=== PATIENT | female | born 1970 | race Caucasian/White ===

== ENCOUNTER → 2020-09-07 14:53 | Outpatient (BNVA) | payer MEDICARE, SELFPAY | PROVIDERS: PCP Physician Assistant Medical; Visit Provider Anesthesiology | DX: G89.29 Other chronic pain (principal); G62.9 Polyneuropathy, unspecified; F10.20 Alcohol dependence, uncomplicated; Z79.899 Other long term (current) drug therapy | CPT/HCPCS: 99203 ==

== ENCOUNTER → 2020-12-01 14:41 | Outpatient (BNVA) | payer MEDICARE, SELFPAY | PROVIDERS: PCP Physician Assistant Medical; Visit Provider Urology | DX: N32.81 Overactive bladder (principal); R35.1 Nocturia; R39.15 Urgency of urination | CPT/HCPCS: 81002; 99212 ==

== ENCOUNTER → 2022-01-06 14:08 | Outpatient (BNVA) | payer MEDICARE, SELFPAY | PROVIDERS: PCP Physician Assistant Medical; Visit Provider Nurse Practitioner Family | DX: G43.009 Migraine without aura, not intractable, without status migrainosus (principal); R20.2 Paresthesia of skin; R25.1 Tremor, unspecified | CPT/HCPCS: 99212 ==

== ENCOUNTER → 2022-04-04 11:32 | Outpatient (BNVA) | payer BC, MEDICAID, SELFPAY | PROVIDERS: PCP Internal Medicine Geriatric Medicine; Visit Provider Nurse Practitioner Family | DX: R20.2 Paresthesia of skin (principal) ==

== ENCOUNTER → 2023-01-23 13:03 | Outpatient (BNVA) | payer BC, MEDICAID, SELFPAY | PROVIDERS: PCP Internal Medicine Geriatric Medicine; Visit Provider Nurse Practitioner Family | DX: G43.009 Migraine without aura, not intractable, without status migrainosus (principal); R20.2 Paresthesia of skin; R25.1 Tremor, unspecified ==

== ENCOUNTER → 2023-05-19 09:45 | Outpatient (BNVA) | payer BC, MEDICAID, SELFPAY | PROVIDERS: PCP Internal Medicine Geriatric Medicine; Visit Provider Nurse Practitioner Family ==

== ENCOUNTER 2023-09-01 14:09 | Outpatient (AMB) | payer MEDICARE, MEDICAID, SELFPAY ==
--- NOTE | 2023-09-01 14:14 | A.OFFVIS_ITS ---
Intake Vital Signs 09/01/23 14:15 Weight 226 lb 4 oz BP 140/80 H Blood Pressure Location Lt brachial Position Sitting Pulse 110 H Pulse Source Pulse Oximeter Pulse Oximetry (%) 98 Oxygen Delivery Method Room Air Intake Visit Reasons: 3m follow up-Confirmed Intake Note: Pt presents today for migraine fup, states shes having headaches daily , ajovy helped at first and now they are back ajovy is due 09/06. Movement issues are about the same. Allergies baclofen Adverse Reaction (Unknown, Verified 09/01/23 14:19) Confusion topiramate [From Topamax] Adverse Reaction (Unknown, Verified 09/01/23 14:19) Confusion Medication List - Last Reconciled 09/01/23 by NANCI Pardo acetaminophen (Tylenol Extra Strength) 500 mg PO Q6H PRN amitriptyline 75 mg (1.5 x 50 mg) PO BEDTIME 30 days atorvastatin 20 mg PO DAILY carbidopa-levodopa 25-100 mg 1.5 tabs PO QID 30 days clonazepam 0.5 mg PO DAILY PRN denosumab (Prolia) mg subcut esomeprazole magnesium (Nexium) 40 mg PO DAILY fremanezumab-vfrm (Ajovy) 225 mg (1.5 mL) subcut ONCE 28 days furosemide 20 mg PO DAILY gabapentin 600 mg PO TID 30 days levothyroxine 88 mcg PO DAILY lurasidone (Latuda) 80 mg PO DAILY lurasidone 120 mg PO DAILY methocarbamol 750 mg PO QID PRN methylphenidate HCl ER 54 mg PO DAILY nicotine (Nicoderm) transdermal nicotine (polacrilex) (Nicorette) 2 mg buccal Q2H onabotulinumtoxinA (Botox) 200 units IM ONCE 12 weeks triamterene-hydrochlorothiazid 37.5-25 mg 1 cap PO DAILY venlafaxine ER 37.5 mg PO DAILY [Vitamin D + K 650/12.5mcg PO DAILY] HPI HPI Comments History of Present Illness Details 53-yr-old female presents for f/u visit. Pt denies any significant interval medical changes. Pt reports that her Ajovy is no longer effective. Thus we advised her to try Botox, which was recently approved. Having an almost daily migraine headache. She also has sharp shooting pain in the top of her head. This lasts just a second but is very intense. Uisng Tylenol most days. Sumatriptan was previously not effective. Hallucination have improved with recent reduction in CD-LD. Shaking is stable. Feeling more off-balance- not sure why. Denies lightheadedness. No falls. Mood- depressed and anxious. Seeing her therapist and psychiatrist. She is sleeping a ton . Previous HST was normal in 2019. She has 50lb since then. Endorses snoring, excessive daytime sleepiness. [facility] Medical History Overactive bladder Alcoholism Polyneuropathy Family History Mother Thyroid disease CHF (congestive heart failure) Afib PAD (peripheral artery disease) Maternal Grandfather HTN (hypertension) Paternal Grandmother Cancer Daughter No problems noted. Social History Alcohol intake: current Alcohol intake frequency: holidays/special occasions only Patient Tobacco Use Status: Current someday Tobacco user Cigarettes Per Day: 10 Years Smoked: 20 Substance Use Type: Marijuana Review of Systems Const All systems reviewed & are unremarkable except as noted in HPI and below Physical Exam Vital Signs: Last Vital Signs Pulse 110 H 09/01/23 14:15 BP 140/80 H 09/01/23 14:15 Pulse Ox 98 09/01/23 14:15 Oxygen Delivery Method Room Air 09/01/23 14:15 Const General: cooperative and no acute distress Orientation/consciousness: patient oriented x3 HEENT Head: Yes normocephalic Resp Effort & Inspection: normal respiratory effort and able to speak in complete sentences Neuro Other: No tremor today. FFM slightly decreased. General: patient oriented x3 and CN's II-XI intact bilaterally Cognition (Neuro): normal cognition Motor exam (neuro): 5/5 motor strength present throughout Psych Appearance: grossly normal Mental Status: mental status grossly normal Speech and movement: Clear speech present Affect: normal affect Attitude: cooperative Assessment & Plan Assessment & Plan (1) Chronic migraine without aura: Code(s): G43.709 - Chronic migraine without aura, not intractable, without status migrainosus (2) Snoring: Code(s): R06.83 - Snoring (3) Excessive daytime sleepiness: Comment: ESS 15 Code(s): G47.19 - Other hypersomnia (4) Sleep difficulties: Code(s): G47.9 - Sleep disorder, unspecified (5) Tremor: Comment: ? chronic neuroleptic exposure. 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 Code(s): R25.1 - Tremor, unspecified (6) Paresthesia: Comment: hands, forearms, collarbones, shins Code(s): R20.2 - Paresthesia of skin Plan HST to assess for sleep apnea For movement and RLS s/s: CBC and CMP- NL Will request autoimmune lab results- currently pending. Continue CD-LD 25-100mg 1.5 - 1 - 1.5 - 1 tab(s) Will refer to PT for gait training ? For chronic migraine: Start Btox as ordered. Once Botox started, stop Ajovy 225 mg sc- lost effectiveness Continue? amitriptyline 75 mg q.h.s. Trial Rizatripatn prn. May continue as needed Aleve or Advil at headache onset Tylenol prn at onset of stabbing headache. Previous migraine prevention trials- topiramate- caused confusion, depakote- not tolerated, tegretol/trileptal- electrolyte disturbance , and lisinopril- ineffective. Would avoid BBs- as pt is currently on amlodipine w/ low and on multiple medications that can induce orthostatic hypotension- such as carbidolopa- levodopa, rexulti Future considerations: indomethacin for stabbing LOPEZ (but would need to hold her Meloxicam). ? For paresthesias: Continue Gabapentin 600mg tid. ? f/u in 3 months or sooner prn. Orders: Orders RT home sleep study Today G47.19 - Other hypersomnia, G47.9 - Sleep disorder, unspecified, R06.83 - Snoring PT Evaluation and Treatment Today G62.9 - Polyneuropathy, unspecified, R20.2 - Paresthesia of skin, R26.81 - Unsteadiness on feet Medications: New rizatriptan max 2 tabs per day or 4 tabs per week 5 - 10 mg (0.5 - 1 x 10 mg) PO Q2H 21 days PRN 12 tabs 3RF migraine headache Coding Level of Care Code Est Pt Level 4 (09841) Diagnoses Chronic migraine without aura G43.709 Snoring R06.83 Excessive daytime sleepiness G47.19 Sleep difficulties G47.9 Tremor R25.1 Paresthesia R20.2
[2023-09-01 14:15] VITALS: BP 140/80; PULSE 110; O2SAT 98
== END 2023-09-01 15:22 | disposition home or self-care (01) ==
PROVIDERS: PCP Internal Medicine Geriatric Medicine; Visit Provider Nurse Practitioner Family
DX: G43.709 Chronic migraine without aura, not intractable, without status migrainosus (principal); R06.83 Snoring; G47.19 Other hypersomnia; G47.9 Sleep disorder, unspecified; R25.1 Tremor, unspecified; R20.2 Paresthesia of skin
CPT/HCPCS: 99214

== ENCOUNTER → 2023-09-01 14:09 | Outpatient (BNVA) | payer MEDICARE, MEDICAID, SELFPAY | PROVIDERS: PCP Internal Medicine Geriatric Medicine; Visit Provider Nurse Practitioner Family | DX: G43.709 Chronic migraine without aura, not intractable, without status migrainosus (principal); R06.83 Snoring; G47.19 Other hypersomnia; G47.9 Sleep disorder, unspecified; R25.1 Tremor, unspecified; R44.3 Hallucinations, unspecified; R26.81 Unsteadiness on feet; R20.2 Paresthesia of skin; G62.9 Polyneuropathy, unspecified | CPT/HCPCS: 99212 ==

== ENCOUNTER 2023-09-05 14:29 | Outpatient (AMB) | payer MEDICARE, MEDICAID, SELFPAY ==
--- NOTE | 2023-09-05 14:32 | MHC.OFFVIS ---
Intake Vital Signs 09/05/23 14:33 Height 5 ft 5 in Weight 228 lb 6 oz BMI 38.0 BP 158/86 H Blood Pressure Location Lt brachial Position Sitting Respiration 18 Pulse 100 Pulse Source Pulse Oximeter Pulse Oximetry (%) 98 Oxygen Delivery Method Room Air Intake Visit Reasons: BOTOX Intake Note: Pt presents to office for Botox injections. Patient Access Representative Required: No Allergies baclofen Adverse Reaction (Unknown, Verified 09/05/23 14:33) Confusion topiramate [From Topamax] Adverse Reaction (Unknown, Verified 09/05/23 14:33) Confusion Medication List - Last Reconciled 09/05/23 by Deya Alfonso MD acetaminophen (Tylenol Extra Strength) 500 mg PO Q6H PRN amitriptyline 75 mg (1.5 x 50 mg) PO BEDTIME 30 days atorvastatin 20 mg PO DAILY carbidopa-levodopa 25-100 mg 1.5 tabs PO QID 30 days clonazepam 0.5 mg PO DAILY PRN denosumab (Prolia) mg subcut esomeprazole magnesium (Nexium) 40 mg PO DAILY furosemide 20 mg PO DAILY gabapentin 600 mg PO TID 30 days levothyroxine 88 mcg PO DAILY lurasidone (Latuda) 80 mg PO DAILY lurasidone 120 mg PO DAILY methocarbamol 750 mg PO QID PRN methylphenidate HCl ER 54 mg PO DAILY onabotulinumtoxinA (Botox) 200 units IM ONCE 12 weeks rizatriptan 5 - 10 mg (0.5 - 1 x 10 mg) PO Q2H PRN 21 days triamterene-hydrochlorothiazid 37.5-25 mg 1 cap PO DAILY venlafaxine ER 37.5 mg PO DAILY [Vitamin D + K 650/12.5mcg PO DAILY] HPI HPI Comments History of Present Illness Details ? 53y/o female comes for treatment of migraines with botox. ??? Most frequent reported adverse reactions following injection of botox for chronic migraine include neck pain (9%), headache(5%), eyelid ptosis(4%), migraine(4%), muscular weakness(4%), musculuskeletal stiffness(4%), bronchitis(3%), injection site pain (3%), musculoskeletal pain(3%), myalgia(3%), facial paresis(2%), HTN(2%) and muscle spasms(2%) were discussed in detail. ??? Botulinum toxin typeA 200units Lot no [id number] expiration Dec 2025 was diluted with 4 cc of normal saline . ??? Muscles injected- ??? Frontalis 4 sites ??? Procerus 1 site ??? Correspondence Section Supervisor- 2 sites ??? Temporalis- 8 sites ??? Occipitalis- 6 sites ??? Cervical paraspinals- 4 sites ??? Trapezius- 6 sites- 10 units each ??? 5 units each in 31 site ??? Total use- 185units ??? Discarded-15units [facility] Medical History Overactive bladder Alcoholism Polyneuropathy Family History Mother Thyroid disease CHF (congestive heart failure) Afib PAD (peripheral artery disease) Maternal Grandfather HTN (hypertension) Paternal Grandmother Cancer Daughter No problems noted. Social History Alcohol intake: current Alcohol intake frequency: holidays/special occasions only Patient Tobacco Use Status: Current someday Tobacco user Cigarettes Per Day: 10 Years Smoked: 20 Substance Use Type: Marijuana Physical Exam Vital Signs: Last Vital Signs Pulse 100 09/05/23 14:33 Resp 18 09/05/23 14:33 BP 158/86 H 09/05/23 14:33 Pulse Ox 98 09/05/23 14:33 Oxygen Delivery Method Room Air 09/05/23 14:33 BMI result Body Mass Index 38.0 Const General: cooperative and no acute distress Orientation/consciousness: patient oriented x3 HEENT Head: Yes normocephalic Resp Effort & Inspection: normal respiratory effort and able to speak in complete sentences Neuro Other: No tremor today. FFM slightly decreased. General: patient oriented x3 and CN's II-XI intact bilaterally Cognition (Neuro): normal cognition Motor exam (neuro): 5/5 motor strength present throughout Psych Appearance: grossly normal Mental Status: mental status grossly normal Speech and movement: Clear speech present Affect: normal affect Attitude: cooperative Office Procedures Botulinum toxin Injection 66245 - Migraine Procedure code (CPT) selection complete Office Meds onabotulinumtoxinA 200 unit solution for injection Performing Provider: Deya Alfonso MD Performing Location: [facility] [place] [facility] Administered by: Deya Alfonso MD on 09/05/23 15:05 Dose Route Admin Location Dispensed Lot Number Expiration Date [facility] Paper Stripper 185 unit subcut 200 units [id number] 12/14/25 8261-7354-02 [employer]ERGAN/BOTOX Comments: see hpi Assessment & Plan Assessment & Plan (1) Chronic migraine without aura: Code(s): G43.709 - Chronic migraine without aura, not intractable, without status migrainosus Plan Patient tolerated the procedure well She will call with any side effects Orders: Orders AMB Botulinum toxin Injection Today G43.709 - Chronic migraine without aura, not intractable, without status migrainosus Coding Level of Care Code Est Pt Level 1 (73117) Diagnoses Chronic migraine without aura G43.709 CPT Codes Botox Injection - Botox 3: 64800 - Migraine ([id number])
[2023-09-05 14:33] VITALS: BP 158/86; PULSE 100; RESP 18; O2SAT 98; BMI 38.0
== END 2023-09-05 15:20 | disposition home or self-care (01) ==
PROVIDERS: PCP Internal Medicine Geriatric Medicine; Visit Provider Psychiatry & Neurology Neurology
DX: G43.709 Chronic migraine without aura, not intractable, without status migrainosus (principal)
CPT/HCPCS: 64615

== ENCOUNTER → 2023-09-05 14:29 | Outpatient (BNVA) | payer MEDICARE, MEDICAID, SELFPAY | PROVIDERS: PCP Internal Medicine Geriatric Medicine; Visit Provider Psychiatry & Neurology Neurology | DX: G43.709 Chronic migraine without aura, not intractable, without status migrainosus (principal); G62.9 Polyneuropathy, unspecified | CPT/HCPCS: 64615; 99211; J0585 ==

== ENCOUNTER → 2023-10-12 15:11 | Outpatient (REF) | payer MEDICARE, MEDICAID, SELFPAY | LOC: HO.SL 15:11 | PROVIDERS: PCP Internal Medicine Geriatric Medicine; Visit Provider Nurse Practitioner Family | DX: G47.19 Other hypersomnia (principal); G47.9 Sleep disorder, unspecified; R06.83 Snoring | CPT/HCPCS: 95806 ==

== ENCOUNTER → 2023-10-12 15:26 | Outpatient (BNV) | payer MEDICARE, MEDICAID, SELFPAY | PROVIDERS: PCP Internal Medicine Geriatric Medicine; Visit Provider Psychiatry & Neurology Neurology | DX: R06.83 Snoring (principal) | CPT/HCPCS: 95806 ==

== ENCOUNTER 2024-01-30 12:38 | Outpatient (REF) | payer MEDICARE, MEDICAID, SELFPAY ==
--- NOTE | 2024-01-30 12:42 | EEG_ITS ---
FINDINGS: The waking background activity consists of low voltage fast frequencies seen diffusely intermixed with the low voltage posterior 9 to 10 hertz alpha. Intermittent sharp theta discharges at 4 to 5 hertz were seen from the temporal regions, left greater than right, sometimes with phase reversal at T3. Photic stimulation is without activation. Hyperventilation was omitted. IMPRESSION: This EEG is considered mildly abnormal due to intermittent sharp transients seen predominantly from the left temporal region, which could correlate with the seizure focusing the left temporal region. Clinical correlation is suggested. MD SHARMAINE Recinos/CASE / [id number]
== END 2024-01-30 12:39 | disposition home or self-care (01) ==
LOC: HO.NEURO 12:38
PROVIDERS: PCP Internal Medicine Geriatric Medicine; Visit Provider Nurse Practitioner Family
DX: R25.9 Unspecified abnormal involuntary movements (principal)
CPT/HCPCS: 95816

== ENCOUNTER 2024-02-29 10:22 | Outpatient (AMB) | payer MEDICARE, MEDICAID, SELFPAY ==
--- NOTE | 2024-02-29 10:28 | A.OFFVIS_ITS ---
Vital Signs 02/29/24 10:32 Height 5 ft 5 in Weight 221 lb 6 oz BMI 36.8 BP 124/82 Blood Pressure Location Rt brachial Position Sitting Pulse 103 H Pulse Source Pulse Oximeter Pulse Oximetry (%) 96 Intake Visit Reasons: 3 month FU - LVM Intake Note: Patient presents for 3 month follow up. Patient having some concerns that she will discuss with provider,here for asleep study results Allergies baclofen Adverse Reaction (Unknown, Verified 02/29/24 10:34) Confusion topiramate [From Topamax] Adverse Reaction (Unknown, Verified 02/29/24 10:34) Confusion Medication List - Last Reconciled 02/29/24 by NANCI Pardo acetaminophen (Tylenol Extra Strength) 500 mg PO Q6H PRN albuterol sulfate 90 mcg/actuation inhalation amitriptyline 75 mg (1.5 x 50 mg) PO BEDTIME 30 days atorvastatin 20 mg PO DAILY carbamazepine ER (Tegretol XR) 100 mg PO BID 30 days carbidopa-levodopa 25-100 mg 1.5 tabs PO QID 30 days clonazepam 0.5 mg PO DAILY PRN clonidine 1 patch transdermal QWEEK cyclobenzaprine 5 mg PO BEDTIME denosumab (Prolia) mg subcut esomeprazole magnesium (Nexium) 40 mg PO DAILY estradiol 0.5 mg PO DAILY fremanezumab-vfrm (Ajovy) mg subcut furosemide 20 mg PO DAILY gabapentin 600 mg PO TID 30 days levothyroxine 88 mcg PO DAILY levothyroxine 88 mcg PO DAILY lurasidone 120 mg PO DAILY lurasidone (Latuda) 40 mg PO DAILY medroxyprogesterone 2.5 mg PO DAILY methocarbamol 750 mg PO QID PRN methylphenidate HCl ER 54 mg PO DAILY onabotulinumtoxinA (Botox) 200 units IM ONCE 12 weeks rizatriptan 5 - 10 mg (0.5 - 1 x 10 mg) PO Q2H PRN 21 days triamterene-hydrochlorothiazid 37.5-25 mg 1 cap PO DAILY venlafaxine ER 37.5 mg PO DAILY venlafaxine ER 75 mg PO DAILY [Vitamin D + K 650/12.5mcg PO DAILY] HPI Comments Details: 53-yr-old female presents for f/u visit. Pt reports she is having more difficulty with problem solving. Feels even simpler things evade her. She has stopped drinking alcohol. She had neuropsych eval a few years ago. HST showed AHI 2.9/hr w/ O2 artis 82%, w/ SpO2 < 90% for 19% of the study. She was advised to undergo f/u in-lab PSG, which she was unable to do as her PT- 1 request was denied. She does endorse SOB on light exertion, such as getting ready for bed. Pt denies dx of COPD or asthma. Believes her PCP has recently referred her for pulmonology consult. She states the Botox was not helpful, and was painful, so she did not resume it. She has not had many headaches in the last month, so has not refilled her Ajovy. She has been noticing some right sided cervico-occipital region pain, it is pretty intense and lasts about 5 minutes. This does not shoot or radiate. Triggered by moving/turning/extending her head too much. She has not tried touching the area during the attack. She has been noticing electrical pain in the left maxillary region, comes on sporadically. Not triggered by light mechanical stimuli. May see shooting stars when she blows her nose. Notes that when she presses on her eyes, this triggers seeing colors, and the colors have changed form more colorful to brownish. She is off of [employer]. Pt had called in December, to report episode of full body shakes with arms and legs all involved. which only lasted a moment. This was similar to a full body tics she started noticing last fall, but had worsened since started and then increased wellbutrin (started in Jul, used for smoking cessation). She had 15 episodes in Nov- lasting moments. At that time we ordered an EGG. Today notes she had 15 episodes in Jul 2023. She denies being able to suppress the episode, has no warning. Usually happens if very tired. Does not feel she could talk during the episode, but has not been witnessed. She alos has episodes of spacing out and being disassociating. She is not sure if this happens w/ the tic like episodes. Had 13 episodes in November- and none since she stopped Wellbutrin. She has not had any episodes since stopping Wellbutrin a week or 2 ago. Today she notes her son has been dx'd w/ absence seizures. Pt does not drive. 01/30/24, IMPRESSION: This EEG is considered mildly abnormal due to intermittent sharp transients seen predominantly from the left temporal region, which could correlate with the seizure focusing the left temporal region. Clinical correlation is suggested. Note pt had not held Gabapentin prior to EEG. [facility] Medical History Overactive bladder Alcoholism Polyneuropathy Family History Mother Thyroid disease CHF (congestive heart failure) Afib PAD (peripheral artery disease) Maternal Grandfather HTN (hypertension) Paternal Grandmother Cancer Daughter No problems noted. Social History Alcohol intake: current Alcohol intake frequency: holidays/special occasions only Patient Tobacco Use Status: Current someday Tobacco user Cigarettes Per Day: 10 Years Smoked: 20 Substance Use Type: Marijuana Physical Exam Vital Signs: Last Vital Signs Pulse 103 H 02/29/24 10:32 BP 124/82 02/29/24 10:32 Pulse Ox 96 02/29/24 10:32 BMI result Body Mass Index 36.8 Const General: cooperative and no acute distress Orientation/consciousness: patient oriented x3 Resp Effort & Inspection: normal respiratory effort and able to speak in complete sentences Neuro Other: Mild BUE postural trmeor today. FFM slightly decreased. General: patient oriented x3 Cranial nerves: Yes CN's II-XII intact bilaterally Cognition (Neuro): normal cognition Psych Appearance: grossly normal Mental Status: mental status grossly normal Speech and movement: Clear speech present Affect: normal affect Attitude: cooperative Assessment & Plan Assessment & Plan (1) Chronic migraine without aura: Code(s): G43.709 - Chronic migraine without aura, not intractable, without status migrainosus Category: Medical (2) Tremor: Comment: ? chronic neuroleptic exposure. 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 Code(s): R25.1 - Tremor, unspecified Category: Medical (3) Seizure: Comment: Episodes of involuntary movements- Likely induced by Bupropion use. Code(s): R56.9 - Unspecified convulsions Category: Medical (4) Involuntary movements: Code(s): R25.9 - Unspecified abnormal involuntary movements Category: Medical Plan For involunatry moevements: Reviewed EEG: mildly abnormal due to intermittent sharp transients seen predominantly from the left temporal region. These episodes occurred while pt was on Bupropion, which can lower seizure threshold. Thus, it is likely that the Bupropion use did induce seizure activity. Pt advised to avoid using Bupropion in the future. For facial pain and paresthesias: Will start CarbamazepineER 100mg bid. Pt aware we will need to monitor WBC and Na + leveles. Continue Gabapentin 600mg tid. Check CBC and CMP. Reviewed HST- AHI 2.9/hr w/ O2 artis 82%, w/ SpO2 < 90% for 19% of the study. Results did not show sleep apnea, however does show noctural hypoxemia. Concur w/ pulmonary consult- per pt, made by PCP. For movement and RLS s/s: Reviewed autoimmune lab results- normal. Continue CD-LD 25-100mg 1.5 - 1 - 1.5 - 1 tab(s) For new occipital-cervical pains: Pt to check if pain is aggravated or alleviated by touch. If aggravated, will refr to pain management. For chronic migraine: Stop Botox- was not tolerated and was ineffective. May continue to hold Ajovy, if migraine frequency increases to > 4 days per month, resume Ajovy 225 mg sc. Continue?amitriptyline 75 mg q.h.s. Rizatripatn prn. May continue as needed Aleve or Advil at headache onset Tylenol prn at onset of stabbing headache. Previous migraine prevention trials- topiramate- caused confusion, depakote- not tolerated, tegretol/trileptal- electrolyte disturbance in setting of polypharmacy, and lisinopril- ineffective. Migraine tx contraindications: Would avoid BBs- as pt is currently on amlodipine w/ low and on multiple medications that can induce orthostatic hypotension- such as carbidolopa-levodopa, rexulti Future considerations: indomethacin for stabbing LOPEZ (but would need to hold her Meloxicam). For cognition: Consider f/u neuro-psych eval. ? f/u in 6 months or sooner prn. Addendum: Concern was raised by pharmacy r/t Carbamazepine use w/ Latuda. Carbamazeoine order was changed to Oxcarbazepine 150mg bid. Pt updated on this change. Orders: Orders Complete Blood Count Auto Diff 02/29/24 R56.9 - Unspecified convulsions Comprehensive Met. Panel 02/29/24 R56.9 - Unspecified convulsions Medications: New carbamazepine ER (Tegretol XR) 100 mg PO BID 60 tabs 6RF 30 days Coding Level of Care Code Est Pt Level 4 (25397) Complex EM visit Add On G2211 Diagnoses Chronic migraine without aura G43.709 Tremor R25.1 Seizure R56.9 Involuntary movements R25.9
[2024-02-29 10:32] VITALS: BP 124/82; PULSE 103; O2SAT 96; BMI 36.8
== END 2024-02-29 11:29 | disposition home or self-care (01) ==
PROVIDERS: PCP Internal Medicine Geriatric Medicine; Visit Provider Nurse Practitioner Family
DX: G43.709 Chronic migraine without aura, not intractable, without status migrainosus (principal); R25.1 Tremor, unspecified; R56.9 Unspecified convulsions; R25.9 Unspecified abnormal involuntary movements
CPT/HCPCS: 99214; G2211

== ENCOUNTER → 2024-02-29 10:22 | Outpatient (BNVA) | payer MEDICARE, MEDICAID, SELFPAY | PROVIDERS: PCP Internal Medicine Geriatric Medicine; Visit Provider Nurse Practitioner Family | DX: R56.9 Unspecified convulsions (principal); R25.9 Unspecified abnormal involuntary movements; R25.1 Tremor, unspecified; G43.709 Chronic migraine without aura, not intractable, without status migrainosus | CPT/HCPCS: 99212 ==

== ENCOUNTER 2024-08-10 10:08 | Outpatient (REF) | payer OTHER, SELFPAY ==
--- NOTE | ~2024-08-10 | MR_ITS ---
EXAMINATION: MR BRAIN WITHOUT CONTRAST CLINICAL INFORMATION: Increased headaches. Change in gait. COMPARISON: None available. TECHNIQUE: MRI of the brain was obtained using routine sequences without contrast. FINDINGS: No focal restricted diffusion is demonstrated to suggest acute or subacute cerebral ischemia. No evidence of acute or chronic hemorrhagic products on heme-sensitive imaging. Minimal nonspecific scattered periventricular and deep white matter T2 FLAIR hyperintensities most commonly seen with mild underlying microangiopathy. Proportional prominence of the ventricles and sulcal spaces without evidence of obstructive hydrocephalus. No abnormal mass effect. No midline shift. Normal appearance of the pituitary gland. Normal positioning of the cerebellar tonsils. Normal arterial and venous vascular flow voids are present. Normal, homogeneous marrow signal. Moderate degenerative spondyloarthropathy of the visualized upper cervical spine. Mild mucosal thickening of the paranasal sinuses. Moderate rightward nasal septal deviation. No signal abnormalities within the mastoids. MR/MR head/brain wo con IMPRESSION: 1. No acute intracranial abnormalities. 2. Minimal nonspecific white matter changes most commonly seen with mild underlying microangiopathy. 3. No additional MRI abnormalities to explain the patient's symptoms. Electronically signed by: Pola Winslow DO 09/04/2024 02:12 PM EDT
== END 2024-08-10 10:09 | disposition home or self-care (01) ==
LOC: HO.MRI 10:08
PROVIDERS: PCP Internal Medicine Geriatric Medicine; Visit Provider Nurse Practitioner Family
DX: R41.89 Other symptoms and signs involving cognitive functions and awareness (principal); R46.89 Other symptoms and signs involving appearance and behavior
CPT/HCPCS: 70551

== ENCOUNTER 2024-08-21 11:46 | Outpatient (REF) | payer OTHER, SELFPAY ==
[2024-08-21 18:11] LABS: MANUAL DIFF FLAG NO
[2024-08-21 18:22] LABS: Basophils Absolute Auto 0.1 X10*3/uL (0.0-0.2); Basophils Percent Auto 1.1 % (0-2); Eosinophils Absolute Auto 0.3 X10*3/uL (0.0-0.4); Eosinophils Percent Auto 3.6 % (0-4); Hematocrit 48.6 % (37.0-47.0); Hemoglobin 16.6 g/dl (12.0-16.0); Imm Gran Abs Auto 0.03 X10*3/uL (0.00-0.03); Imm Gran Pct Auto 0.4 % (0.0-0.4); Lymphocytes Absolute Auto 2.2 X10*3/uL (1.2-4.9); Lymphocytes Percent Auto 26.3 % (20-40); Mean Corpuscular HGB Conc 34.2 g/dl (31.0-35.0); Mean Corpuscular Hemoglobin 29.3 pg (27.0-33.0); Mean Corpuscular Volume 85.9 fL (80.0-98.0); Mean Platelet Volume 11.5 fL (9.4-12.3); Monocytes Absolute Auto 0.4 X10*3/uL (0.1-1.2); Monocytes Percent Auto 4.8 % (2-11); NRBC Pct Auto 0.2 /100WBC (0.0-0.2); Neutrophils Absolute Auto 5.2 x10*3/uL (2.0-8.3); Neutrophils Percent Auto 63.8 % (45-73); Platelet Count 339 X10*3/uL (160-400); Red Blood Count 5.66 X10*6/uL (4.20-5.50); Red Cell Distribution Width 16.6 % (11.0-16.0); White Blood Count 8.2 X10*3/uL (4.8-10.8)
[2024-08-21 18:48] LABS: Alanine Aminotransferase 20 U/L (0-31); Albumin Level 4.7 g/dL (3.5-5.0); Alkaline Phosphatase 119 U/L (39-117); Anion Gap 14 (12-20); Aspartate Amino Transferase 15 U/L (5-31); Bilirubin Total 0.2 mg/dL (0.0-1.0); Blood Urea Nitrogen 5 mg/dL (9-16); Calcium 9.7 mg/dL (8.4-10.2); Carbon Dioxide 31 mmol/L (22-29); Chloride 98 mmol/L (96-108); Estimated Glomerular Filt Rate > 60; Glucose Random 109 mg/dL (60-115); Potassium 3.4 mmol/L (3.3-5.1); Sodium 140 mmol/L (135-145); TSH reflex Free T4 3.63 uIU/mL (0.32-4.0)
[2024-08-21 18:53] LABS: Rheumatoid Factor < 13.0 IU/mL (<15.0)
[2024-08-21 19:00] LABS: Folate 5.1 ng/mL (> or = 4.0); Vitamin B12 337 pg/mL (200-900)
[2024-08-23 12:29] LABS: Anti Nuclear Antibody Screen NEGATIVE (NEGATIVE)
[2024-08-23 16:18] LABS: Homocysteine 15.4 umol/L (<10.4)
[2024-08-25 10:48] LABS: Methylmalonic Acid 237 nmol/L (55-335)
[2024-08-26 16:58] LABS: Vitamin D 25-OH, D2 <4 ng/mL; Vitamin D 25-OH, D3 30 ng/mL; Vitamin D 25-OH, Total 30 ng/mL (30-100)
[2024-08-29 16:09] LABS: Nicotinamide <20 ng/mL (see note); Vit B3 - Nicotinic Acid <20 ng/mL (see note); Vitamin B2 (Riboflavin) <5.0 nmol/L (6.2-39.0)
== END 2024-08-21 11:47 | disposition home or self-care (01) ==
LOC: HO.HKASLDS 11:46
PROVIDERS: Visit Provider Nurse Practitioner Family
DX: R56.9 Unspecified convulsions (principal); R25.1 Tremor, unspecified; R20.2 Paresthesia of skin; D64.9 Anemia, unspecified
CPT/HCPCS: 36415; 80053; 82306; 82607; 82746; 83090; 83921; 84252; 84443; 84591; 85025; 86038; 86431

== ENCOUNTER 2024-08-24 10:33 | Outpatient (REF) | payer OTHER, SELFPAY ==
[2024-08-24 10:54] LABS: MANUAL DIFF FLAG NO
[2024-08-24 11:00] LABS: Basophils Absolute Auto 0.1 X10*3/uL (0.0-0.2); Basophils Percent Auto 1.1 % (0-2); Eosinophils Absolute Auto 0.3 X10*3/uL (0.0-0.4); Eosinophils Percent Auto 3.8 % (0-4); Hematocrit 45.6 % (37.0-47.0); Hemoglobin 15.6 g/dl (12.0-16.0); Imm Gran Abs Auto 0.04 X10*3/uL (0.00-0.03); Imm Gran Pct Auto 0.5 % (0.0-0.4); Lymphocytes Absolute Auto 1.8 X10*3/uL (1.2-4.9); Lymphocytes Percent Auto 21.1 % (20-40); Mean Corpuscular HGB Conc 34.2 g/dl (31.0-35.0); Mean Corpuscular Hemoglobin 29.4 pg (27.0-33.0); Mean Platelet Volume 10.4 fL (9.4-12.3); Monocytes Absolute Auto 0.4 X10*3/uL (0.1-1.2); Monocytes Percent Auto 4.2 % (2-11); Neutrophils Absolute Auto 5.9 x10*3/uL (2.0-8.3); Neutrophils Percent Auto 69.3 % (45-73); Platelet Count 257 X10*3/uL (160-400); Red Cell Distribution Width 16.3 % (11.0-16.0); White Blood Count 8.4 X10*3/uL (4.8-10.8)
[2024-08-24 11:42] LABS: Alanine Aminotransferase 22 U/L (0-31); Albumin Level 4.6 g/dL (3.5-5.0); Alkaline Phosphatase 106 U/L (39-117); Anion Gap 15 (12-20); Aspartate Amino Transferase 20 U/L (5-31); Bilirubin Total 0.4 mg/dL (0.0-1.0); Blood Urea Nitrogen 7 mg/dL (9-16); Calcium 9.8 mg/dL (8.4-10.2); Carbon Dioxide 27 mmol/L (22-29); Chloride 100 mmol/L (96-108); Estimated Glomerular Filt Rate > 60; Glucose Random 111 mg/dL (60-115); Potassium 3.3 mmol/L (3.3-5.1); Sodium 139 mmol/L (135-145); Total Protein 8.3 g/dL (6.5-8.0)
[2024-08-24 12:07] LABS: Vitamin B12 339 pg/mL (200-900)
[2024-08-29 15:24] LABS: Vitamin B1 7 nmol/L (8-30); Vitamin B6 2.6 ng/mL (2.1-21.7)
[2024-08-31 15:49] LABS: Vitamin B5 (Pantothenic Acid) <=40 ng/mL (<275)
== END 2024-08-24 10:34 | disposition home or self-care (01) ==
LOC: HO.LAB 10:33
PROVIDERS: PCP Internal Medicine Geriatric Medicine; Visit Provider Nurse Practitioner Family
DX: R56.9 Unspecified convulsions (principal); R25.1 Tremor, unspecified; R20.0 Anesthesia of skin; D64.9 Anemia, unspecified
CPT/HCPCS: 36415; 80053; 82607; 84207; 84425; 84591; 85025

== ENCOUNTER 2024-09-04 11:29 | Outpatient (AMB) | payer OTHER, SELFPAY ==
[2024-09-04 11:31] VITALS: BP 116/72; BMI 36.8
--- NOTE | 2024-09-04 11:31 | A.OFFVIS_ITS ---
Vital Signs 09/04/24 11:31 Height 5 ft 5 in Weight 221 lb BMI 36.8 BP 116/72 Blood Pressure Location Rt brachial Position Sitting Intake Visit Reasons: Follow up Intake Note: Patient presents for follow up Allergies baclofen Adverse Reaction (Unknown, Verified 09/04/24 11:34) Confusion topiramate [From Topamax] Adverse Reaction (Unknown, Verified 09/04/24 11:34) Confusion Medication List - Last Reconciled 09/04/24 by NANCI Pardo acetaminophen (Tylenol Extra Strength) 500 mg PO Q6H PRN albuterol sulfate 90 mcg/actuation inhalation amitriptyline 75 mg (1.5 x 50 mg) PO BEDTIME 30 days atorvastatin 20 mg PO DAILY carbidopa-levodopa 25-100 mg 1.5 tabs PO QID 30 days clonazepam 0.5 mg PO DAILY PRN clonidine 1 patch transdermal QWEEK cyanocobalamin (vitamin B-12) 500 mcg PO DAILY 30 days cyclobenzaprine 5 mg PO BEDTIME denosumab (Prolia) mg subcut esomeprazole magnesium (Nexium) 40 mg PO DAILY estradiol 0.5 mg PO DAILY fremanezumab-vfrm (Ajovy) 225 mg (1.5 mL) subcut ONCE 30 days furosemide 20 mg PO DAILY gabapentin 600 mg PO TID 30 days levothyroxine 88 mcg PO DAILY levothyroxine 88 mcg PO DAILY lurasidone 120 mg PO DAILY lurasidone (Latuda) 40 mg PO DAILY medroxyprogesterone 2.5 mg PO DAILY methylphenidate HCl ER 54 mg PO DAILY onabotulinumtoxinA (Botox) 200 units IM ONCE 12 weeks oxcarbazepine (Trileptal) 300 mg (2 x 150 mg) PO BID 30 days rizatriptan 5 - 10 mg (0.5 - 1 x 10 mg) PO Q2H PRN 21 days triamterene-hydrochlorothiazid 37.5-25 mg 1 cap PO DAILY venlafaxine ER 37.5 mg PO DAILY venlafaxine ER 75 mg PO DAILY [Vitamin D + K 650/12.5mcg PO DAILY] HPI Comments Details: 53-yr-old female presents for f/u visit of tremor, cognition, migraine, and seizure. Interval labs were notable for low Vit B1 7, B2 < 5. Brain MRI completed, unfortunately results are pending. Her psychiatrist has decreased her venlafaxine now on 40mg qhs and started her on Vraylar- titrating up slowly. However she is unclear if she is also on latuda or wenaing off latuda- she will check. Her PCP changed the methocarbamol to cyclobenzaprine. She states she has been having word finding difficulties, word swapping, and inventing words when she cannot think of the word. She has slurred speech at times. She has difficulty focusing even w/ her neuro-stimulant use. She has difficulty knowing what day it is, what time of day it is. She had neuropsych eval a few years ago. She notes they advised her to stop drinking, which she has but the cognitive issues persist. Tremor is usually noticed with holding a fork. She is having difficulty with balance. Has difficulty initiating turning to the left. No falls. She states the episodes of right sided headcahe- sharp, electrical pain in the left maxillary region- were better but have reoccurred more recently. She was noticing an uptick in her migraine attacks- now a couple times a week. She did miss a month of Ajovy as the autoinjector lost the solution while opening it. She did start Oxcarbazapine. Recent serum Na level was normal. She saw a spine clinic for neck pain and was offered trigger point injections- she is considering. In April, she had one episode where she was sitting, woke feeling dazed, lost time, her upper body moved side to side and left arm raised- she was aware but could not suppress it. This was f/b feeling drowsy. She thinks maybe this was a seizure but was not sure. She denies any unusual change in routine- and slept ok the night before. Denies episodes since. Wonders if previous gadiel vu symptoms were seizure episodes. Previous seizure hx: In December 2023 pt reported episode of full body shakes with arms and legs all involved. which only lasted a moment. This was similar to a full body tics she started noticing last fall, but had worsened since started and then increased wellbutrin (started in Jul, used for smoking cessation). She had 15 episodes in Nov- lasting moments. January 2024 EEG was suggestive of seizure activity. She had 15 episodes in Jul 2023. She denies being able to suppress the episode, has no warning. Usually happens if very tired. Does not feel she could talk during the episode, but has not been witnessed. She has episodes of spacing out and being disassociating. She is not sure if this happens w/ the tic like episodes. Had 13 episodes in November- and none since she stopped Wellbutrin. She has not had any episodes since stopping Wellbutrin a week or 2 ago. Her son has been dx'd w/ absence seizures. Pt does not drive. Previous work-up: 01/30/24, IMPRESSION: This EEG is considered mildly abnormal due to intermittent sharp transients seen predominantly from the left temporal region, which could correlate with the seizure focusing the left temporal region. Clinical correlation is suggested. Note pt had not held Gabapentin prior to EEG. 10/23/2023, HST showed AHI 2.9/hr w/ O2 artis 82%, w/ SpO2 < 90% for 19% of the study. She was advised to undergo f/u in-lab PSG, which she was unable to do as her PT- 1 request was denied. Pt denies dx of COPD or asthma. Believes her PCP has recently referred her for pulmonology consult. COUNT INCLUDES [facility] Medical History (Updated 09/04/24 @ 12:29 by NANCI Pardo) Anemia Overactive bladder Alcoholism Polyneuropathy Family History Mother Thyroid disease CHF (congestive heart failure) Afib PAD (peripheral artery disease) Maternal Grandfather HTN (hypertension) Paternal Grandmother Cancer Daughter No problems noted. Social History Alcohol intake: current Alcohol intake frequency: holidays/special occasions only Patient Tobacco Use Status: Current someday Tobacco user Cigarettes Per Day: 10 Years Smoked: 20 Substance Use Type: Marijuana Physical Exam Vital Signs: Last Vital Signs BP 116/72 09/04/24 11:31 BMI result Body Mass Index 36.8 Const General: cooperative, no acute distress and alert Resp Effort & Inspection: normal respiratory effort and able to speak in complete sentences Neuro Other: A&O x's 3 w/ mild STM lapses and intermittent word swapping. Mild decreased expression No BUE postural tremor appreciated today. No appreciable BUE tone today. FFM slightly decreased. Stands ok today, short steps, steady gait. Cranial nerves: Yes CN's II-XII intact bilaterally Motor exam (neuro): 5/5 motor strength present throughout Psych Speech and movement: Clear speech present Affect: normal affect Attitude: cooperative Assessment & Plan Assessment & Plan (1) Cognitive dysfunction: Code(s): F09 - Unspecified mental disorder due to known physiological condition Category: Medical (2) Word finding difficulty: Code(s): R47.89 - Other speech disturbances Category: Medical (3) Chronic migraine without aura: Code(s): G43.709 - Chronic migraine without aura, not intractable, without status migrainosus Category: Medical (4) Tremor: Comment: ? chronic neuroleptic exposure. 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 Code(s): R25.1 - Tremor, unspecified Category: Medical (5) Seizure: Comment: Episodes of involuntary movements- Likely induced by Bupropion use. Code(s): R56.9 - Unspecified convulsions Category: Medical (6) Involuntary movements: Code(s): R25.9 - Unspecified abnormal involuntary movements Category: Medical Plan Reviewed labs- start vit B2 400mg qam and thiamine 100mg qam. Review brain MRI report when available. For involuntary movements: Reviewed EEG: mildly abnormal due to intermittent sharp transients seen predominantly from the left temporal region. These episodes occurred while pt was on Bupropion, which can lower seizure threshold. Thus, it is likely that the Bupropion use did induce seizure activity. Pt advised to avoid using Bupropion in the future. Pt has had additional episode which appears c/w seizure activity. Continue Oxcarbazepine 300mg bid- ordered for facial pain initially. For facial pain and paresthesias: Continue oxcarbamazepine 300 mg bid. Pt aware we will need to monitor WBC and Na + levels. Continue Gabapentin 600mg tid. Check CBC and CMP. Reviewed HST- AHI 2.9/hr w/ O2 artis 82%, w/ SpO2 < 90% for 19% of the study. Results did not show sleep apnea, however does show noctural hypoxemia. Concur w/ pulmonary consult- per pt, made by PCP. For movement and RLS s/s: Previous autoimmune lab results- normal. Continue CD-LD 25-100mg 1.5 - 1 - 1.5 - 1 tab(s) For new occipital-cervical pains: Cyclobenzaprine prn. F/u w/ pain management. For chronic migraine: May have exacerbated by missing a dose of Ajovy and possibly by venlafaxine dose reduction- will monitor. Continue Ajovy Ajovy 225 mg sc q month. Continue?amitriptyline 75 mg q.h.s. Rizatripatn prn. May continue as needed Aleve or Advil at headache onset Tylenol prn at onset of stabbing headache. Previous migraine prevention trials- topiramate- caused confusion, depakote- not tolerated, tegretol/trileptal- electrolyte disturbance in setting of polypharmacy, and lisinopril- ineffective. Botox- was not tolerated and was ineffective. Migraine tx contraindications: Would avoid BBs- as pt is currently on amlodipine w/ low and on multiple medications that can induce orthostatic hypotension- such as carbidolopa-levodopa, rexulti Future considerations: indomethacin for stabbing LOPEZ. For cognition: Pt advised to have HOME HEALTH CARE COORDINATOR eval & tx for cognition and speech/word finding/swapping difficulties. Consider f/u neuro-psych eval. ? Will follow-up upon review of above and patient to follow-up in clinic in 6 months or sooner prn. Orders: Referrals Speech and Hearing Referral F09 - Unspecified mental disorder due to known physiological condition, R47.89 - Other speech disturbances Medications: New thiamine HCl (vitamin B1) 100 mg PO DAILY 30 days 30 tabs 6RF E51.9 - Thiamine deficiency, unspecified riboflavin (vitamin B2) 400 mg PO DAILY 30 days 30 tabs 6RF E53.0 - Riboflavin deficiency Coding Level of Care Code Est Pt Level 4 (12301) Complex EM visit Add On G2211 Diagnoses Cognitive dysfunction F09 Word finding difficulty R47.89 Chronic migraine without aura G43.709 Tremor R25.1 Seizure R56.9 Involuntary movements R25.9
== END 2024-09-04 12:21 | disposition home or self-care (01) ==
PROVIDERS: PCP Internal Medicine Geriatric Medicine; Visit Provider Nurse Practitioner Family
DX: R41.89 Other symptoms and signs involving cognitive functions and awareness (principal); R47.89 Other speech disturbances; G43.709 Chronic migraine without aura, not intractable, without status migrainosus; R25.1 Tremor, unspecified; R56.9 Unspecified convulsions; R25.9 Unspecified abnormal involuntary movements
CPT/HCPCS: 99214; G2211

== ENCOUNTER → 2024-09-04 11:29 | Outpatient (BNVA) | payer OTHER, SELFPAY | PROVIDERS: PCP Internal Medicine Geriatric Medicine; Visit Provider Nurse Practitioner Family | DX: G43.709 Chronic migraine without aura, not intractable, without status migrainosus (principal); F09 Unspecified mental disorder due to known physiological condition; R47.89 Other speech disturbances; R25.1 Tremor, unspecified; R56.9 Unspecified convulsions; R25.9 Unspecified abnormal involuntary movements | CPT/HCPCS: 99212 ==

== ENCOUNTER 2025-02-26 12:35 | Outpatient (RCR) | payer OTHER, SELFPAY ==
--- NOTE | 2025-03-05 08:57 | MHC.SP.ADU ---
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 Alfonso. Sharon reported a number of concerns which prompted this evaluation, including: Saying the wrong word; messy word writing; slurring; spontaneous choking on liquids and foods - throat spasms; not understanding what I say; laryngitis; comprehending fast speech. Sharon also at the beginning of this evaluation appeared to urgently want to communicate about visual hallucinations, stating that words and figures appear to move and that the floral pattern on my shirt looked like moving frogs. Her referral from Neurology and Sleep indicates ORDNANCE EQUIPMENT WORKER evaluation and therapy for cognition and speech/word finding/swapping difficulties. Sharon was advised at the top of the session of the nature of this evaluation, its limitations with regard to being a Speech screening of cognitive function for the purpose of recommending and proposing goals for cognitive therapy (and not a comprehensive, diagnostic evaluation as provided by a Neuropsychologist). However, word finding, oral mechanism & swallowing and voice were also informally assessed as a part of this evaluation, given Sharon's concerns. Notably, Sharon further presented with some unusual social/pragmatic behaviors throughout this evaluation, including eye aversion/very infrequent eye contact, and occasional episodes of slumping her head down to her chest and being still, which at least twice prompted a query if she was ok? as she appeared to be having some kind of episode (though each time she raised her head and said I'm fine ). As this behavior was very persistent, Sharon was asked if she has ever had a diagnosis of Autism Spectrum Disorder(which was not otherwise documented or reported by her on her intake form), to which she became somewhat tearful and stated I always believed that I was autistic! and reported that she was bullied in school and that her son was diagnosed with PDD. Notably, this was just a clarifying query on the part of this examiner, not, by any means, a diagnosis. With regard to the swallowing difficulty Sharon reported on her intake form, when queried about this on initial interview, she reported that she had been seen for an instrumental swallow study at [facility] at some point last year, at which she stated she was diagnosed with throat spasms, but she could not elaborate on this description or what any recommendations were following this assessment. With regard to her personal and medical history, Sharon endorsed significantly more conditions than reported by her Neurologist, which was limited to: Anemia, Overactive bladder, Alcoholism, Polyneuropathy (Sharon's additional reports are noted below in Medical History). She noted in her intake form that she has received Psychological Counselling since age 23, and reported that she currently sees a Psychiatric Nurse for remote therapy twice a month. She endorsed anxiety as a mental health issue, there are no other indications of mental health diagnoses in the report received from the Neurologists office or by her report. Sharon noted that she received her BA and noted it was from [employer] on her intake form, but when asked about this, she said she attended [employer] for two years, and then stated that she doesn't have a sense of time and couldn't report when she attended and complete her degree at [employer]. 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 She reported that she started receiving Disability and left work in 2019. She reported that she had recently moved with her to a new residence in [place], [place], having previously lived in [place], [place]. She reported that she has two adult children, but stated my daughter doesn't talk to me anymore, and that her son lives in a prison. Medical History: Acid Reflux Arthritis COPD Diabetes Emotional or Psychological Issues Hearing Loss High Blood Pressure Neurological Conditions e.g.: [place]'s, Parkinson's Thyroid Issues Other: Anxiety/Depression; Bronchitis, Migraines, Seizures, Man's Disease, Essential tremors, Nocturnal hypoxemia, Ocular migraines, Pariseptal emphysema, secondary parkinsonism, fibromyalgia Medication List: Advair, Albuterol Inhaler, Amitriptyline, Atomoxetine, Atorvastatin, Cyclobenzaprine, Emgality, Omeprazole, Flonase, Fluoxetine, Furosemide, Gabapentin, Incruse, Levothyroxine, Methylphenidate, Ox-Carbamazepine, Prolia injections, Triamterene, Vraylar, [place]/levodopa Recent Hospitalizations: Yes: Reports hospitalization in 2024 (?) Respiratory Needs: Room Air Patient Orientation: Alert & Oriented x 4 Social History: Employment Status: Unemployed/disabled Highest level of education obtained: Completed Bachelor's Current Living Situation: Lives with in a private residence in [place], [place] Assistive Devices in use: None Past Speech Language Therapy: None reported, though has swallow study at [facility] sometime last year. Other Therapies Seen in Current Calendar Year: Occupational Therapy, Physical Therapy Other: 2019 noted on form for above listed therapies Swallowing History: Dysphagia Specific: Within Functional Limits Comments: Sharon was administered a clinical or bedside swallow as a part of this overall assessment, due to reports of her having difficulty swallowing and throat spasms. Her oral mechanism evaluation was remarkable for mild right sided labial weakness, though it was also noted that she initially presented with apparent global lingual weakness, until she was very directly cued to produce expected movements and resistance against a spoon/tongue depressor, indicating some behavioral related responses to the evaluation. She has most of her natural teeth, but they appeared in poor condition. As a part of this evaluation, Sharon was given a trial of sips of water self administered from a a water bottle. She produced timely, well coordinated oral and pharyngeal phases of swallow, laryngeal elevation on swallow WFL, evident swallow trigger, with swallow judged to be WFL. Pre-eval Risk for Aspiration: Neurological Condition Pre-evaluation Dietary Consistencies: Regular Pre-eval Liquid Intake: Thin Pre-eval Medication Intake: Whole with Liquid Reported Speech, Language, Cognition difficulties: Attention Memory Comments: On evaluation today, Sharon primarily presented with moderate to severe issues related to short term memory and remote recall, as well as reporting a history of ADHD. Patient Stated Goal of Speech-Language Therapy: Assess a variety of needs related to communication and swallowing. Assessment Speech Production: Articulate Clinical Impression: Intact Observations: Speech production was not formally assessed, but observed throughout. Informal Voice Assessment: Voice Loudness: Normal Voice Nasal Resonance: Normal Voice Oral Resonance: Normal Voice Phonatory-based Quality: Normal Voice Pitch: Normal Voice Other Observations: Clinical Impression: Intact Clinicial Observations: Sharon presented as somewhat reactive/performative on this evaluation which is perceptually based and does not use instrumental assessment. Sharon was administered the Consensus Auditory Perceptual Evaluation of Voice (CAPE-V). When asked to produce a prolonged vowel sound, Sharon produced the sound at a markedly low volume, considerably lower that the volume she had been using when speaking/communicating before the voice assessment was attempted. When producing normal speech of targeted speech sounds in phonemically balanced sentences, a moderately hoarse/breathy vocal quality reduced vocal volume was noted, again very different from the vocal quality Sharon presented in the rest of this evaluation, which was not focused on voice. When asked to vary volume, Sharon produced a very quiet voice with no variability. Sharon's vocal behavior on this assessment was quite drastically different from how she presented before this voice evaluation was introduced, and she notably returned to normal voicing and volume after this testing concluded. However, it was noted when she took a moment to make a phone call to her transportation service, that Sharon held her phone away from her face, turned her head away and down from the phone, and spoke in a soft voice. The phone was on speaker, and the listener was heard stating that he could not hear or understand her. She then made no initial adjustment and repeated the behavior, with the listener again stating he could not hear or understand her. 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 She protested that if the phone is too close to her face, she might dial someone accidently. Tests of Speech & Lang Adults: BNT Clinical Impression: Intact Observations: Due to referral information and patient report, Sharon's expressive language was screened with the [place] Naming Test (Short Form) and an elicited narrative from the BDAE using the Cookie Theft picture. On the BNT, Sharon readily and rapidly named 13 of the 15 images, with no hesitations, paraphasias , word substitution ( wrong word ) or circumlocution. The two items missed were sphinx - That's in [place] but I don't know what it is called; and Palette which she stated an artist uses that, and when prompted with the context of its use, she responded with the word. On the Cookie Theft narrative, Sharon produced the equivalent of three sentences about the picture, describing the image accurately but with some general paucity of expression. No hesitiations, apart from some pauses to formulate were noted, no word substitutions or paraphasias were noted. This testing was done at the beginning of the evaluation, with Sharon demonstrating normal vocal volume and clear articulation. Tests of Cognition: Clinical Impression: Impaired Observations: RBANS The Repeatable Battery for the Assessment of Neuropsychological Status (RBANS) was used as a screening instrument to briefly assess Sharon?s cognitive skills. The RBANS-(Updated Form A) briefly assesses aspects of cognitive memory, language, and attention skills. The RBANS is considered a screening battery for cognitive function and is repeatable for the purpose of evaluating any changes in function. It is intended for use with adolescents and adults, ages 12 to 89 years. Composite domains assessed in this test are: Immediate Memory, Visuospatial/Constructional, Language, Attention, and Delayed Memory. Interpretation of test performance is based on normative data on individuals between ages 60-60. Sharon?s performance is summarized below: IMMEDIATE MEMORY: This domain assesses the individual's ability to remember information immediately after it is presented. For the ?List Learning? task, Sharon was read a list of 10 words and asked to repeat back as many words as she could. She was then read the same list four times. Initially, Sharon recalled only one word from the list, and expressed that I presented the words too quickly On subsequent trials, she consistently recalled 5 items, or half the list, with the same items from the beginning and the same from the end. She did not appear to apply any strategies to attempt to recall more and did not learn as the test progressed. On the ?Story Memory? task, a brief story is read by the examiner two times, with the subject required to repeat back as much as they remember each time. Sharon again recalled half of the details expected, and remembered exactly the same items each time the story was read, without any additions or more detail. List Learning Total Score: 15 Scaled Score: 2 Interpretation: Well below average Story Memory Total Score: 13 Scaled Score: 6 Interpretation: Well below Average Immediate Memory Index Score: 65 Percentile: 1 Interpretation: Below Average VISUOSPATIAL/CONSTRUCTIONAL: This domain assesses the individual's ability to perceive spatial relations and to construct a spatially accurate copy of a drawing. During the Figure Copy task, Sharon was given an example of a specific figure to copy onto a piece of paper. Individuals are scored on both the drawing accuracy and placement of 10 different target items. Sharon?s drawing was close to the example drawing; with a mild distortion of one element, demonstrating a high average score. Sharon demonstrated occasional visual confusion and frequent inaccuracies on the Line Orientation task, in which an individual is asked to transpose two line segments of an angle to a compass diagram above it, to label each segment.. She stated during this task Straight lines look wavy at times. Her score on this test fell in the below average range. However, these scores combined for this domain, resulted in a low average score overall. Figure Copy Total Score: 20 Scaled Score: 13 Interpretation: High Average Line Orientation Total Score: 9 Percentile Group: <2 Interpretation: below Average Visuospatial/Constructional Index Score: 89 Percentile: 23 Interpretation: Low Average LANGUAGE: This domain assesses the individual's ability to respond verbally to either naming or retrieving learned material. Sharon was asked to label various line drawings in a responsive naming task and then asked to name as many fruits and vegetables as he could in one minute in a Semantic Fluency task. Sharon accurately named 10 of 10 drawings, demonstrating an above average score., Sharon labeled 12 fruits and vegetables in one minute, which was at a well below expected rate. On this she notably tried to go in alphabetical order to name items, which was a strategy that clearly delayed her and she abandoned after the A words. Although her score was very low on the semantic fluency task, when combined with the naming task, her score fell in the borderline/low average range. Picture Naming Total Score: 10 Percentile Group: 52-75 Interpretation: Above average Semantic Fluency Total Score: 12 Scaled Score: 4 Interpretation: Below Average Language Index Score: 82 Percentile: 12 Interpretation: Borderline low average ATTENTION: This domain assesses the individual's capacity to remember and manipulate both visually and orally presented information in short-term memory storage Sharon was read aloud strings of numbers of varying lengths then asked to recall the numbers. Sharon accurately recalled strings of numbers up to 5 digits with no difficulty, but then had difficulty with 6-8 digits, overall demonstrating an average score. In the coding subtest, Sharon was asked to write numbers to their matching symbols as quickly and efficiently as possible within 90 seconds. Sharon worked carefully and accurately but very slowly through this task, marking only 11 symbols in allotted time, demonstrating a below average score. For the overall ?Attention? domain score, Sharon fell in the below average range for her age group. Digit Span Total Score: 10 Scaled Score: 10 Interpretation: Average Coding Total Score: 11 Scaled Score: 1 Interpretation: Below Average Attention Index Score: 72 Percentile: 3 Interpretation: Below Average DELAYED MEMORY: This domain assesses the individual's anterograde memory capacity. Low scores indicate difficulties with recognition and retrieval of information from long-term memory stores. Sharon recalled 4 of the ten words on the wordlist that was presented to her earlier in the testing, demonstrating a low average score on this task. When given a recognition task regarding words on the list (i.e. ?Was apple on the list??), Sharon answered these yes/no questions which appeared to aid her recall, and she demonstrated a low average score on this subtest. On recalling the story that was read to her at the beginning of the assessment, Sharon recalled 4 out of 12 gallagher details of the story read to her earlier, demonstrating a below average score on this subtest. Finally, when asked to recall the figure she rowena with relatively good accuracy at the beginning of the test, while she rowena the figure well, she was able to recall only a few of the elements of the drawing, yielding below average score. In this domain overall, Sharon demonstrated below average ability for her age group. List Recall Total Score: 4 Percentile Group: 17-25 Interpretation: Low Average List Recognition Total Score: 16 Percentile Group: 22 Interpretation: Low Average Story Recall Total Score: 4 Scaled Score: 4 Interpretation: Below Average Figure Recall Total Score: 8 Scaled Score: 5 Interpretation: Below Average Delayed Memory Index Score: 68 Percentile: 2 Interpretation: Below Average The Total Test Score on the RBANS represents a summation of the individual index scores across five cognitive domains, providing an overall measure of a person's cognitive functioning, with a higher score indicating better cognitive performance; a mean score of 100 is considered average, and a standard deviation of 15 is used to interpret the severity of any cognitive impairment based on the individual's score relative to the norm. On the total test, Sharon demonstrated a below average score overall. TOTAL TEST: Sum of Index Scores: 376 Total Scale Score: 69 Percentile: 2 Interpretation: Below Average Impressions and Recommendations Summary: Sharon Evans was referred for this evaluation by her Neurologist regarding concerns related to cognition and memory, and her report of difficulty with word finding in verbal expression. Sharon came to this evaluation with a number of other complaints that speech pathologists address, including voice and swallowing. Sharon was administered a screening battery for her cognitive skills with other complaints also screened as a part of this evaluation. Throughout, she presented with concerning behaviors that likely interfered with accurately assessing her true function. At times, and in particular during the voice assessment, Sharon notably altered her behavior in a way that appeared to be diagnosis seeking. She further demonstrated frequent social/pragmatic behaviors that interfered with her general communication. On cognitive screening testing, she demonstrated a moderate to severe impairment of memory, attention and remote recall of information, with general strengths with visual/perceptual skills. Her word finding/language formulation skills presented as WNL, her swallow, despite some unusual behaviors, presented as WNL, and her voice production, despite unusual behaviors, was judged to be WNL. As noted, Sharon's social/pragmatic skills likely at times interfere with the ability of others to hear her, and based on one observations of this conduct, she did not demonstrate the insight needed to adjust her behavior so that she was audible, and required direct cuing. Due to these observed behaviors, lack of insight, and absence of attempts of strategies or self monitoring during cognitive testing, Sharon is unlikely to benefit from cognitive therapy as offered by a Speech Language Pathologist. This intervention is mostly instructional, requiring the individual to be self reflective, and be able to learn and apply strategies. Sharon on assessment today did not appear to be a good candidate for this intervention. Given the very little information provided either from Sharon or in her referral, she does appear in need for more comprehensive management of her mental health issues, however this is based only upon behaviors noted today, which lack the context of any more specific psychiatric diagnosis. Impact on Daily Function/Activity Limitations: Daily Activities: Moderate Interpersonal Interactions: Moderate Education: Moderate Employment: Moderate Community: Moderate Prognosis for Improvement: Poor Comment: Sharon presented with a number of behavioral concerns that would likely interfere with intervention for her needs. Recommendation for Speech Therapy: Further Testing Needed Recommended Referrals to be Discussed with Primary Care Provider: Other: See Comment Sharon presents as in need of more robust psychiatric evaluation and intervention. 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
== END 2025-03-05 14:38 | disposition home or self-care (01) ==
LOC: HO.SH 12:35
PROVIDERS: PCP Internal Medicine Geriatric Medicine; Visit Provider Nurse Practitioner Family
DX: R47.89 Other speech disturbances (principal); F09 Unspecified mental disorder due to known physiological condition
CPT/HCPCS: 96125

== ENCOUNTER 2025-03-27 11:47 | Outpatient (AMB) | payer OTHER, SELFPAY ==
--- NOTE | 2025-03-27 11:38 | MHC.OFFVIS ---
Intake Visit Reasons: Follow Up 6mo Intake Note: Patient presents 6 month follow up for migraines/seizures Assistant Center Director Required: No Accompanied by: Self / Same As Patient Allergies baclofen Adverse Reaction (Unknown, Verified 03/27/25 11:38) Confusion topiramate [From Topamax] Adverse Reaction (Unknown, Verified 03/27/25 11:38) Confusion Medication List - Last Reconciled 03/27/25 by NACNI Pardo acetaminophen (Tylenol Extra Strength) 500 mg PO Q6H PRN albuterol sulfate 90 mcg/actuation inhalation amitriptyline 75 mg (1.5 x 50 mg) PO BEDTIME 30 days amlodipine 5 mg PO DAILY atorvastatin 20 mg PO DAILY carbidopa-levodopa 25-100 mg 1.5 tabs PO QID 30 days clonazepam 0.5 mg PO DAILY PRN clonidine 1 patch transdermal QWEEK cyanocobalamin (vitamin B-12) 500 mcg PO DAILY 30 days cyclobenzaprine 5 mg PO BEDTIME denosumab (Prolia) mg subcut esomeprazole magnesium (Nexium) 40 mg PO DAILY estradiol 0.5 mg PO DAILY fremanezumab-vfrm (Ajovy) 225 mg (1.5 mL) subcut ONCE 30 days furosemide 20 mg PO DAILY gabapentin 600 mg PO TID 30 days galcanezumab-gnlm (Emgality Pen) 120 mg subcut ONCE 30 days levothyroxine 88 mcg PO DAILY levothyroxine 88 mcg PO DAILY losartan 25 mg PO DAILY lurasidone 120 mg PO DAILY lurasidone (Latuda) 40 mg PO DAILY medroxyprogesterone 2.5 mg PO DAILY methylphenidate HCl ER 54 mg PO DAILY onabotulinumtoxinA (Botox) 200 units IM ONCE 12 weeks oxcarbazepine (Trileptal) 300 mg (2 x 150 mg) PO BID 30 days riboflavin (vitamin B2) 400 mg PO DAILY 30 days rizatriptan 5 - 10 mg (0.5 - 1 x 10 mg) PO Q2H PRN 21 days thiamine HCl (vitamin B1) 100 mg PO DAILY 30 days triamterene-hydrochlorothiazid 37.5-25 mg 1 cap PO DAILY venlafaxine ER 37.5 mg PO DAILY venlafaxine ER 75 mg PO DAILY [Vitamin D + K 650/12.5mcg PO DAILY] HPI Comments Details: 54-yr-old female presents for f/u visit of tremor, cognition, migraine, and seizure. She had a month long in-pt medical/psychiatric hospitalization from [facility] to [place]. She notes she is still prone to some paranoia and is hesitant to leave the house. She would like to revisit having in-lab sleep study, as she is very sleepy during the day- sometimes wonders if somebody is putting something in her tea, or maybe she is, but then she is not sure. She wonders if he has diffuse Lewy body dementia- recently saw a film regarding Brad Clements. She is still working closely w/ her psychiatrist and therapist- and has signed consent for us to speak w/ her. Pt has reported she is continuing to have cognitive difficulties. Making medication mistakes while filling her med box- does not help w/ this. Pt underwent MOLD CUTTING MACHINE OPERATOR eval- who did not feel that pt required MOLD CUTTING MACHINE OPERATOR services. Thus, we referred pt for OT cognitive tx. She did start the vitamin B12 and D supplements, her she thinks that this was not resumed after her hospitalization. [facility] has authorized pt to have a patient advocate attend her medical appointments. Tremor is stable. States somebody told her that her dose of carbidopa levodopa is quite low. Continues to have difficulty with balance. However, has moved, so now has more ability to move freely. Has difficulty initiating turning to the left. No falls. Is hoping to try a new home PT. She states her headaches are more like tension headaches. Ajovy was switched Emgality d/t insurance preference, pt reports it is as effective as Ajovy. Continues to have > 30% in monthly migraine days since starting anti-CGRP MaB tx. She did start Oxcarbazapine. Recent serum Na level was normal. She saw a spine clinic for neck pain and was offered trigger point injections- she is considering. She has had one other gadiel vu episode since the fall. In Nov, she had one episode of full body shaking. She is compliant w/ oxcarbazapine. Previous seizure hx: In December 2023 pt reported episode of full body shakes with arms and legs all involved. which only lasted a moment. This was similar to a full body tics she started noticing last fall, but had worsened since started and then increased wellbutrin (started in Jul, used for smoking cessation). She had 15 episodes in Nov- lasting moments. January 2024 EEG was suggestive of seizure activity. She had 15 episodes in Jul 2023. She denies being able to suppress the episode, has no warning. Usually happens if very tired. Does not feel she could talk during the episode, but has not been witnessed. She has episodes of spacing out and being disassociating. She is not sure if this happens w/ the tic like episodes. Had 13 episodes in November- and none since she stopped Wellbutrin. She has not had any episodes since stopping Wellbutrin a week or 2 ago. Her son has been dx'd w/ absence seizures. Pt does not drive. Previous work-up: 01/30/24, IMPRESSION: This EEG is considered mildly abnormal due to intermittent sharp transients seen predominantly from the left temporal region, which could correlate with the seizure focusing the left temporal region. Clinical correlation is suggested. Note pt had not held Gabapentin prior to EEG. 10/23/2023, HST showed AHI 2.9/hr w/ O2 artis 82%, w/ SpO2 < 90% for 19% of the study. She was advised to undergo f/u in-lab PSG, which she was unable to do as her PT-1 request was denied. Pt denies dx of COPD or asthma. Believes her PCP has recently referred her for pulmonology consult. [facility] Medical History (Updated 02/21/25 @ 16:42 by NANCI Pardo) Anemia Overactive bladder Alcoholism Polyneuropathy Family History Mother Thyroid disease CHF (congestive heart failure) Afib PAD (peripheral artery disease) Maternal Grandfather HTN (hypertension) Paternal Grandmother Cancer Daughter No problems noted. Social History Alcohol intake: current Alcohol intake frequency: holidays/special occasions only Patient Tobacco Use Status: Current someday Tobacco user Cigarettes Per Day: 10 Years Smoked: 20 Substance Use Type: Marijuana Physical Exam Const General: cooperative and no acute distress Orientation/consciousness: patient oriented x3 Resp Effort & Inspection: normal respiratory effort and able to speak in complete sentences Neuro General: patient oriented x3 Cognition (Neuro): normal cognition Psych Appearance: grossly normal Mental Status: mental status grossly normal Speech and movement: Normal speech and movement present Affect: normal affect Attitude: cooperative Telehealth Telehealth Telehealth Platform: JournalDoc Location of provider rendering services: practice address Location of patient: address on file Patient Identification confirmed using: Name, : Yes Telehealth method: video Patient verbally consented to treatment: Yes Patient verbally consented to billing insurance company: Yes Patient informed of any privacy concerns related to visit: Yes Minutes spent on Phone/Video with Pt.: 26 Assessment & Plan Assessment & Plan (1) Cognitive dysfunction: Code(s): F09 - Unspecified mental disorder due to known physiological condition Category: Medical (2) Word finding difficulty: Code(s): R47.89 - Other speech disturbances Category: Medical (3) Chronic migraine without aura: Code(s): G43.709 - Chronic migraine without aura, not intractable, without status migrainosus Category: Medical (4) Tremor: Comment: ? chronic neuroleptic exposure. 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 Code(s): R25.1 - Tremor, unspecified Category: Medical (5) Seizure: Comment: Episodes of involuntary movements- Likely induced by Bupropion use. Code(s): R56.9 - Unspecified convulsions Category: Medical (6) Involuntary movements: Code(s): R25.9 - Unspecified abnormal involuntary movements Category: Medical (7) Snoring: Code(s): R06.83 - Snoring Category: Medical (8) Excessive daytime sleepiness: Comment: ESS 15 Code(s): G47.19 - Other hypersomnia Category: Medical (9) Sleep difficulties: Code(s): G47.9 - Sleep disorder, unspecified Category: Medical Plan For cognition difficulties: Reviewed 08/10/2024, Brain MRI w/o: Minimal nonspecific white matter changes most commonly seen with mild underlying microangiopathy. Reviewed MOLD CUTTING MACHINE OPERATOR evaluation- respectfully disagree that patient does not have insight or capacity to benefit from structured cognitive therapy program. OT eval and treat as order- for cognitive difficulties. Check follow-up labs as ordered. Upon review, consider resuming vitamin-D and vitamin B12 supplements. Future considerations: Trial of Namenda- which may help headaches as well. For involuntary movements: Reviewed EEG: mildly abnormal due to intermittent sharp transients seen predominantly from the left temporal region. These episodes occurred while pt was on Bupropion, which can lower seizure threshold. Thus, it is likely that the Bupropion use did induce seizure activity. Pt advised to avoid using Bupropion in the future. Pt has had additional episode which appears c/w seizure activity. Continue Oxcarbazepine 300mg bid- ordered for facial pain initially. For facial pain and paresthesias: Continue oxcarbamazepine 300 mg bid. Pt aware we will need to monitor WBC and Na + levels. Continue Gabapentin 600mg tid. Check CBC and CMP. For sleep difficulties: Previous HST- AHI 2.9/hr w/ O2 artis 82%, w/ SpO2 < 90% for 19% of the study. 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 Previous autoimmune lab results- normal. Continue CD-LD 25-100mg 1.5 - 1 - 1.5 - 1 tab(s)- would not increase further due to risk for inducing hallucinations. For new occipital-cervical pains: Cyclobenzaprine prn. F/u w/ pain management. As scheduled. For chronic migraine: May have exacerbated by missing a dose of Ajovy and possibly by venlafaxine dose reduction- will monitor. Continue Emgality 120 mg subQ monthly. Continue?amitriptyline 75 mg q.h.s.- could consider reducing this future, as this may be negatively impacting mood and cognition. Continue rizatriptan as needed. Continue as needed Aleve or Advil at headache onset Tylenol prn at onset of stabbing headache. Previous migraine prevention trials- topiramate- caused confusion, depakote- not tolerated, tegretol/trileptal- electrolyte disturbance in setting of polypharmacy, and lisinopril- ineffective. Botox- was not tolerated and was ineffective. Migraine tx contraindications: Would avoid BBs- as pt is currently on amlodipine w/ low and on multiple medications that can induce orthostatic hypotension- such as carbidolopa-levodopa, rexulti Future considerations: indomethacin for stabbing LOPEZ. ?Will follow-up upon review of above and patient to follow-up in clinic in 6 months or sooner prn. Orders: Orders RT PSG in-lab sleep titration Today G47.19 - Other hypersomnia, G47.9 - Sleep disorder, unspecified, R06.83 - Snoring Coding Level of Care Code Tele Est Pt Level 4 (05512) Complex EM visit Add On G2211 Diagnoses Cognitive dysfunction F09 Word finding difficulty R47.89 Chronic migraine without aura G43.709 Tremor R25.1 Seizure R56.9 Involuntary movements R25.9 Snoring R06.83 Excessive daytime sleepiness G47.19 Sleep difficulties G47.9
--- OUTSIDE RECORDS SUMMARY | 2025-03-27 12:50 | XMS_ITS ---
Author Organization [facility] Address [address] [place] [address] Care Team Providers Care Bench Carpenter Name Role Phone Charlene Angulo Primary Care Provider Noah Palomares Unavailable [phone] Encounters En[facility] Date [facility] [address] [facility] Noah Obregon Plan Of Treatment No Information Progress Notes * Susy CRANEOB:1970 (54 yo F)Acc No.[id number]:10/30/2024 Progress Note Patient:?Sharon CRANE Provider:?Noah Obregon DPM :1970???Age:54 Y???Sex:Female D ate:10/30/2024 Address:[address] [place], [place] [id number] Pcp:Charlene Angulo Subjective: * Chief Complaints: * ??? * Medical History:? Objective: * Vitals:? Assessment: Plan: * Treatment: * Images: * The named appointment provid er may or may not be the originator of this progress note, and it is not deemed complete until electronically signed by the appointment provider. Sign off status: Pending * Provider:?Noah Obregon DPM Date:?2023 Generated for Printi ng/Faxing/eTransmitting on:?03/27/2025 12:50 PM EDT
--- OUTSIDE RECORDS SUMMARY | 2025-03-27 12:50 | XMS_ITS | Clinical Summary ---
Author Organization [facility] Address [address] [place] [address] Care Team Providers Care Architecture Instructor Name Role Phone Unavailable Primary Care Provider Unavailabl e Allergies No known active allergies Medications Medication Sig Dispensed Refills Start Date End Date Status methylphenidate (CONCERTA) 36 MG CR tablet Take 72 mg by mouth every morning. 0 Active gabapentin (NEURONTIN) 800 MG tablet Take 800 mg by mouth 3 (three) times a day. 0 Active tiZANidine (ZANAFLEX) 4 MG tablet Take 4 mg by mouth continuous prn. 0 Active sulindac (CLINORIL) 150 MG tablet Take 150 mg by mouth 2 (two) times a day. 0 Active FLUoxetine (PROzac) 20 MG capsule Take 20 mg by mouth daily. 0 Active solifenacin (VESICARE) 10 MG tablet Take 10 mg by mouth daily. 0 Active norethindrone (ALFREDO-BE) 0.35 MG tablet Take 1 tablet by mouth daily. 0 Active Ziprasidone HCl (GEODON PO) Take 120 mg by mouth. 0 Active lisinopril (PRINIVIL,ZESTRIL) tablet 5 mg Take 5 mg by mouth daily. 0 Active carBAMazepine (TEGretol) 200 MG tablet Take 200 mg by mouth 3 (three) times a day. 0 Active hydrOXYzine (ATARAX) 10 MG tablet Take 10 mg by mouth daily. 0 Active cyproheptadine (PERIACTIN) 4 MG tablet Take 4 mg by mouth. 0 Activ e DULoxetine (CYMBALTA) DR capsule 60 mg Take 60 mg by mouth daily. 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 Hemangioma of liver 07/03/2020 Tobacco use 07/03/2020 Polycythemia vera 06/04/2020 Social History Tobacco Use Types Packs/Day Years Used Date Smoking Tobacco: Every Day Smokeless Tobacco: Never Alcohol Use Standard Drinks/Week Comments Yes 12 (1 standard drink = 0.6 oz pu re alcohol) Sex and Gender Information Value Date Recorded Sex Assigned at Not on file Gender Identity Not on file Sexual Orientation Not on file Job Start Date Occupation Industry Not on file Not on file Not on file Last Filed Vital Signs Vital Sign Reading Time Taken Comments Blood Pressure 146/69 07/03/2020 3:29 PM EDT Pulse 102 07/03/2020 3:29 PM EDT Temperature 36.3 ??C (97.3 ??F) 07/03/2020 3:29 PM ED T Respiratory Rate - - Oxygen Saturation - - Inhaled Oxygen Concentration - - Weight 76.2 kg (168 lb) 07/03/2020 3:29 PM EDT Height 160 cm (5' 3 ) 07/03/2020 3:29 PM EDT Body Mass Index 29.76 07/03/2020 3:29 PM EDT Plan of Treatment Health Maintenance Due Date Last Done Comments Hepatitis B Vaccines (1 of 3 - 3-dose series) 1970 Hepatitis C Screening 1970 COVID-19 Vaccine (#1) 1975 Pneumococcal Vaccine (1 of 2 - PCV) 1976 Depression Screening 1982 Preventative Health Evaluation 1988 Shingrix-Zoster Vaccine (1 of 2) 1989 Cervical Cancer Screening (Pap Smear) 1991 Colon Cancer Screening (Colonoscopy) 2015 Breast Cancer Screening (Mammogram) 2020 Influenza Vaccine (#1) 2024 , 01/14/2019, 08/31/2017, Additional history exists DTap / Tdap / Td (3 - Td or Tdap) 11/24/2025 11/24/2015, 08/15/2011 RSV Ped < 20 months Aged Out No longe r eligible based on patient's age to complete this topic
--- OUTSIDE RECORDS SUMMARY | 2025-03-27 12:50 | XMS_ITS | Encounter Summary ---
Author Organization [facility] Address [address] [facility] [address] [place] [address] Phone Care Team Providers Care Commissioned Sales Associate Name Role Phone Charlene Angulo MD Primary Care Provid er Encounter Details Date Type Department Care Team (Late st Contact Info) Description 03/26/2025 Telephone [facility] Rheumatology [address] [place] [address] Julia Manuel CMA [address] [place] [address] Social History Tobacco Use Types Packs/Day Years Used Date Smoking Tobacco: Every Day Cigarettes 1.3 39.4 Started: 1985 Passive Smoke Exposure: Current Smokeless Tobacco: Never Alcohol Use Standard Drinks/Week Comments Yes 0 (1 standard drink = 0.6 oz pur e alcohol) 3-4 drinks per month Education Answer Date Recorded Are you interested in more education? Not on rebeca e 03/11/2023 Are you concerned about learning? Not on file 03/11/2023 No 03/11/2023 No 03/11/2023 Digital Access Answer Date Recorded No 04/04/2023 No 04/04/2023 Reliable internet access at home? Not on file 04/04/2023 Device with a working camera? Not on file Comments Unknown Sex and Gender Information Value Date Recorded Sex Assigned at Not on file Legal Sex Female 4:12 PM EST Gender Identity Not on file Sexual Orientation Not on file documented as of this encounter Progress Notes * Julia Manuel CMA - 03/26/2025 1:23 PM EDT Needs lab orders for Prolia appt I spoke with patient she will have these done same day of appt just prior documented in this encounter Plan of Treatment Upcoming Encounters Date Type Department Care Team (Late st Contact Info) Description 03/28/2025 1:00 PM EDT Office Visit [facility] Rheumatology [address] [place] [address] Mandi Mcdonnell MD [address] [facility] [facility] [address], [address] [place] [address] [email or web address] 09/22/2025 11:40 AM EST Office Visit [facility] Endocrinology [address] [address] Marilin Arcos MD [address] [place] [address] [address] [place] [address] [email or web address] Scheduled Orders Name Type Priority Associated Diagnoses Orde r Schedule Comprehensive metabolic panel Lab Routine Age-related osteoporosis without current pathological fracture Expected: 03/26/2025, Expires: 03/26/2026 documented as of this encounter Visit Diagnoses Diagnosis Age-related osteoporosis without current pathological fracture- Primary documented in this encounter Care Teams Commissioned Sales Associate Relationship Specialty Start Date End Date Charlene Angulo MD [address] [place] [address] PCP - General Geriatric Psychiatry 10/29/21 documented as of this encounter Additional Source Comments The information contained in this document represents components of the legal health record. It is not the complete legal health record.[facility]
--- OUTSIDE RECORDS SUMMARY | 2025-03-27 12:50 | XMS_ITS | Clinical Summary ---
Author Organization [facility] Address [facility] [employer] [address] [address] Phone Care Team Providers Care Court Stenographer Name Role Phone Charlene Angulo MD Primary Care Provid er Allergies Active Allergy Reactions Criticality Noted Date Comments Baclofen 04/04/2022 Iodine Itching 06/13/2024 Milk 04/13/2021 powdered Oxcarbazepine 08/20/2021 Other reaction(s): mental confusion, slurred speech Prednisone 07/01/2024 Mood swings Ropinirole 06/09/2022 Topiramate 04/04/2022 Medications AJOVY SYRINGE 225 mg/1.5 mL subcutaneous syringe Inject 1.5 mL under the skin every 28 days. 02/10/20 22 Active METHYLPHENIDATE HCL ORAL Take 36 mg by mouth every morning. 02/13/20 22 Active carbidopa-levodo pa (SINEMET) 25-100 mg per tablet 1 tab 3 times a day,and 1 1/2 once a day 05/23/20 22 Active lidocaine (LIDODERM) 5 % Place 1 patch onto the skin daily as needed. 10/26/20 21 Active calcium carb/vit D3/minerals (CALCIUM-VITAMIN D ORAL)Indications :1100 mg a day of calcium Take 1 capsule by mouth 3 (three) times a day. Contains 500 IU Vit D Indications: 1100 mg a day of calcium Active gabapentin (NEURONTIN) 600 MG tablet Take 600 mg by mouth 3 (three) times a day. 12/20/19 23 Active atorvastatin (LIPITOR) 20 MG tablet Take 1 tablet by mouth daily. 07/31/20 22 Active cholecalciferol (VITAMIN D3) 4,000 unit tablet Take 1 capsule by mouth. Unsure strength Active clonazePAM (KLONOPIN) 0.5 MG tablet Take 0.5 mg by mouth 2 (two) times a day as needed for anxiety. 03/01/20 23 Active venlafaxine (EFFEXOR) 37.5 MG tablet Take 37.5 mg by mouth daily. Active esomeprazole (NEXIUM) 40 MG capsule Take 40 mg by mouth daily before breakfast. Active furosemide (LASIX) 20 MG tablet Take 20 mg by mouth daily. Active albuterol 90 mcg/actuation inhaler INHALE 2 PUFFS EVERY 6 HOURS NEEDED FOR WHEEZING AND SHORTNESS OF BREATH 08/12/20 23 Active rizatriptan (MAXALT) 10 MG tablet TAKE 1/2 TO 1 TABLET EVERY 2 HRS NEEDED FOR MIGRAINE MAX 2 TABLETS /DAY OR 4 TABLETS PER WEEK 09/04/20 23 Active triamterene-hydr oCHLOROthiazide (DYAZIDE) 37.5-25 mg per capsule Take 1 capsule by mouth every morning. 09/02/20 23 Active amitriptyline (ELAVIL) 75 MG tablet Take 100 mg by mouth nightly at bedtime. 08/26/20 22 Active sodium chloride (OCEAN) 0.65 % nasal spray 2 sprays by Nasal route 4 (four) times a day. AYR PRN 02/17/20 23 Active acetaminophen (TYLENOL EXTRA STRENGTH) 500 MG tablet Take 1,000 mg by mouth 2 (two) times a day as needed. 02/17/20 23 Active lurasidone (LATUDA) 40 mg tablet Take 1 tablet by mouth daily. 09/26/20 23 Active cloNIDine HCL (CATAPRES) 0.1 MG tablet Take 0.1-0.2 mg by mouth nightly at bedtime as needed. Active cyclobenzaprine (FLEXERIL) 5 MG tablet Take 5 mg by mouth 3 (three) times a day as needed. Active OXcarbazepine (TRILEPTAL) 150 MG tablet Take 1 tablet by mouth 2 (two) times a day. 03/07/20 24 Active denosumab (PROLIA) 60 mg/mL Syrg subcutaneous syringeIndicatio ns:postmenopausa l osteoporosis and high fracture risk Inject 1 mL (60 mg total) under the skin every 6 (six) months. PLEASE SEND TO MD OFFICE Approval from insurance Valid until 02/23/2024 auth # [id number] Indications: osteoporosis in postmenopausal woman at high risk for fracture 1 mL 1 08/20/20 24 Active riboflavin, vitamin B2, (RIBOFLAVIN ORAL) Take 400 mg by mouth daily. Active thiamine (VITAMIN B-1) 100 MG tablet Take 100 mg by mouth daily. Active cariprazine HCl (VRAYLAR ORAL) Take 5 mg by mouth. 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 102 tablet 1 03/03/20 25 Active levothyroxine (SYNTHROID, LEVOTHROID) 88 MCG tablet 1 tablet, orally six days/week, 2 tablets on the 7th day, or as directed. 03/12/20 24 025 Discontin ued(Reord er) Active Problems Problem Noted Date Diagnosed Date Myalgia 07/01/2024 Assessment & Plan (07/02/2024 4:25 PM EDT): Use warm packs versus warm shower prior to gentle stretching and massage with muscle strengthening exercises as tolerated. Keep well-hydrated and follow well-balanced nutritionally diet rich in electrolytes, vitamins, micro and ultra elements. Class 2 severe obesity due t o excess calories with serious comorbidity and body mass index (BMI) of 36.0 to 36.9 in adult 06/13/2024 Assessment & Plan (07/02/2024 4:24 PM EDT): Congratulations on losing 1 pound from 220 on 06/13/2024 down to 219 today and keep it off. Continue diligent portion control. Limit concentrated sugars, saturated fats and calories in the diet. Keep well-hydrated. If unable to achieve expected goal consider formal dietary/nutritional support. Assessment & Plan (06/23/2024 12:16 PM EDT): Congratulations on losing 5 pounds from 225 on 03/20/2024 down to 220 today and keep it off. Continue diligent portion control. Limit concentrated sugars, saturated fats and calories in the diet. Keep well-hydrated. If unable to achieve expected goal consider formal dietary/nutritional support. Encounter for monitoring denosumab therapy 09/18 Assessment & Plan (07/01/2024 4:06 PM EDT): I reviewed with her need for monitoring for side effects and clarifying that short lasting changes in her status do not represent side effects from Prolia injection I reminded her to get chemistry profile within 30 days prior to every 6 months subcutaneous Prolia injections-standing orders in [facility]. Assessment & Plan (06/13/2024 11:54 AM EDT): I reviewed with her need for monitoring for side effects and clarifying that short lasting changes in her status do not represent side effects from Prolia injection I reminded her to get chemistry profile within 30 days prior to every 6 months subcutaneous Prolia injections-standing orders in epic. Assessment & Plan (03/20/2024 1:10 PM EDT): I reviewed with her need for monitoring for side effects and clarifying that short lasting changes in her status do not represent side effects from Prolia injection I reminded her to get chemistry profile within 30 days prior to every 6 months subcutaneous Prolia injections-standing orders in epic. Assessment & Plan (09/19/2023 10:13 AM EST): I reviewed with her need for monitoring for side effects and clarifying that short lasting changes in her status do not represent side effects from Prolia injection I reminded her to get chemistry profile within 30 days prior to every 6 months subcutaneous Prolia injections-standing orders in epic. NSAID long-term use 03/16/2023 Assessment & Plan (03/20/2024 1:09 PM EDT): Take the lowest dose, with least frequency, for shortest time. Remember to take it always with food. Favor topical over oral preparations. Assessment & Plan (09/18/2023 1:49 PM EST): Take the lowest dose, with least frequency, for shortest time. Remember to take it always with food. Favor topical over oral preparations. Assessment & Plan (03/16/2023 4:08 PM EDT): Take the lowest dose, with least frequency, for shortest time. Remember to take it always with food. Favor topical over oral preparations. Primary osteoarthritis involving multiple joints 01/05/2023 Assessment & Plan (07/01/2024 4:05 PM EDT): Joint protection, energy conservation. Gentle, regular exercise routine under supervision of PT followed by home exercise program afterwards as daily extension. Avoid falls, injuries, overuse. Keep body weight in ideal range for her height. She may benefit from topical cream such as Arnica, Biofreeze, Aspercreme versus medicated patches such as salonpas, icy hot patch 2-3 times daily and if necessary at bedtime x 3 weeks. Should above measures fail to provide adequate relief consideration for local steroid injection. Assessment & Plan (06/23/2024 12:13 PM EDT): Joint protection, energy conservation. Gentle, regular exercise routine under supervision of PT followed by home exercise program afterwards as daily extension. Avoid falls, injuries, overuse. Keep body weight in ideal range for her height. She may benefit from topical cream such as Arnica, Biofreeze, Aspercreme versus medicated patches such as salonpas, icy hot patch 2-3 times daily and if necessary at bedtime x 3 weeks. Should above measures fail to provide adequate relief consideration for local steroid injection. Assessment & Plan (03/20/2024 1:07 PM EDT): Joint protection, energy conservation. Gentle, regular exercise routine under supervision of PT followed by home exercise program afterwards as daily extension. Avoid falls, injuries, overuse. Keep body weight in ideal range for her height. She may benefit from topical cream such as Arnica, Biofreeze, Aspercreme versus medicated patches such as salonpas, icy hot patch 2-3 times daily and if necessary at bedtime x 3 weeks. Should above measures fail to provide adequate relief consideration for local steroid injection. Assessment & Plan (09/18/2023 1:48 PM EST): Joint protection, energy conservation. Gentle, regular exercise routine under supervision of PT followed by home exercise program afterwards as daily extension. Avoid falls, injuries, overuse. Keep body weight in ideal range for her height. She may benefit from topical cream such as Arnica, Biofreeze, Aspercreme versus medicated patches such as salonpas, icy hot patch 2-3 times daily and if necessary at bedtime x 3 weeks. Should above measures fail to provide adequate relief consideration for local steroid injection. Assessment & Plan (03/16/2023 4:07 PM EDT): Joint protection, energy conservation. Gentle, regular exercise routine under supervision of PT followed by home exercise program afterwards as daily extension. Avoid falls, injuries, overuse. Keep body weight in ideal range for her height. She may benefit from topical cream such as Arnica, Biofreeze, Aspercreme versus medicated patches such as salonpas, icy hot patch 2-3 times daily and if necessary at bedtime x 3 weeks. Should above measures fail to provide adequate relief consideration for local steroid injection. Assessment & Plan (01/14/2023 8:54 PM EST): Joint protection, energy conservation. Gentle, regular exercise routine under supervision of PT followed by home exercise program afterwards as daily extension. Avoid falls, injuries, overuse. Keep body weight in ideal range for her height. She may benefit from topical cream such as Arnica, Biofreeze, Aspercreme versus medicated patches such as salonpas, icy hot patch 2-3 times daily and if necessary at bedtime x 3 weeks. Should above measures fail to provide adequate relief consideration for local steroid injection. Vitamin D insufficiency 08/12/2022 Assessment & Plan (09/09/2024 5:26 PM EDT): Vitamin D normal on current rx. Assessment & Plan (03/12/2024 3:30 PM EDT): Vitamin D normal on current rx. Assessment & Plan (01/05/2023 3:34 PM EST): Serum level requested to make sure that she does not require adjustment in supplementation to keep it in an optimal range: 40-45 ng/ml. Assessment & Plan (09/01/2022 11:46 AM EDT): Serum level requested to make sure that she does not require adjustment in supplementation to keep it in an optimal range: 40-45 ng/ml. Hip pain, acute, left 06/09/2022 Arthralgia of multiple sites 04/06/2022 Assessment & Plan (07/01/2024 4:05 PM EDT): We discussed the diagnosis of fibromyalgia, its natural history, and treatment. Specifically, we discussed that treatment requires many interventions and recognition that we are often unable to get patients completely pain free. Management of fibromyalgia requires patient engagement to address any underlying depression, anxiety, or sleep disorder. Further, patients are encouraged to engage in regular physical activity. Some studies have suggested that Ricky Chi is effective. Other physical activity may including water-based aerobics, walking, biking, swimming, gentle yoga, Pilates etc. In terms of pharmacotherapy, there are many options, including tricyclic antidepressants, duloxetine, gabapentin or pregabalin, and cyclobenzaprine as well as other similar medications to those listed. In this case, the patient might try continue current regimen that includes Lyrica + gabapentin + amitriptyline. I provided her with pamphlet on fibromyalgia that lists useful website and literature resources. She would benefit from learning about mindfulness approach as described in book written by Dr Jean-Claude Hernández [employer] [facility] Joint protection, energy conservation. Gentle, regular exercise routine. Avoid falls, injuries, overuse. Work on bringing her body weight as close as possible to ideal range for her height. She may benefit from topical cream such as Arnica, Biofreeze, Aspercreme versus medicated patches such as salonpas, icy hot patch 2-3 times daily and if necessary at bedtime x 3 weeks. Additional benefit may be achieved from gentle, regular warm pool therapy such as at [employer] in [place] versus [employer] in [place] versus local [facility] or health club. Assessment & Plan (06/13/2024 11:53 AM EDT): We discussed the diagnosis of fibromyalgia, its natural history, and treatment. Specifically, we discussed that treatment requires many interventions and recognition that we are often unable to get patients completely pain free. Management of fibromyalgia requires patient engagement to address any underlying depression, anxiety, or sleep disorder. Further, patients are encouraged to engage in regular physical activity. Some studies have suggested that Ricky Chi is effective. Other physical activity may including water-based aerobics, walking, biking, swimming, gentle yoga, Pilates etc. In terms of pharmacotherapy, there are many options, including tricyclic antidepressants, duloxetine, gabapentin or pregabalin, and cyclobenzaprine as well as other similar medications to those listed. In this case, the patient might try continue current regimen that includes Lyrica + gabapentin + amitriptyline. I provided her with pamphlet on fibromyalgia that lists useful website and literature resources. She would benefit from learning about mindfulness approach as described in book written by Dr Jean-Claude Hernández [employer] [facility] Joint protection, energy conservation. Gentle, regular exercise routine. Avoid falls, injuries, overuse. Work on bringing her body weight as close as possible to ideal range for her height. She may benefit from topical cream such as Arnica, Biofreeze, Aspercreme versus medicated patches such as salonpas, icy hot patch 2-3 times daily and if necessary at bedtime x 3 weeks. Additional benefit may be achieved from gentle, regular warm pool therapy such as at [employer] in [place] versus [employer] in [place] versus local [facility] or health club. Assessment & Plan (06/09/2022 10:28 AM EDT): We discussed the diagnosis of fibromyalgia, its natural history, and treatment. Specifically, we discussed that treatment requires many interventions and recognition that we are often unable to get patients completely pain free. Management of fibromyalgia requires patient engagement to address any underlying depression, anxiety, or sleep disorder. Further, patients are encouraged to engage in regular physical activity. Some studies have suggested that Rikcy Chi is effective. Other physical activity may including water-based aerobics, walking, biking, swimming, gentle yoga, Pilates etc. In terms of pharmacotherapy, there are many options, including tricyclic antidepressants, duloxetine, gabapentin or pregabalin, and cyclobenzaprine as well as other similar medications to those listed. In this case, the patient might try continue current regimen that includes Lyrica + gabapentin + amitriptyline. I provided her with pamphlet on fibromyalgia that lists useful website and literature resources. She would benefit from learning about mindfulness approach as described in book written by Dr Jean-Claude Hernández [employer] [facility] Joint protection, energy conservation. Gentle, regular exercise routine. Avoid falls, injuries, overuse. Work on bringing her body weight as close as possible to ideal range for her height. She may benefit from topical cream such as Arnica, Biofreeze, Aspercreme versus medicated patches such as salonpas, icy hot patch 2-3 times daily and if necessary at bedtime x 3 weeks. Additional benefit may be achieved from gentle, regular warm pool therapy such as at [employer] in [place] versus [employer] in [place] versus local [place] or health club. Assessment & Plan (04/09/2022 10:49 AM EDT): We discussed the diagnosis of fibromyalgia, its natural history, and treatment. Specifically, we discussed that treatment requires many interventions and recognition that we are often unable to get patients completely pain free. Management of fibromyalgia requires patient engagement to address any underlying depression, anxiety, or sleep disorder. Further, patients are encouraged to engage in regular physical activity. Some studies have suggested that Ricky Chi is effective. Other physical activity may including water-based aerobics, walking, biking, swimming, gentle yoga, Pilates etc. In terms of pharmacotherapy, there are many options, including tricyclic antidepressants, duloxetine, gabapentin or pregabalin, and cyclobenzaprine as well as other similar medications to those listed. In this case, the patient might try continue current regimen that includes Lyrica + gabapentin + amitriptyline. I provided her with pamphlet on fibromyalgia that lists useful website and literature resources. She would benefit from learning about mindfulness approach as described in book written by Dr Jean-Claude Hernández [employer] [facility] Joint protection, energy conservation. Gentle, regular exercise routine. Avoid falls, injuries, overuse. Work on bringing her body weight as close as possible to ideal range for her height. She may benefit from topical cream such as Arnica, Biofreeze, Aspercreme versus medicated patches such as salonpas, icy hot patch 2-3 times daily and if necessary at bedtime x 3 weeks. Additional benefit may be achieved from gentle, regular warm pool therapy such as at [employer] in [place] versus [employer] in [place] versus local [facility] or health club. Chronic fatigue 04/06/2022 Assessment & Plan (04/09/2022 10:40 AM EDT): Balance rest and activity. Sleep hygiene. Proper hydration. Gentle, regular exercise routine gradually building up strength and endurance. Avoid falls, injuries, overuse, sick contacts. Follow age-appropriate screenings and preventive strategies. Keep engaged in regular hobbies/favorite activities. Regular meditation/relaxation sessions. Chronic nonintractable headache 04/06/2022 Assessment & Plan (04/09/2022 10:40 AM EDT): Proper hydration. Sufficient sleep. Avoid known triggers. Keep diary of headaches and modifying factors to review with treating neurologist and adjust therapeutic strategy as necessary. Age-related osteoporosis wit hout current pathological fracture 04/06/2022 Assessment & Plan (03/03/2025 4:42 PM EDT): Managed by rheumatology. Assessment & Plan (09/09/2024 5:26 PM EDT): Managed by rheumatology. Assessment & Plan (07/01/2024 4:06 PM EDT): According to her report she started Fosamax in October 2021. Most recent BMD from 11/03/2023 at [facility] revealed ongoing osteoporosis in lumbar spine: T score -4.0 see details in media section of epic. Since she reported increased bone pain while on the Fosamax she was switched to: Prolia (denosumab) administered subcutaneously every 6 months. 1st Prolia dose injected on 03/16/2023 Importance of proper calcium vitamin D supplementation and daily weightbearing exercises stressed and strongly encouraged. Deletorious effect of chronic cigarette smoking on bone density explained and encouraged to focus on complete smoking cessation. She received her 3rd subcutaneous every 6 months Prolia dose on 03/20/2024. Assessment & Plan (06/23/2024 12:15 PM EDT): According to her report she started Fosamax in October 2021. Most recent BMD from 11/03/2023 at [facility] revealed ongoing osteoporosis in lumbar spine: T score -4.0 see details in media section of epic. Since she reported increased bone pain while on the Fosamax she was switched to: Prolia (denosumab) administered subcutaneously every 6 months. 1st Prolia dose injected on 03/16/2023 Importance of proper calcium vitamin D supplementation and daily weightbearing exercises stressed and strongly encouraged. Deletorious effect of chronic cigarette smoking on bone density explained and encouraged to focus on complete smoking cessation. She received her 3rd subcutaneous every 6 months Prolia dose on 03/20/2024. Assessment & Plan (03/24/2024 11:42 AM EDT): According to her report she started Fosamax in October 2021. Most recent BMD from 11/03/2023 at [facility] revealed ongoing osteoporosis in lumbar spine: T score -4.0 see details in media section of epic. Since she reported increased bone pain while on the Fosamax she was switched to: Prolia (denosumab) administered subcutaneously every 6 months. 1st Prolia dose injected on 03/16/2023 Importance of proper calcium vitamin D supplementation and daily weightbearing exercises stressed and strongly encouraged. Deletorious effect of chronic cigarette smoking on bone density explained and encouraged to focus on complete smoking cessation. She is ready for her 3rd subcutaneous every 6 months Prolia dose today: Documentation to prescribe Prolia for postmenopausal osteoporosis at high risk for fracture should include but is not limited to the following: Are supplemental Calcium & Vitamin D prescribed?: Y Patient's Age and Sex: 53 F Menopausal Status: postmenopausal Is there documentation supporting the diagnosis of Osteoporosis?: Y Previous treatment of Osteoporosis: Y Agents used: Fosamax Outcomes: Stopped after 8 months Adverse reactions (if any): Severe bone pain History of previous fracture(s): N Type of fracture: Cause: Time since occurrence: Risk factors for future fracture, including preventive measures: Encouraged to continue daily weightbearing exercises, proper calcium and vitamin D supplementation, fall and fracture prevention strategies and stop cigarette smoking MARANDA. # 2 PROLIA INJECTED INTO LEFT ARM UNEVENTFULLY PATIENT SUPPLIED Assessment & Plan (03/12/2024 3:30 PM EDT): Managed by rheumatology. Assessment & Plan (10/03/2023 5:37 PM EST): She was briefly treated with alendronate but discontinued due to pain. However, she now feels pain did not nicolás off of rx. She has been given denosumab x 3 doses. Since she now feels alendronate was not the cause of the pain, whether it would be prudent to shift back to the alendronate given less concern with rapid deterioration of bone mass with delay/cessation of denosumab given her young age. However, she is also on oral estrogen & would typically not advise combination therapy with estrogen & anti-resorptive rx but am not sure how I would handle shifting off of the denosumab, ? Give a year course of alendronate to avoid rapid increase of bone turnover coming off of the denosumab (with continuation or resumption if/when she were to come off of estradiol). Will fwd note to rheumatology whom has been managing rx. Assessment & Plan (09/19/2023 10:10 AM EST): According to her report she started Fosamax in October 2021. Most recent BMD from 10/20/2021 at [facility] revealed marked osteoporosis in lumbar spine: T score -4.4 and left femoral neck with T score -3.0-see details in media section of epic. Since she reports increased bone pain while on the Fosamax I provided her with literature on alternative medication: Prolia (denosumab) administered subcutaneously every 6 months. Importance of proper calcium vitamin D supplementation and daily weightbearing exercises stressed and strongly encouraged. Deletorious effect of chronic cigarette smoking on bone density explained and encouraged to focus on complete smoking cessation. She is ready for her 2nd subcutaneous every 6 months Prolia dose today: ? Documentation to prescribe Prolia for postmenopausal osteoporosis at high risk for fracture should include but is not limited to the following: ; Are supplemental Calcium & Vitamin D prescribed?: Y ; Patient's Age and Sex: 53 F ; Menopausal Status: postmenopausal ; Is there documentation supporting the diagnosis of Osteoporosis?: Y ; Previous treatment of Osteoporosis: Y ; Agents used: Fosamax ; Outcomes: Stopped after 8 months ; Adverse reactions (if any): Severe bone pain ; History of previous fracture(s): N ; Type of fracture: ; Cause: ; Time since occurrence: ; Risk factors for future fracture, including preventive measures: Encouraged to continue daily weightbearing exercises, proper calcium and vitamin D supplementation, fall and fracture prevention strategies and stop cigarette smoking MARANDA. # 2 PROLIA INJECTED INTO LEFT ARM UNEVENTFULLY PATIENT SUPPLIED Assessment & Plan (04/04/2023 10:35 AM EDT): According to her report she started Fosamax in October 2021. Most recent BMD from 10/20/2021 at [facility] revealed marked osteoporosis in lumbar spine: T score -4.4 and left femoral neck with T score -3.0-see details in media section of epic. Since she reports increased bone pain while on the Fosamax I provided her with literature on alternative medication: Prolia (denosumab) administered subcutaneously every 6 months. Importance of proper calcium vitamin D supplementation and daily weightbearing exercises stressed and strongly encouraged. Deletorious effect of chronic cigarette smoking on bone density explained and encouraged to focus on complete smoking cessation. She is ready for her first subcutaneous every 6 months Prolia dose today: ? Documentation to prescribe Prolia for postmenopausal osteoporosis at high risk for fracture should include but is not limited to the following: ; Are supplemental Calcium & Vitamin D prescribed?: Y ; Patient's Age and Sex: 52 F ; Menopausal Status: postmenopausal ; Is there documentation supporting the diagnosis of Osteoporosis?: Y ; Previous treatment of Osteoporosis: Y ; Agents used: Fosamax ; Outcomes: Stopped after 8 months ; Adverse reactions (if any): Severe bone pain ; History of previous fracture(s): N ; Type of fracture: ; Cause: ; Time since occurrence: ; Risk factors for future fracture, including preventive measures: Encouraged to continue daily weightbearing exercises, proper calcium and vitamin D supplementation, fall and fracture prevention strategies and stop cigarette smoking MARANDA. # 1 PROLIA INJECTED INTO LEFT ARM PATIENT SUPPLIED Assessment & Plan (01/05/2023 3:33 PM EST): According to her report she started Fosamax in the fall 2020. Most recent BMD from 10/20/2021 at [facility] revealed marked osteoporosis in lumbar spine: T score -4.4 and left femoral neck with T score -3.0-see details in media section of epic. Since she reports increased bone pain while on the Fosamax I provided her with literature on alternative medication: Prolia (denosumab) administered subcutaneously every 6 months. Importance of proper calcium vitamin D supplementation and daily weightbearing exercises stressed and strongly encouraged. Deletorious effect of chronic cigarette smoking on bone density explained and encouraged to focus on complete smoking cessation. Assessment & Plan (09/01/2022 11:50 AM EDT): According to her report she started Fosamax in the fall 2020. Most recent BMD from 10/20/2021 at [facility] revealed marked osteoporosis in lumbar spine: T score -4.4 and left femoral neck with T score -3.0-see details in media section of epic. Since she reports increased bone pain while on the Fosamax I provided her with literature on alternative medication: Prolia (denosumab) administered subcutaneously every 6 months. Importance of proper calcium vitamin D supplementation and daily weightbearing exercises stressed and strongly encouraged. Deletorious effect of chronic cigarette smoking on bone density explained and encouraged to focus on complete smoking cessation. Assessment & Plan (06/09/2022 10:28 AM EDT): According to her report she started Fosamax in the fall 2020-I requested release of BMD details. Importance of proper calcium vitamin D supplementation and daily weightbearing exercises stressed and strongly encouraged. Deletorious effect of chronic cigarette smoking on bone density explained and encouraged to focus on complete smoking cessation. Assessment & Plan (04/09/2022 10:33 AM EDT): According to her report she started Fosamax in the fall 2020-I requested release of BMD details. Importance of proper calcium vitamin D supplementation and daily weightbearing exercises stressed and strongly encouraged. Deletorious effect of chronic cigarette smoking on bone density explained and encouraged to focus on complete smoking cessation. Moderate episode of recurrent major depressive d isorder 04/06/2022 Assessment & Plan (04/09/2022 10:35 AM EDT): Continue close follow-up with treating psychiatrist and take medications exactly as prescribed. Optimize laxation and stress management strategies Cough 04/06/2022 Assessment & Plan (04/09/2022 10:29 AM EDT): Possible multifactorial origin including allergies and or chronic bronchitis/COPD from over 3 decades ago cigarette smoking. See joint setter as scheduled in mid April 2022. Gastroesophageal reflux dise ase with esophagitis without hemorrhage 04/06/2022 Assessment & Plan (07/01/2024 4:06 PM EDT): Avoid late, large, spicy meals. Keep headboard elevated at 45?? angle for nighttime. Importance of complete smoking cessation strongly underscored. Assessment & Plan (06/13/2024 11:53 AM EDT): Avoid late, large, spicy meals. Keep headboard elevated at 45?? angle for nighttime. Importance of complete smoking cessation strongly underscored. Assessment & Plan (03/24/2024 11:43 AM EDT): Avoid late, large, spicy meals. Keep headboard elevated at 45?? angle for nighttime. Importance of complete smoking cessation strongly underscored. Assessment & Plan (09/18/2023 1:49 PM EST): Avoid late, large, spicy meals. Keep headboard elevated at 45?? angle for nighttime. Assessment & Plan (03/16/2023 4:08 PM EDT): Avoid late, large, spicy meals. Keep headboard elevated at 45?? angle for nighttime. Assessment & Plan (09/01/2022 11:51 AM EDT): Avoid late, large, spicy meals. Keep headboard elevated at 45?? angle for nighttime. She was explained that cigarette smoking increases the severity of heartburn therefore cigarette smoking cessation will provide additional benefit in that regard. Assessment & Plan (06/09/2022 10:29 AM EDT): Avoid late, large, spicy meals. Keep headboard elevated at 45?? angle for nighttime. Assessment & Plan (04/09/2022 10:34 AM EDT): Avoid late, large, spicy meals. Keep headboard elevated at 45?? angle for nighttime. RLS (restless legs syndrome) 04/06/2022 Assessment & Plan (04/09/2022 10:34 AM EDT): Follow closely with neurologist and sleep medicine specialist as scheduled. Urinary frequency 04/06/2022 Tobacco dependence 04/06/2022 Assessment & Plan (07/01/2024 4:06 PM EDT): I have spent at least 3 minutes on encouraging her to work on complete smoking cessation by reducing number of cigarettes smoked daily by 1 cigarette every week and be ready for dealing with cravings by stocking finger size healthy snacks such as small carrots, cucumbers, celery sticks etc. I reviewed with her multiple ill effects of ongoing cigarette smoking including but not limited to increased risk of developing lung cancer, bladder cancer, cervical cancer, stroke and heart attack. She admits that she is not ready to quit therefore I suggested her to meet/talk to cigarette smoking cessation specialist who may help her in developing motivational strategy to succeed. I provided her with free service to quit smoking by callin-800-[email or web address] NOW. She admits that 10 minutes session every other week was certainly not enough for her. Assessment & Plan (06/13/2024 11:53 AM EDT): I have spent at least 3 minutes on encouraging her to work on complete smoking cessation by reducing number of cigarettes smoked daily by 1 cigarette every week and be ready for dealing with cravings by stocking finger size healthy snacks such as small carrots, cucumbers, celery sticks etc. I reviewed with her multiple ill effects of ongoing cigarette smoking including but not limited to increased risk of developing lung cancer, bladder cancer, cervical cancer, stroke and heart attack. She admits that she is not ready to quit therefore I suggested her to meet/talk to cigarette smoking cessation specialist who may help her in developing motivational strategy to succeed. I provided her with free service to quit smoking by callin-QUIT- NOW. She admits that 10 minutes session every other week was certainly not enough for her. Assessment & Plan (03/24/2024 11:44 AM EDT): I have spent at least 3 minutes on encouraging her to work on complete smoking cessation by reducing number of cigarettes smoked daily by 1 cigarette every week and be ready for dealing with cravings by stocking finger size healthy snacks such as small carrots, cucumbers, celery sticks etc. I reviewed with her multiple ill effects of ongoing cigarette smoking including but not limited to increased risk of developing lung cancer, bladder cancer, cervical cancer, stroke and heart attack. She admits that she is not ready to quit therefore I suggested her to meet/talk to cigarette smoking cessation specialist who may help her in developing motivational strategy to succeed. I provided her with free service to quit smoking by callin-QUIT- NOW. She admits that 10 minutes session every other week was certainly not enough for her. Assessment & Plan (09/19/2023 10:14 AM EST): I have spent at least 3 minutes on encouraging her to work on complete smoking cessation by reducing number of cigarettes smoked daily by 1 cigarette every week and be ready for dealing with cravings by stocking finger size healthy snacks such as small carrots, cucumbers, celery sticks etc. I reviewed with her multiple ill effects of ongoing cigarette smoking including but not limited to increased risk of developing lung cancer, bladder cancer, cervical cancer, stroke and heart attack. She admits that she is not ready to quit therefore I suggested her to meet/talk to cigarette smoking cessation specialist who may help her in developing motivational strategy to succeed. I provided her with free service to quit smoking by callin-QUIT- NOW Assessment & Plan (03/16/2023 4:08 PM EDT): I have spent at least 3 minutes on encouraging her to work on complete smoking cessation by reducing number of cigarettes smoked daily by 1 cigarette every week and be ready for dealing with cravings by stocking finger size healthy snacks such as small carrots, cucumbers, celery sticks etc. I reviewed with her multiple ill effects of ongoing cigarette smoking including but not limited to increased risk of developing lung cancer, bladder cancer, cervical cancer, stroke and heart attack. She admits that she is not ready to quit therefore I suggested her to meet/talk to cigarette smoking cessation specialist who may help her in developing motivational strategy to succeed. Assessment & Plan (01/05/2023 3:34 PM EST): I have spent at least 3 minutes on encouraging her to work on complete smoking cessation by reducing number of cigarettes smoked daily by 1 cigarette every week and be ready for dealing with cravings by stocking finger size healthy snacks such as small carrots, cucumbers, celery sticks etc. I reviewed with her multiple ill effects of ongoing cigarette smoking including but not limited to increased risk of developing lung cancer, bladder cancer, cervical cancer, stroke and heart attack. She admits that she is not ready to quit therefore I suggested her to meet/talk to cigarette smoking cessation specialist who may help her in developing motivational strategy to succeed. Assessment & Plan (08/12/2022 12:23 PM EDT): I have spent at least 3 minutes on encouraging her to work on complete smoking cessation by reducing number of cigarettes smoked daily by 1 cigarette every week and be ready for dealing with cravings by stocking finger size healthy snacks such as small carrots, cucumbers, celery sticks etc. I reviewed with her multiple ill effects of ongoing cigarette smoking including but not limited to increased risk of developing lung cancer, bladder cancer, cervical cancer, stroke and heart attack. She admits that she is not ready to quit therefore I suggested her to meet/talk to cigarette smoking cessation specialist who may help her in developing motivational strategy to succeed. Assessment & Plan (06/09/2022 10:29 AM EDT): I have spent at least 3 minutes on encouraging her to work on complete smoking cessation by reducing number of cigarettes smoked daily by 1 cigarette every week and be ready for dealing with cravings by stocking finger size healthy snacks such as small carrots, cucumbers, celery sticks etc. I reviewed with her multiple ill effects of ongoing cigarette smoking including but not limited to increased risk of developing lung cancer, bladder cancer, cervical cancer, stroke and heart attack. She admits that she is not ready to quit therefore I suggested her to meet/talk to cigarette smoking cessation specialist who may help her in developing motivational strategy to succeed. Assessment & Plan (04/09/2022 10:37 AM EDT): I have spent at least 3 minutes on encouraging her to work on complete smoking cessation by reducing number of cigarettes smoked daily by 1 cigarette every week and be ready for dealing with cravings by stocking finger size healthy snacks such as small carrots, cucumbers, celery sticks etc. I reviewed with her multiple ill effects of ongoing cigarette smoking including but not limited to increased risk of developing lung cancer, bladder cancer, cervical cancer, stroke and heart attack. She admits that she is not ready to quit therefore I suggested her to meet/talk to cigarette smoking cessation specialist who may help her in developing motivational strategy to succeed. 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 Reports good consistency taking rx. Will repeat labs when sees rheum next month. Assessment & Plan (09/09/2024 5:26 PM EDT): TSH mildy high. Reports good consistency taking rx. Advised to shift rx to hs w/ vitamin D to separate from calcium/food. Assessment & Plan (03/12/2024 3:30 PM EDT): TSH mildy high. Reports good consistency taking rx. No change in weight or other reason to explain level being off. Will increase rx to 1 tablet 6 days/week, 2 tablets on the 7th day & repeat labs in 6-8 weeks. Assessment & Plan (10/03/2023 5:27 PM EST): Last TSH mildly high but improved. Reports good consistency taking rx. Dosage was increased by PCP. Included TFTs with next labs. Assessment & Plan (04/09/2022 10:29 AM EDT): Continue thyroid replacement as prescribed to keep it euthyroid. Hyperparathyroidism Overview (03/12/2024): high PTH with normal calcium. some fluctuation in PTH levels. highest level was shortly after her first denosumab injection, with her lowest level being just before a dose. Hx vitamin D deficiency and inadequate calcium intake. Was also on HCTZ. 24 hr urine calcium was normal (I assume she was on HCTZ when this was done that can decrease the urinary calcium level, if ongoing ?s/concerns would hold for a couple of months prior to doing the 24 hr urine. advised her to take 1 gummy twice daily to get better absorption (vs 2 gummies once daily). I suspect the denosumab causing a relative decrease in her calcium levels is at least partly a cause of the high PTH, if not the predominant issue now that she is doing better w/ calcium/vitamin D intake. Assessment & Plan (03/03/2025 4:42 PM EDT): Had some fluctuation in PTH level. Had high PTH with normal calcium shortly after her first denosumab injection, with her lowest level being just before a dose. Hx of vitamin D deficiency and inadequate calcium intake. Was also on HCTZ. 24 hr urine calcium was normal (I assume she was on HCTZ when this was done that can decrease the urinary calcium level, if ongoing ?s/concerns would hold for a couple of months prior to doing the 24 hr urine). I had advised her to take 1 calcium gummy twice daily to get better absorption (vs 2 gummies once daily). I suspect the denosumab causing a relative decrease in her calcium levels in addition to inadequate calcium intake was the cause of the high PTH. She has stopped calcium supplements and is getting limited dairy intake. Hospital records do not mention holding calcium, but to stop amlodipine & HCTZ. Advised her to go back on calcium bid. To schedule follow up with PCP to review/clarify her medications.. Assessment & Plan (09/09/2024 5:30 PM EDT): Calcium, PTH, vitamin D are currently normal, with the PTH having again been high in June (with calcium lower within the normal range). It appears as if increase in PTH is related to decrease in calcium (within the normal range) after denosumab, with normalization toward the end of the 6 months. She is taking calcium supplements regularly & is on HCTZ. Will continue to monitor. Assessment & Plan (03/12/2024 3:34 PM EDT): Calcium, PTH, vitamin D are currently normal. ? If previous increase related to insufficient intake/absorption of calcium & deposition of calcium in bone due to denosumab. She is on HCTZ. Will continue to monitor. Assessment & Plan (10/03/2023 5:18 PM EST): 53 y.o. woman with multiple medical problems. Has had high PTH with normal calcium. She has had some fluctuation in PTH levels. Of note, her initial, highest level was shortly after her first denosumab injection, with her lowest level being just before her most recent level. She has a history of vitamin D deficiency and inadequate calcium intake, although her recent vitamin D has been @ target & she is taking her calcium supplement regularly, although with an unusual regimen. She is also on HCTZ. Her 24 hr urine calcium was normal (I assume she was on HCTZ when this was done that can decrease the urinary calcium level, if ongoing ?s/concerns would hold for a couple of months prior to doing the 24 hr urine). Her dietary calcium is fairly low. I have advised her to take 1 gummy twice daily to get better absorption (vs 2 gummies once daily). I suspect the denosumab causing a relative decrease in her calcium levels is at least partly a cause of the high PTH, if not the predominant issue now that she is doing better w/ calcium/vitamin D intake. I have asked her to repeat labs in a few months, at least 3 months from the most recent denosumab. Resolved Problems Problem Noted Date Diagnosed Date Resolved Date Class 2 severe obesity due t o excess calories with serious comorbidity and body mass index (BMI) of 37.0 to 37.9 in adult 04/06/2022 Assessment & Plan (03/20/2024 1:08 PM EDT): Continue diligent portion control. Limit concentrated sugars, saturated fats and calories in the diet. Keep well-hydrated. If unable to achieve expected goal consider formal dietary/nutritional support. Assessment & Plan (09/19/2023 10:11 AM EST): Continue diligent portion control. Limit concentrated sugars, saturated fats and calories in the diet. Keep well-hydrated. If unable to achieve expected goal consider formal dietary/nutritional support. Assessment & Plan (03/16/2023 4:08 PM EDT): Portion control. Limit concentrated sugars, saturated fats and calories in the diet. Keep well-hydrated. If unable to achieve expected goal consider formal dietary/nutritional support. Assessment & Plan (01/05/2023 3:34 PM EST): Portion control. Limit concentrated sugars, saturated fats and calories in the diet. Keep well-hydrated. If unable to achieve expected goal consider formal dietary/nutritional support. Assessment & Plan (09/01/2022 11:45 AM EDT): Continue diligent portion control. Limit concentrated sugars, saturated fats and calories in the diet. Keep well-hydrated. If unable to achieve expected goal consider formal dietary/nutritional support. Assessment & Plan (06/26/2022 10:38 AM EDT): Continue diligent portion control. Limit concentrated sugars, saturated fats and calories in the diet. Keep well-hydrated. If unable to achieve expected goal consider formal dietary/nutritional support. Assessment & Plan (04/09/2022 10:30 AM EDT): Diligent portion control. Limit concentrated sugars, saturated fats and calories in the diet. Keep well-hydrated. If unable to achieve expected goal consider formal dietary/nutritional support. 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 (Primary Dx); Age-related osteoporosis without current pathological fracture; Hyperparathyroidism 03/03/2025 Telephone [facility] Endocrinology [address] [place] [address] Marilin Arcos MD 03/03/2025 Telephone [facility] Rheumatology [address] [place] [address] Mandi Mcdonnell MD Medication Prior Authorization 02/28/2025 Telephone [facility] Endocrinology [address] [place] [address] Marilin Arcos MD Telemedicine 02/18/2025 Telephone [facility] Endocrinology [address] [place] [address] Lupe Strong RN Labs Question (For upcoming appt) 01/06/2025 Telephone [employer] [facility] Rheumatology [address] [place] [address] Mandi Mcdonnell MD ED visit/follow up from Last 3 Months Immunizations Immunization Administration Dates Next Due COVID-19 (Pre-09/04) Moderna Vaccine, mRNA, PF 01/06/2021,12/09/2020 Influenza Quadrivalent MDCK Preservative Free IM 2020,01/14/2019 Influenza Quadrivalent Prese rvative Free IM 09/06/2019 Influenza Trivalent w/ Prese rvative IM 01/24/2022,10/31/2014,08/28/2012,2010 Influenza, whole 2020, 9,01/14/2019,2013,08/28/2012,08/15/2011 PPD Test 10/11/2007 Tdap 11/24/2015,08/15/2011,08/15/2011 Zoster recombinant 09/11/2020,09/08/2020 Family History Medical History Relation Comments Heart disease Mother Hypertension Mother Relation Status Comments Mother Social History Tobacco Use Types Packs/Day Years Used Date Smoking Tobacco: Every Day Cigarettes 1.3 39.4 Started: 1985 Passive Smoke Exposure: Current Smokeless Tobacco: Never Tobacco Cessation:Ready to Q uit: Not Asked; Counseling Given: Not Answered Alcohol Use Standard Drinks/Week Comments Yes 0 [...] on file Sexual Orientation Not on file Last Filed Vital Signs Vital Sign Reading Time Taken Comments Blood Pressure 112/70 09/27/2024 11:22 AM EST Pulse 86 09/09/2024 1:42 PM EDT Temperature 36.2 ??C (97.2 ??F) 10/02/2023 1:20 PM ES T Respiratory Rate 16 04/06/2022 1:01 PM EDT Oxygen Saturation 98% 09/09/2024 1:42 PM EDT Inhaled Oxygen Concentration - - Weight 99.2 kg (218 lb 9.6 oz) 09/27/2024 11:22 AM EST Height 158.4 cm (5' 2.36 ) 09/09/2024 1:42 PM ED T Body Mass Index 39.52 09/09/2024 1:42 PM EDT Plan of Treatment Upcoming Encounters Date Type Department Care Team (Late st Contact Info) Description 03/28/2025 1:00 PM EDT Office Visit [facility] Rheumatology [address] [place] [address] [place] [address] Mandi Mcdonnell MD [address] [facility], [address] [place] [address] [email or web address] 09/22/2025 11:40 AM EST Office Visit [facility] Endocrinology [address] [place] [phone] Marilin Arcos MD [address] [place] [id number] Health Maintenance Due Date Last Done Comments DEPRESSION SCREENING 1982 HEPATITIS C SCREENING 1988 HIV ONE-TIME SCREENING (18-65 YEARS) 1988 PNEUMOCOCCAL VACCINES (50+ years) (1 of 2 - PCV) 1989 PAP SMEAR 1991 COLOGUARD 2015 COLONOSCOPY 2015 COLORECTAL CANCER SCREENING 2015 FIT TEST 2015 FOBT 2015 SIGMOIDOSCOPY 2015 VIRTUAL COLONOSCOPY 2015 LUNG CANCER SCREENING (LDCT Only) 2020 ZOSTER VACCINES (2 of 2) 11/06/2020 09/11/2020, 08/14 LIPID PANEL 02/06/2024 02/05/2019 COVID-19 VACCINE ( season) 2024 09/26/2023, 10/04/2021, 01/06/2021, Additional history exists TSH LEVEL 07/01/2025 07/01/2024, 03/04/2024 POTASSIUM LEVEL 08/27/2025 08/27/2024, 06/13, 03/04/2024, Additional history exists Adult Td,Tdap Booster 11/24/2025 11/24/2015 , 08/15/2011, 08/15/2011 MAMMOGRAM 02/26/2026 02/27/2024 SMOKING Hx and SMOKELESS TOBACCO SCREENING 03/03/2026 03/03/2025 SCREENING FOR DIABETES 08/27/2027 08/27/2024 HEPATITIS A VACCINES Aged Out No long er eligible based on patient's age to complete this topic HIB VACCINES Aged Out No longer eligi ble based on patient's age to complete this topic MENINGOCOCCAL VACCINES (ACWY) Aged Out No longer eligible based on patient's age to complete this topic MENINGOCOCCAL VACCINES (B) Aged Out N o longer eligible based on patient's age to complete this topic Medical Devices Not on file Procedures Procedure Name Priority Date/Time Associated Diagnosis Comments COMPREHENSIVE METABOLIC PANEL Routine 08/27/2024 1:48 PM EDT Hyperparathyroidism , unspecified TSH WITH REFLEX Routine 07/01/2024 4:06 PM EDT 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 from Last 3 Months or Most Recently Relevant to Health Maintenance Results * (ABNORMAL) Comprehensive metabolic panel (08/27/2024 1:48 PM EDT) SODIUM 137 133 - 146 mmol/L [facility] POTASSIUM 3.4 3.3 - 5.1 mmol/L [facility] CHLORIDE 99 96 - 108 mmol/L [facility] CO2 28 21 - 35 mmol/L [facility] BUN 4(L) 6 - 19 mg/dL [facility] CREATININE 0.70 0.5 - 1.5 mg/dL [facility] GLUCOSE 93 70 - 99 mg/dL [facility] ALBUMIN 4.1 3.9 - 4.8 g/dL [facility] TOTAL PROTEIN 7.8 6.5 - 8.0 g/dL [facility] CALCIUM 9.9 8.4 - 10.3 mg/dL [facility] ALKALINE PHOSPHATASE 104 39 - 117 U/L [facility] TOTAL BILIRUBIN 0.3 0.0 - 1.2 mg/dL [facility] AST 18 0 - 37 U/L [facility] ALT 21 0 - 40 U/L [facility] GLOBULIN 3.7 1 - 4.8 g/dL [facility] EGFR 103 >59 mL/min/1.7 3m2 [facility] Comment:Estimated glomerular filtration rate calculated using the CKD-EPI refit equation. ANION GAP 13 10 - 20 mmol/L [facility] Blood 08/27/2024 1:48 PM EDT 08/27/2024 1:53 PM EDT us Marilin Arcos MD LAB BLOOD ORDERABLES F inal Result [facility] [address] [place] [address] * TSH with reflex (07/01/2024 4:06 PM EDT) TSH 2.44 0.27 - 4.20 uIU/mL [facility] Blood 07/01/2024 4:06 PM EDT 07/01/2024 4:08 PM EDT Mariiln Arcos MD LAB BLOOD ORDERABLES F inal Result [facility] [address] [place] [address] from Last 3 Months or Most Recently Relevant to Health Maintenance Insurance [facility] MEDICARE REPLACEMENT [facility] MEDICARE REPLACEMENT [facility] MEDICARE REPLACEMENT [facility] MEDICARE [facility]PLACEMENT [facility] MEDICARE REPLACEMENT [facility] MEDICARE REPLACEMENT [facility] Care Teams Court Stenographer Relationship Specialty Start Date End Date Charlene Angulo MD [address] [place] [address] PCP - General Geriatric Psychiatry 10/29/21 Additional Source Comments The information contained in this document represents components of the legal health record. It is not the complete legal health record.[facility]
--- OUTSIDE RECORDS SUMMARY | 2025-03-27 12:50 | XMS_ITS | Clinical Summary ---
Author Organization Patient Business Ser [facility] Address [address] [place] [address] Care Team Providers Care Bag Washer Name Role Phone Charlene Angulo MD Primary Care Provider Allergies Active Allergy Reactions Criticality Noted Date Comments Baclofen 08/20/2021 Iodine Itching 05/27/2024 Milk 04/13/2021 powdered Oxcarbazepine 08/20/2021 Prednisone Psychiatric 07/01/2024 Mood swings Ropinirole Psychiatric,Unknown 06/09/2022 Topiramate 08/20/2021 Medications albuterol HFA (PROAIR HFA ; PROVENTIL HFA ; VENTOLIN HFA) 90 mcg/actuation inhaler INHALE 2 PUFFS EVERY 6 HOURS NEEDED FOR WHEEZING AND SHORTNESS OF BREATH 4 Active amitriptyline (ELAVIL) 10 mg tablet Take 75 mg by mouth daily. 1 Active atorvastatin (LIPITOR) 20 mg tablet Take 1 tablet (20 mg total) by mouth 1 (one) time each day. Active sodium chloride-aloe vera ([place] Saline Gel) spray,non-aerosol by Nasal route. Active carbidopa-levodop a (SINEMET) 25-100 mg per tablet Take 1 Tablet by mouth 3 times daily. Active clonazePAM (KlonoPIN) 0.5 mg tablet Take 1 tablet (0.5 mg total) by mouth. 3 Active cloNIDine (CATAPRES) 0.1 mg tablet TAKE 1 TABLET BY MOUTH EVERY NIGHT AT BEDTIME NEEDED FOR SLEEP 4 Active esomeprazole (NexIUM) 40 mg packet Take 40 mg by mouth every morning (before breakfast). Active gabapentin (NEURONTIN) 600 mg tablet Take 1 tablet (600 mg total) by mouth 3 (three) times a day. Active levothyroxine (SYNTHROID, LEVOTHROID) 88 mcg tablet Take 1 tablet (88 mcg total) by mouth 1 (one) time each day. 4 Active OXCARBAZEPINE ORAL Take 150 mg by mouth 2 (two) times a day. Active triamterene-hydro CHLOROthiazide (DYAZIDE) 37.5-25 mg per capsule TAKE 1 CAPSULE BY MOUTH DAILY NEEDED FOR SWELLING 4 Active venlafaxine (EFFEXOR) 37.5 mg tablet Take 1 Tablet by mouth 3 times daily. Active cholecalciferol (VITAMIN D-3) 50 mcg (2,000 unit) capsule Take by mouth. Activ e cyanocobalamin (VITAMIN B-12) 500 mcg tablet Take 1 tablet (500 mcg total) by mouth 1 (one) time each day. 4 Active denosumab (PROLIA) 60 mg/mL syringe syringe Inject 1 mL (60 mg total) under the skin every 6 months. 3 Active methylphenidate 36 mg ER tablet Take 1 tablet (36 mg total) by mouth 1 (one) time each day in the morning. Do not crush, chew, or split. Active calcium carbonate 260 mg calcium (650 mg) tablet,chewable Chew. Acti ve thiamine 100 mg tablet Take 1 tablet (100 mg total) by mouth 1 (one) time each day. Active Vraylar 4.5 mg capsule Take 1 capsule (4.5 mg total) by mouth 1 (one) time each day. 4 Active atomoxetine (STRATTERA) 40 mg capsule Take 1 capsule (40 mg total) by mouth 1 (one) time each day. 4 Active amLODIPine (NORVASC) 5 mg tablet 1 tablet (5 mg total) 1 (one) time each day at the same time. Active acetaminophen (TYLENOL) 500 mg tablet Take 2 tablets (1,000 mg total) by mouth 2 times daily as needed. 04/06/202 3 Active cholecalciferol-s oy isoflavone 2,000-64 unit-mg tablet Take 50 mcg by mouth 1 (one) time each day. 3 Active Incruse Ellipta 62.5 mcg/actuation inhalation Inhale 1 puff by mouth 1 (one) time each day. 4 Active methocarbamoL (ROBAXIN) 750 mg tablet Take 1 tablet (750 mg total) by mouth 3 (three) times a day. Active lisinopriL (PRINIVIL,ZESTRIL ) 5 mg tablet Take 1 tablet (5 mg total) by mouth 1 (one) time each day. Active furosemide (LASIX) 40 mg tablet Take 1 tablet (40 mg total) by mouth 1 (one) time each day. Active Wixela Inhub 250-50 mcg/dose diskus inhaler Inhale 1 puff by mouth 2 (two) times a day. 4 Active fluticasone propionate (FLONASE) 50 mcg/actuation nasal sprayIndications: Respiratory bronchiolitis associated interstitial lung disease ([facility] V24, [facility] V28),Chronic obstructive pulmonary disease, unspecified COPD type ([facility] V24, [facility] V28),Snoring,Exce ssive daytime sleepiness Administer 2 sprays into each nostril 1 (one) time each day. Shake gently. Before first use, prime pump. After use, clean tip and replace cap. 16 g 1 4 Active Active Problems Problem Noted Date Diagnosed Date Cubital tunnel syndrome on left 02/09/2024 Cubital tunnel syndrome on right 02/09/2024 Left carpal tunnel syndrome 02/09/2024 Right carpal tunnel syndrome 02/09/2024 Respiratory bronchiolitis as sociated interstitial lung disease ([facility] V24, [facility] V28) 07/08/2022 Overview (08/21/2024): uses 3L of O2 as needed, about 7-10x/week Heartburn 08/10/2021 Anti-cardiolipin antibody positive 06/18/2021 Elevated sed rate 06/18/2021 Raynaud's disease without gangrene 06/18/2021 Zenker diverticulum 11/12/2020 Overview (08/21/2024): 11/12/2020: Upper GI endoscopy at [facility]. 01/13/2021: surgery by Dr. Ashley. Radiculitis 10/27/2020 Fibromyalgia 10/01/2020 Alcohol abuse 06/16/2020 Bilateral ankle effusions 05/07/2020 Recurrent derangement of left ankle 05/07/2020 Polycythemia 02/17/2020 Positive Morris antibody 02/17/2020 Overview (08/21/2024): 03/02- neg EUGENIO, TOOLROOM KEEPER, SSA/SSB, SCL70, anti-centromere, RF, CCP, normal ESR/CRP, neg microalbumin Hypertension 01/21/2019 Obesity (BMI 30.0-34.9) 01/21/2019 OAB (overactive bladder) 01/30/2017 Attention deficit disorder (ADD) without hyperac tivity 10/19/2015 Bipolar affective disorder, currently depressed, moderate (CMS/HCC V24, CMS/HCC V28) 10/19/2015 Hypothyroidism 10/09/2013 Overview (08/21/2024): 09/2013, normal T4 Postcholecystectomy syndrome 12/21/2012 GERD (gastroesophageal reflux disease) 1 Immunizations Name Administration Dates Next Due Influenza Quadravalent, MDCK , 0.5ml, preservative free (Flucelvax) 6mo and older 09/26/2023,2020,01/14/2019 Influenza Quadravalent, MDCK , 0.5ml, with preservative (Flucelvax) 6mo and older 08/31/2017 Influenza Quadrivalent, 0.5m l, preservative free (Fluarix; FluLaval; Fluzone) ages 6mo and older (Afluria) 3yo and older 09/06/2019 Influenza Whole 2020, 9,01/14/2019,2013,08/28/2012,08/15/2011 Influenza trivalent, with preservative (Fluzone; Afluria) 6mo and older 01/24/2022,09/06/2019,10/31/2014,2011,08/15/2011 Moderna SARS-CoV-2 COVID-19, mRNA, LNP-S, preservative free 01/11/2021,01/06/2021,12/14/2020,2020 PPD Test 10/11/2007 Td Tetanus diptheria (Tdvax) 7yo and older 11/24/2015 Tdap Tetanus diptheria acell ular pertussis (Boostrix; Adacel) 7yo and older 11/24/2015,08/15/2011 Zoster recombinant (Shingrix ) 19yo and older 09/11/2020,09/08/2020 Surgical History Surgery Date Site/Laterality Comments ANKLE SURGERY 2004 Left PROCEDURE: HISTORICAL ANKLE SURGERY; COMMENT: date approximate; plating s/p fx SECTION 1988 PROCEDURE: HISTORICAL DELIVERY CHOLECYSTECTOMY 2012 PROCEDURE: HISTORICAL CHOLECYSTECTOMY; COMMENT: lap OTHER SURGICAL HISTORY PROCEDURE: MO STRABISMUS RECESSION/RESCJ 1 [facility]; COMMENT: child UPPER GASTROINTESTINAL ENDOSCOPY 02/13/20 14 PROCEDURE: MO UPPER GI ENDOSCOPY PERFORMED; COMMENT: Repeat exam for continued symptoms, [facility], no evidence of fungal esophagitis. UPPER GASTROINTESTINAL ENDOSCOPY 2013 PROCEDURE: MO UPPER GI ENDOSCOPY PERFORMED; COMMENT: esophageal biopsy: fungal esophagitis UPPER GASTROINTESTINAL ENDOSCOPY 11/12/20 20 PROCEDURE: MO UPPER GI ENDOSCOPY PERFORMED; COMMENT: Significant Zenker diverticulum, small inlet patch in the upper esophagus. OTHER SURGICAL HISTORY 01/14/20 21 PROCEDURE: MO UNLISTED PROCEDURE ESOPHAGUS; COMMENT: Surgery for Zenker's, Dr. Ashley ESOPHAGOGASTRODUODENOSCOPY 04/07/20 21 PROCEDURE: MO ESOPHAGOGASTRODUODENOSCOPY TRANSORAL DIAGNOSTIC; COMMENT: Postsurgical residual Zenker's appearance, inlet patch unchanged, no other abnormalities. Medical History Medical History Date Comments Depression DX:Depression Bipolar 1 disorder, depresse d (CMS/[facility] V24, CMS/HCC V28) 08/15/2011 DX:Bipolar 1 disorder, depre ssed ([facility]) GERD (gastroesophageal reflux disease) 08/15/2011 DX:GERD (gastroesophageal reflux disease) Subclinical hypothyroidism 10/09/2013 DX:Triana bclinical hypothyroidism; COMMENT: 09/2013, normal T4 Zenker diverticulum 11/12/2020 DX:Zenker di verticulum; COMMENT: 11/12/2020: Upper GI endoscopy at [facility]. Family History Medical History Relation Name Comments Other: bone cancer Aunt No Known Problems Father Hypertension Maternal Grandfather Hypertension Mother CHF, afib, PAD; thyroid disorder Other cancer Paternal Grandmother Other: cancer Uncle Breast cancer Neg Hx Colon cancer Neg Hx Relation Name Status Comments Aunt Father Alive Maternal Grandfather Mother Alive Paternal Grandmother Sister 1 Alive Sister 2 Alive Uncle Social History Tobacco Use Types Packs/Day Years Used Date Smoking Tobacco: Every Day Cigarettes Smokeless Tobacco: Never Tobacco Cessation:Ready to Q uit: Not Asked; Counseling Given: Not Answered Alcohol Use Standard Drinks/Week Comments Yes 0 (1 standard drink = 0.6 oz pur e alcohol) Comments Unknown Sex and Gender Information Value Date Recorded Sex Assigned at Not on file Legal Sex Female 5:36 PM EDT Gender Identity Not on file Sexual Orientation Not on file Obstetrics History Last Filed Vital Signs Vital Sign Reading Time Taken Comments Blood Pressure 132/80 10/24/2024 1:16 PM EST Pulse 97 10/24/2024 1:16 PM EST Temperature 35.8 ??C (96.5 ??F) 10/24/2024 1:16 PM ES T Respiratory Rate 16 10/24/2024 1:16 PM EST Oxygen Saturation 100% 10/24/2024 1:16 PM EST Inhaled Oxygen Concentration - - Weight 94.7 kg (208 lb 12.8 oz) 10/24/2024 1:16 PM EST Height 162.6 cm (5' 4 ) 10/24/2024 1:16 PM EST Body Mass Index 35.84 10/24/2024 1:16 PM EST Plan of Treatment Upcoming Encounters Date Type Department Care Team (Late st Contact Info) Description 04/01/2025 1:30 PM EDT Office Visit Orthopedic Surgery - [place] [address] [address] Marilin Evans MD [address] [facility] [address] [place] [id number] Health Maintenance Due Date Last Done Comments Hepatitis A Vaccines (1 of 2 - Risk 2-dose series) 1989 Hepatitis B Vaccines (1 of 3 - 19+ 3-dose series) 1989 Pneumococcal Vaccine: 50+ Years (1 of 2 - PCV) 1989 Pneumococcal Vaccine: Pediatrics (0 to 5 Years) and At-Risk Patients (6 to 64 Years) (1 of 2 - PCV) 1989 Zoster Vaccines (2 of 2) 11/06/2020 09/11/2020, 08/14 Colorectal Cancer Screening: Colonoscopy 04/07/2021 Depression Screening 04/07/2021 Lung Cancer Screening (Low Dose CT) 04/07/2021 Medicare Annual Wellness Visit 04/07/2021 Osteoporosis Screening (Bone Density Screening) 04/07/2021 Social Influencers of Health Screening 04/07/2021 Cholesterol Screening (Lipid Panel) 02/06/2024 02/05/2019 COVID-19 Vaccine ( season) 2024 09/26/2023, 10/04/2021, 01/11/2021, Additional history exists Influenza Vaccine (Season Ended) 2025 09/26/2023, 01/24/2022, 2020, Additional history exists Hypertension/CHF/CAD Annual BMP Blood Test 08/27/2025 08/27/2024, 07/01/2024, 03/04/2024, Additional history exists DTaP,Tdap,and Td Vaccines (4 - Td or Tdap) 11/24/2025 11/24/2015, 11/24/2015, 08/15/2011 Breast Cancer Screening 04/25/2026 04/25/20 24, 04/25/2024, 02/27/2024, Additional history exists Cervical Cancer Screening: HPV 05/31/2029 05/31/2024 HIV Screening Completed 02/16/2016 Hepatitis C Screening Completed 01/30/2020 HIB Vaccines Aged Out No longer eligi ble based on patient's age to complete this topic HPV Vaccines Aged Out No longer eligi ble based on patient's age to complete this topic IPV Vaccines Aged Out No longer eligi ble based on patient's age to complete this topic MMR Vaccines Aged Out No longer eligi ble based on patient's age to complete this topic Meningococcal ACWY Vaccine Aged Out N o longer eligible based on patient's age to complete this topic Meningococcal B Vaccine Aged Out No l onger eligible based on patient's age to complete this topic RSV Immunization Patients Under 20 months Aged Out No longer eligible based on patient's age to complete this topic Varicella Vaccines Aged Out No longer eligible based on patient's age to complete this topic Procedures Procedure Name Priority Date/Time Associated Diagnosis Comments HPV Routine 05/31/2024 DIAGNOSTIC MAMMOGRAPHY WITH CAD UNILATERAL Routine 04/25/2024 3:15 PM EDT Other abnormal and inconclusive findings on diagnostic imaging of breast ANNUAL BMP BLOOD TEST Routine 03/04/2024 HEPATITIS C SCREENING Routine 01/30/2020 LIPID PANEL Routine 02/05/2019 HIV SCREENING Routine 02/16/2016 from Last 3 Months or Most Recently Relevant to Health Maintenance Results * Cervical Cancer Screening: HPV (05/31/2024) Cervical Cancer Screening: HPV negative,a bstracted us Historical Provider MD HEALTH MAINTENANCE Final Result * DIAGNOSTIC MAMMOGRAPHY WITH CAD UNILATERAL (04/25/2024 3:15 PM EDT) Anatomical Region Laterality Modality Mammography 02/29/2024 7:50 AM EDT Narrative 04/25/2024 4:26 PM EDT This is a summary report. The complete report is available in the patient's medical record. If you cannot access the medical record, please contact the sending organization for a detailed fax or copy. LEFT DIGITAL 3D DIAGNOSTIC MAMMOGRAM HISTORY: Workup for left breast cc view lateral middle depth asymmetry which may correspond to ML central to the nipple middle depth asymmetry. TECHNIQUE: Full-field ML, CC and exaggerated CC spot compression 3D CAD was used COMPARISON: Mammogram from 02/27/2024 FINDINGS: Left breast cc view lateral middle depth asymmetry which may correspond to ML view central to the nipple middle depth asymmetry persist on spot compression and is probably benign. ??Sonographic evaluation demonstrates no focal abnormality Density: B LEFT BREAST TARGETED ULTRASOUND EVALUATION HISTORY: Workup for left breast cc view lateral middle depth asymmetry which may correspond to ML central to the nipple middle depth asymmetry TECHNIQUE: Ultrasonographic examination is performed using a linear array transducer. ??Targeted left breast ultrasound was performed from 12:00 to 3:00 and retroareolar to evaluate mammographic finding. ??Real-time sonographic scanning was also performed by the radiologist. FINDINGS: From 12:00 to 3:00, no sonographic evidence of malignancy or other focal abnormalities were identified at the left breast and area of mammographic concern. In the retroareolar region, no sonographic evidence of malignancy on real-time scanning performed by the radiologist. Impression: 1. ??Probably benign cc view lateral middle depth asymmetry which may correspond to ML central to the nipple middle depth asymmetry. BI-RADS Category 3 probably benign Recommendation: CC and ML spot compression in 6 months Procedure Note Roseanne Marrero MD - 08/28/2024 This is a summary report. The complete report is available in thepatient's medical record. If you cannot access the medical record, pleasecontact the sending organization for a detailed fax or copy. LEFT DIGITAL 3D DIAGNOSTIC MAMMOGRAM HISTORY: Workup for left breast cc view lateral middle depth asymmetrywhich may correspond to ML central to the nipple middle depth asymmetry. TECHNIQUE: Full-field ML, CC and exaggerated CC spot compression 3D CAD was used COMPARISON: Mammogram from 02/27/2024 FINDINGS: Left breast cc view lateral middle depth asymmetry which may correspond toML view central to the nipple middle depth asymmetry persist on spotcompression and is probably benign. Sonographic evaluation demonstratesno focal abnormality Density: B LEFT BREAST TARGETED ULTRASOUND EVALUATION HISTORY: Workup for left breast cc view lateral middle depth asymmetrywhich may correspond to ML central to the nipple middle depth asymmetry TECHNIQUE: Ultrasonographic examination is performed using a linear arraytransducer. Targeted left breast ultrasound was performed from 12:00 to3:00 and retroareolar to evaluate mammographic finding. Real-timesonographic scanning was also performed by the radiologist. FINDINGS: From 12:00 to 3:00, no sonographic evidence of malignancy or other focalabnormalities were identified at the left breast and area of mammographicconcern. In the retroareolar region, no sonographic evidence of malignancy onreal-time scanning performed by the radiologist. Impression: 1. Probably benign cc view lateral middle depth asymmetry which maycorrespond to ML central to the nipple middle depth asymmetry. BI-RADS Category 3 probably benign Recommendation: CC and ML spot compression in 6 months Result [facility] Elier Echeverria CNM IMG BI PROCEDURES Final Result * Annual BMP Blood Test (03/04/2024) Pathologist [facility] Annual BMP Blood Test abstracted Result [facility] Historical Provider HEALTH MAINTENANCE Final Result * Hepatitis C Screening (01/30/2020) Pathologist [facility] Hepatitis C Screening abstracted Result [facility] Historical Provider HEALTH MAINTENANCE Final Result * Lipid panel (02/05/2019) [facility] LDL/HDL Ratio 3 0 - 4 Triglycerides 120 0 - 150 mg/dL Cholesterol 190 0 - 200 mg/dL HDL 73 >=40 mg/dL LDL Cholesterol 93 0 - 100 mg/dL Blood Venous blood specimen / Unknown Result [facility] Historical Provider LAB BLOOD ORDERABLES Day l Result * HIV Screening (02/16/2016) [facility] HIV Screening abstracted Result [facility] Provider HEALTH MAINTENANCE Final Result from Last 3 Months or Most Recently Relevant to Health Maintenance Insurance [facility] [employer] MEDICARE Member Subscriber Plan / Payer (Ef fective 2024-Present) Name:Sharon Evans Relation to Subscriber:Self Name:Sharon Evans Payer ID:[id number] Group ID:[id number] Type:Not on file Address: [place] [address] [address] [id number] Care Teams Bag Washer Relationship Specialty Start Date End Date Charlene Angulo MD [address] [place], [place] PCP - General Internal Medicine 04/26/22
--- OUTSIDE RECORDS SUMMARY | 2025-03-27 12:50 | XMS_ITS | Patient Health Record ---
Author Organization [facility] Address [address] [place] [address] Care Team Providers Care Ceramic Engineer Name Role Phone Charlene Angulo Primary Care Provider Noah Palomares Unavailable [phone] Allergies Allergen (clinical drug ingredient) Drug/Non Drug Allergy documented on EMR Reaction Allergy Type Onset Date Status Requip Unknown Drug Allergy Active carbamazepine TEGretol Unknown Drug Allergy Act hetal oxcarbazepine Trileptal mental confusion, slurred speech Drug Allergy Active baclofen Baclofen mental confusion, slurred speech Drug Allergy Active ropinirole Ropinirole Unknown Drug Allergy Activ e topiramate Topiramate mental confusion, slurred speech Drug Allergy Active Reason For Referral No Information Medications Medication SIG (Take, Route, Frequency, Duration) Notes Start Date End Date Status Prempro Active Prolia Active Saline Nasal [place] A ctive Triamterene Active Tylenol Active Venlafaxine HCl Acti ve Vitamin D3 25 MCG (1000 UT) 1 capsule Or ally Once a day for 30 day(s) Active KlonoPIN 2 MG 1 tablet Orally Once a day Not-Taking Aspercreme Lidocaine 4 % 1 application Externally Three times a day for 30 days 06/23/2021 Not-Taking Amitriptyline HCl Ac tive BuSpar 15mg TID Not-Taking Concerta 54 MG 1 tablet in the morning Orally Once a day Active TEGretol 200 MG 1 tablet Orally Twice a day for 30 day(s) Not-Taking Nightsplint . . . AFO - L1930 for . Active Glucosamine Not-Taki ng Pepcid Not-Taking Nauzene Not-Taking Adderall Not-Taking Chlorthalidone 25 MG 1 tablet in the morning with food Orally Once a day for 30 day(s) Not-Taking Glycopyrrolate Not-T aking Ammonium Lactate 12 % 1 application Externally Twice a day for 30 days Active Meloxicam Not-Taking NexIUM Not-Taking Ajovy Not-Taking Rexulti 1 MG 1 tablet Orally Once a day Not-Taking hydrOXYzine HCl 10 MG as directed Orally Not-Taking Methocarbamol 750 MG 1 tablet Orally every 4 hrs for 30 day(s) Not-Taking Focalin Not-Taking Cymbalta 60 MG 1 capsule Orally Once a day for 30 day(s) Not-Taking TEGretol 200 MG 1 tablet Orally Twice a day for 30 day(s) Not-Taking LORazepam Not-Taking Gabapentin 800 MG 1 tablet Orally Once a day for 30 day(s) Not-Taking Dicyclomine HCl Not- Taking Lisinopril 5 MG 1 tablet Orally Once a day for 30 day(s) Not-Taking tiZANidine HCl 4 MG 1 tablet as needed Orally Three times a day Not-Taking Meloxicam Not-Taking Lyrica 200 MG 1 capsule 1 to 3 hours before bedtime Orally Once a day Not-Taking Focalin 10 MG 1 tablet Orally Twice a day Not-Taking PROzac 40 MG 1 capsule Orally Once a day for 30 day(s) Not-Taking LORazepam 0.5 MG 1 tablet at bedtime as needed Orally Once a day Not-Taking Night Splint AFO - L1930 as directed 10/25/2021 Not-Taking hydroCHLOROthiazide Not-Taking Omeprazole 40mg Not-Takin g Pregabalin Not-Takin g Scopolamine Not-Taki ng amLODIPine Besylate 5 MG 1 tablet Orally Once a day for 30 day(s) Not-Taking Pantoprazole Sodium 40 MG 1 tablet Orall y Once a day for 30 day(s) nexium Not-Taking Atorvastatin Calcium 20 MG 1 tablet Oral ly Once a day for 30 day(s) Active Alendronate Sodium N ot-Taking Myrbetriq Not-Taking Fluoxetine Not-Takin g Geodon 120mg Not-Taking Calcium Active Carbidopa-Levodopa A ctive clonazePAM Active Esomeprazole Magnesium Active Estradiol Not-Taking Indomethacin Not-Rg ing [place]al 3 Not-Taking Atrovent HFA PRN Not-Rg ing Lidocaine Not-Taking Gabapentin Active Latuda 80 MG 1 tablet in the evening with food Orally Once a day Active oxyBUTYnin Not-Takin g Levothyroxine Sodium 25 MCG 1 tablet in the morning on an empty stomach Orally Once a day for 30 day(s) Active VESIcare 10 MG 1 tablet Orally Once a day for 30 day(s) Not-Taking Nicoderm CQ PRN Active Nitro-Bid 2 % as directed Transdermal Twice a day for 30 days 07/05/2022 Not-Taking Afztpgvmz-Uwuanvpip-Oteovzu az Not-Taking Melatonin Not-Taking Benadryl Not-Taking Mucinex Not-Taking Immunizations Vaccine Route Administration Date Status Comme nts COVID-19 Moderna Vaccine Unknown 12/14/2020 Administere d COVID-19 Moderna Vaccine Unknown 01/11/2021 Administere d Social History Tobacco Use: Social History Observation Description Date Details (start date - stop date) Current Smoker NA - NA Tobacco Use/Smoking Question Answer Notes Are you a: current smoker When did you start smoking? 3/4 packs for 20yrs Alcohol Screen Question Answer Notes Did you have a drink containing alcohol in the p ast year? No Points 0 Interpretation Negative Tobacco use other than smoking: Question Answer Notes Are you an other tobacco user? Yes m arijuana Problems Problem Type SNOMED Code ICD Code Onset Dates Problem Status W/U Status Risk Notes Problem 753004050 Neuropathy (G62.9) Active confirmed Problem 268484971 Raynaud's diseas e without gangrene (I73.00) Active confirmed Problem 963063941531622 Atherosclerosis of shoshone[place]paiute artery of both lower extremities, with unspecified presence of clinical manifestation (I70.203) Active confirmed Vital Signs Height 5ft 4 in in 07/01/2024 Weight 220 lbs 07/01/2024 BMI 37.76 kg/m2 07/01/2024 Procedures Procedure Date Ordered Date Performed Result Body Sit e 77848-UJXHRZW NAIL, 6 OR MORE 07/01/2024 N/A 97067-OKHZ SKIN LESIONS, OVER 4 07/01/2024 N/A Encounters Encounter Location Date Provider Diagnosis [facility] [address] [address] 07/01/2024 Noah Obregon Atherosclerosis of shoshone-paiute artery of both lower extremities, with unspecified presence of clinical manifestation I70.203 ; Onychomycosis B35.1 ; Pain of toe of right foot M79.674 ; Pain of toe of left foot M79.675 ; Xerosis of skin L85.3 and Raynaud's disease without gangrene I73.00 [facility] [address] [facility] [address] [place] [address] 06/25/2024 [facility] [address] [facility] [address] [place] [address] 02/10/2025 Noah Sabas Assessments Encounter Date Diagnosis (ICD Code) Assessment Notes Treatment Notes Treatment Clinical Notes Section Notes 07/01/2024 Onychomycosis (ICD-10 - B35.1) 07/01/2024 Atherosclerosis of shoshone[place]paiute artery of both lower extremities, with unspecified presence of clinical manifestation (ICD-10 - I70.203) 07/01/2024 Pain of toe of right foot (ICD-10 - M79.674) 07/01/2024 Pain of toe of left foot (ICD-10 - M79.675) 07/01/2024 Xerosis of skin (ICD-10 - L85.3) 07/01/2024 Raynaud's disease without gangrene (ICD-10 - I73.00) Plan Of Treatment Pending Test Test Name Order Date X ray : Foot, left 3V 10/20/2021 X ray : Foot, left 3V 04/27/2023 X ray : Foot, right 3V 07/05/2022 12968-HAUGUHN NAIL, 6 OR MORE 10/10/2022 42831-NFAGXJN NAIL, 6 OR MORE 03/22/2023 79800-YSLCYDO NAIL, 6 OR MORE 06/14/2023 73425-YQCJGRC NAIL, 6 OR MORE 10/25/2023 97242-IIXROND NAIL, 6 OR MORE 05/30/2022 01280-DJOODKM NAIL, 6 OR MORE 2021 91329-WPJQYVM NAIL, 6 OR MORE 08/26/2020 42316-PVDWRDY NAIL, 6 OR MORE 04/22/2021 71640-NAWIOGK NAIL, 6 OR MORE 02/26/2024 14198-OZEZSWW NAIL, 6 OR MORE 07/01/2024 47543-UZLO SKIN LESIONS, OVER 4 07/01/20 24 88115-PPUQ SKIN LESIONS, OVER 4 02/26/20 24 44653-DUOG SKIN LESIONS, OVER 4 08/19/20 15013-SRWT SKIN LESIONS, OVER 4 05/30/20 77569-IUTH SKIN LESIONS, OVER 4 10/25/20 23 30307-NLHD SKIN LESIONS, OVER 4 06/14/20 23 15831-HPXP SKIN LESIONS, OVER 4 03/22/20 23 14344-TWUG SKIN LESIONS, OVER 4 10/10/20 22 08219-ZMFW SKIN LESIONS, 2 TO 4 04/22/20 81262-NBJY SKIN LESIONS, 2 TO 4 08/26/20 Insurance Providers Payer Name Payer Address Payer Phone Subscriber Number Group Number Insured Name Patient Relationship to Insured Coverage Start Date Coverage End Date [facility] [employer] Claims [address] [place] [phone] [id number] Sharon Evans Self - patient is the insured Medical (General) History Medical History History ICD Code Anxiety Broken bones Depression Fibromyalgia Gall bladder problems Headaches/Migraines High blood pressure nerve disorder Numbness Psoriasis/eczema Psychiatric disorder raynauds disease Reflux ( GERD) thyroid Chicken pox Joint implants/screws Surgical History Surgery Date(Month/Year) left ankle surgery eye surgery Carpal Tunnel & Orbital Tunnel 05/15/24 Hospitalization History Reason Date(Month/Year) [facility], reaction to medications, low potass ium & sodium 06/03/21 [facility]- 8 day stay, altered mental sta tus 11/2020
--- OUTSIDE RECORDS SUMMARY | 2025-03-27 12:51 | XMS_ITS | Encounter Summary ---
Author Organization [facility] Address [address] [place] [address] Phone Care Team Providers Care Comedian Name Role Phone Charlene Angulo MD Primary Care Provid er Reason for Visit * Reason Onset Date Comments Medication Prior Authorization 03/03/2025 Encounter Details Date Type Department Care Team (Late st Contact Info) Description 03/03/2025 Telephone [facility] Rheumatology [address] [place] [address] Mandi Mcdonnell MD [address] [facility], [address] [place] [address] [email or web address] Medication Prior Authorization Social History Tobacco Use Types Packs/Day Years [...] as of this encounter Progress Notes * Shirley Jacobs RN - 03/25/2025 11:47 AM EDT Patient calls to make sure we have prolia in place for her upcoming appt? Informed her yes * Jovana Blood LPN - 03/05/2025 1:36 PM EDT [facility] prolia approval received Valid 03/05/25-03/05/26 * Jovana Blood LPN - 03/04/2025 8:45 AM EDT Pa form for cca completed and faxed Await response * Shirley Jacobs RN - 03/03/2025 4:14 PM EDT New PA needed for prolia documented in this encounter Plan of Treatment Upcoming Encounters Date Type Department Care Team (Late st Contact Info) Description 03/28/2025 1:00 PM EDT Office Visit [facility] Rheumatology [address] [place] [address] [place] [address] Mandi Mcdonnell MD [address] [place] [address], [address] [place] [address] [email or web address] 09/22/2025 11:40 AM EST Office Visit Aneesh Aburto [facility] Endocrinology [address] [facility] [place] [address] Marilin Arcos MD [address] [place] [address] [email or web address] documented as of this encounter Visit Diagnoses Not on filedocumented in this encounter Care Teams Comedian Relationship Specialty Start Date End Date Charlene Angulo MD [address] [place] [address] PCP - General Geriatric Psychiatry 10/29/21 documented as of this encounter Additional Source Comments The information contained in this document represents components of the legal health record. It is not the complete legal health record.[facility]
--- OUTSIDE RECORDS SUMMARY | 2025-03-27 12:51 | XMS_ITS | Encounter Summary ---
Author Organization [facility] Address [address] [place] [address] Phone Care Team Providers Care Landfill Grader Name Role Phone Charlene Angulo MD Primary Care Provid er Encounter Details Date Type Department Care Team (Latest Contact Info) Description 03/16/2023 Transcribe Orders [facility] [address] [place] [address] Mandi Mcdonnell MD [address] [facility], [address] [place] [address] [email or web address] Age-related osteoporosis without current pathological fracture (Primary Dx); Vitamin D insufficiency Social History Tobacco Use Types Packs/Day Years Used Date Smoking Tobacco: Every Day Smokeless Tobacco: Never Education Answer Date Recorded Are you interested in more education? Not on rebeca e 03/11/2023 Are you concerned about learning? Not on file 03/11/2023 No 03/11/2023 No 03/11/2023 Comments Unknown Sex and Gender Information Value Date Recorded Sex Assigned at Not on file Legal Sex Female 4:12 PM EST Gender Identity Not on file Sexual Orientation Not on file documented as of this encounter Plan of Treatment Upcoming Encounters Date Type Department Care Team (Late st Contact Info) Description 03/28/2025 1:00 PM EDT Office Visit [facility] Rheumatology [address] [place] [address] KlMandi Ray MD [address] [facility], [address] [place] [address] [email or web address] 09/22/2025 11:40 AM EST Office Visit [facility] Endocrinology [address] [address] Marilin Arcos MD [address] [place] [address] [address] [place] [address] [email or web address] documented as of this encounter Results * (ABNORMAL) CBC and differential (03/31/2023 2:26 PM EDT) WBC 9.97 4.00 - 11.00 K/uL [facility] RBC 5.06 3.72 - 5.30 M/uL [facility] HGB 14.9 10.6 - 15.5 g/dL [facility] HCT 46.2(H) 32.0 - 45.0 % [facility] PLT 288 140 - 430 K/uL [facility] MCV 91.3 78.0 - 97.0 fL [facility] MCH 29.4 25.0 - 33.0 pg [facility] MCHC 32.3 32.0 - 36.0 g/dL [facility] RDW 14.9 11.0 - 16.0 % [facility] MPV 11.8 8.4 - 12.8 fl [facility] DIFF METHOD Auto [facility] NEUTS 66.5 43.0 - 75.0 % [facility] LYMPHS 23.6 18.2 - 47.4 % [facility] MONOS 6.4 4.00 - 11.00 % [facility] EOS 1.8 0.0 - 8.0 % [facility] BASOS 1.0 0.0 - 2.0 % [facility] Granulocytes, immature (%) 0.7 0.0 - 0.9 % [facility] ABSOLUTE NEUTS 6.63 1.80 - 7.70 K/uL [facility] ABSOLUTE LYMPHS 2.35 1.00 - 3.10 K/uL [facility] ABSOLUTE MONOS 0.64 0.20 - 0.80 K/uL [facility] ABSOLUTE EOS 0.18 0.00 - 0.80 K/uL [facility] ABSOLUTE BASOS 0.10(H) 0.00 - 0.09 K/uL [facility] Granulocytes, immature 0.07(H) 0.00 - 0.05 K/uL [facility] Blood 03/31/2023 2:26 PM EDT 03/31/2023 2:30 PM EDT us Mandi Mcdonnell MD LAB BLOOD ORDERABLES Fin al Result Performing Organization Address [facility]/ZIP Co de Phone Number [address] [address] * (ABNORMAL) Sedimentation rate (ESR) (03/31/2023 2:26 PM EDT) ESR 44(H) 0 - 30 mm/h [facility] Blood 03/31/2023 2:26 PM EDT 03/31/2023 2:30 PM EDT us Mandi Mcdonnell MD LAB BLOOD ORDERABLES Fin al Result Performing Organization Address [facility] Co de Phone Number [address] [address] * Uric acid (03/31/2023 2:26 PM EDT) URIC ACID 5.4 2.4 - 7.0 mg/dL [facility] Blood 03/31/2023 2:26 PM EDT 03/31/2023 2:30 PM EDT us Mandi Mcdonnell MD LAB BLOOD ORDERABLES Fin al Result Performing Organization Address [facility]/ZIP Co de Phone Number [address] [address] * Magnesium (03/31/2023 2:26 PM EDT) MAGNESIUM 2.2 1.6 - 2.6 mg/dL [facility] Blood 03/31/2023 2:26 PM EDT 03/31/2023 2:30 PM EDT us Mandi Mcdonnell MD LAB BLOOD ORDERABLES Fin al Result [address] [address] * (ABNORMAL) C-Reactive Protein (03/31/2023 2:26 PM EDT) C REACTIVE PROTEIN 9.8(H) 0.0 - 4.0 mg/L [facility] Blood 03/31/2023 2:26 PM EDT 03/31/2023 2:30 PM EDT us Mandi Mcdonnell MD LAB BLOOD ORDERABLES Fin al Result Performing Organization Address [facility]/ZIP Co de Phone Number [address] [address] * (ABNORMAL) Parathyroid hormone (PTH) (03/31/2023 2:26 PM EDT) PARATHYROID HORMONE 70(H) 15 - 65 pg/mL [facility] Blood 03/31/2023 2:26 PM EDT 03/31/2023 2:30 PM EDT us Mandi Mcdonnell MD LAB BLOOD ORDERABLES Fin al Result Performing Organization Address City/[facility]/ZIP Co de Phone Number [address] [address] * 25-OH vitamin D (03/31/2023 2:26 PM EDT) 25 OH VIT D (TOTAL) 42 30 - 60 ng/mL [facility] Blood 03/31/2023 2:26 PM EDT 03/31/2023 2:30 PM EDT us Mandi Mcdonnell MD LAB BLOOD ORDERABLES Fin al Result Performing Organization Address City/State/[facility] Co de Phone Number [facility] [address] [place] [address] documented in this encounter Visit Diagnoses Diagnosis Age-related osteoporosis without current pathological fracture- Primary Vitamin D insufficiency documented in this encounter Care Teams Landfill Grader Relationship Specialty Start Date End Date Charlene Angulo MD [address] [place] [address] PCP - General Geriatric Psychiatry 10/29/21 documented as of this encounter Additional Source Comments The information contained in this document represents components of the legal health record. It is not the complete legal health record.[facility]
--- OUTSIDE RECORDS SUMMARY | 2025-03-27 12:51 | XMS_ITS | Encounter Summary ---
Author Organization [facility] Address [facility] [address] [place] [address] Phone Care Team Providers Care Vial Gauger Name Role Phone Charlene Angulo MD Primary Care Provid er Encounter Details Date Type Department Care Team (Late st Contact Info) Description 07/02/2024 Transcribe Orders [facility] Specimen Processing [address] [place] [address] Charlene Angulo MD [address] [place] [address] Social History Tobacco Use Types Packs/Day Years [...] Description 03/28/2025 1:00 PM EDT Office Visit [facility] Rheumatology [address] [place] [address] Mandi Mcdonnell MD [address] [facility], [address] [place] [address] [email or web address] 09/22/2025 11:40 AM EST Office Visit [facility] Endocrinology [address] [address] Marilin Arcos MD [address] [place] [address] [email or web address] documented as of this encounter Visit Diagnoses Not on filedocumented in this encounter Care Teams Vial Gauger Relationship Specialty Start Date End Date Charlene Angulo MD [address] [place] [address] PCP - General Geriatric Psychiatry 10/29/21 documented as of this encounter Additional Source Comments The information contained in this document represents components of the legal health record. It is not the complete legal health record.[facility]
--- OUTSIDE RECORDS SUMMARY | 2025-03-27 12:51 | XMS_ITS ---
Author Organization [facility] Address [address] [place] [address] Care Team Providers Care Toy Electric Train Repairer Name Role Phone AdeleCharlene Primary Care Provider Unavaila Noah Fried [phone] REASON FOR VISIT Same day cx Encounters Encounter Location Date Provider Diagnosis [facility] [address] [place] [address] 02/10/2025 Noah Obregon Plan Of Treatment No Information Progress Notes * Susy CRANEOB:1970 (54 yo F)Acc No.[id number]:02/10/2025 Patient:?Sharon CRANE :1970???Age:54 Y???Sex:Female Address:[address] [place], [address] * true * Date:? Generated for Printi ng/Faadilsong/eTransmitting on:?03/27/2025 12:50 PM EDT
--- OUTSIDE RECORDS SUMMARY | 2025-03-27 12:51 | XMS_ITS ---
Author Organization [facility] Address [address] [place] [address] Care Team Providers Care Yeast Fermentation Attendant Name Role Phone Charlene Angulo Primary Care Provider Noah Palomares Unavailable [phone] Encounters Encounter [facility] [address] [facility]/10/[facility]25 Noah Obregon Plan Of Treatment No Information Progress Notes * Susy CRANEOB:1970 (54 yo F)Acc No.[id number]:02/10/2025 Progress Note Patient:?Sharon CRANE Provider:?Noah Obregon DPM :1970???Age:54 Y???Sex:Female D ate:02/10/2025 Address:[address] [place], [place] [id number] Pcp:Charlene Angulo Subjective: * Chief Complaints: * ??? * Medical History:? Objective: * Vitals:? Assessment: Plan: * Treatment: * Images: * The named appointment provid er may or may not be the originator of this progress note, and it is not deemed complete until electronically signed by the appointment provider. Sign off status: Pending * Provider:?Noah Obregon DPM Date:?2024 Generated for Printi ng/Faadilsong/eTransmitting on:?03/27/2025 12:50 PM EDT
== END 2025-03-27 16:16 | disposition home or self-care (01) ==
LOC: HO.HSMS 11:47
PROVIDERS: PCP Internal Medicine Geriatric Medicine; Visit Provider Nurse Practitioner Family
DX: R41.89 Other symptoms and signs involving cognitive functions and awareness (principal); R47.89 Other speech disturbances; G43.709 Chronic migraine without aura, not intractable, without status migrainosus; R25.1 Tremor, unspecified; R56.9 Unspecified convulsions; R06.83 Snoring; G47.19 Other hypersomnia; G47.9 Sleep disorder, unspecified
CPT/HCPCS: 99214; G2211

== ENCOUNTER → 2025-03-27 11:47 | Outpatient (BNVA) | payer OTHER, SELFPAY | PROVIDERS: PCP Internal Medicine Geriatric Medicine; Visit Provider Nurse Practitioner Family ==

== ENCOUNTER → 2025-04-29 20:30 | Outpatient (BNV) | payer OTHER, SELFPAY | PROVIDERS: PCP Internal Medicine Geriatric Medicine; Visit Provider Psychiatry & Neurology Neurology | DX: R06.83 Snoring (principal) | CPT/HCPCS: 95810 ==

== ENCOUNTER → 2025-04-29 20:30 | Outpatient (REF) | payer OTHER, SELFPAY | LOC: HO.SL 20:30 | PROVIDERS: PCP Internal Medicine Geriatric Medicine; Visit Provider Nurse Practitioner Family | DX: G47.9 Sleep disorder, unspecified (principal); G47.19 Other hypersomnia; R06.83 Snoring; Z79.899 Other long term (current) drug therapy | CPT/HCPCS: 95810 ==

== ENCOUNTER 2025-09-05 12:18 | Outpatient (AMB) | payer OTHER, SELFPAY ==
--- NOTE | 2025-09-05 12:28 | A.OFFVIS_ITS ---
Vital Signs 09/05/25 12:29 Weight 204 lb BP 116/82 Blood Pressure Location Rt brachial Position Sitting Pulse 81 Pulse Source Pulse Oximeter Pulse Oximetry (%) 99 Oxygen Delivery Method Room Air Intake Visit Reasons: Switch Emgality to [employer] V[employer] Attendant Required: No Accompanied by: Self / Same As Patient Allergies baclofen Adverse Reaction (Unknown, Verified 09/05/25 12:32) Confusion topiramate (From Topamax) Adverse Reaction (Unknown, Verified 09/05/25 12:32) Confusion Medication List - Last Reconciled 09/05/25 by NANCI Pardo acetaminophen (Tylenol Extra Strength) 500 mg PO Q6H PRN albuterol sulfate 90 mcg/actuation inhalation amitriptyline 75 mg (1.5 x 50 mg) PO BEDTIME 30 days amlodipine 5 mg PO DAILY atorvastatin 20 mg PO DAILY carbidopa-levodopa 25-100 mg 1.5 tabs PO QID 30 days clonidine 1 patch transdermal QWEEK cyanocobalamin (vitamin B-12) 500 mcg PO DAILY 30 days cyclobenzaprine 5 mg PO BEDTIME denosumab (Prolia) mg subcut esomeprazole magnesium (Nexium) 40 mg PO DAILY estradiol 0.5 mg PO DAILY furosemide 20 mg PO DAILY gabapentin 600 mg PO TID 30 days galcanezumab-gnlm (Emgality Pen) 120 mg subcut Q30D 30 days levothyroxine 88 mcg PO DAILY levothyroxine 88 mcg PO DAILY losartan 25 mg PO DAILY lurasidone 120 mg PO DAILY lurasidone (Latuda) 40 mg PO DAILY medroxyprogesterone 2.5 mg PO DAILY methylphenidate HCl ER 40 mg PO DAILY olanzapine 40 mg PO DAILY oxcarbazepine (Trileptal) 300 mg (2 x 150 mg) PO BID 30 days propranolol 10 mg PO TID riboflavin (vitamin B2) 400 mg PO DAILY 30 days rizatriptan 5 - 10 mg (0.5 - 1 x 10 mg) PO Q2H PRN 21 days thiamine HCl (vitamin B1) 100 mg PO DAILY 30 days triamterene-hydrochlorothiazid 37.5-25 mg 1 cap PO DAILY venlafaxine ER 37.5 mg PO DAILY venlafaxine ER 75 mg PO DAILY [Vitamin D + K 650/12.5mcg PO DAILY] HPI Comments Details: 55-yr-old female presents for f/u visit to discuss adjusting her migraine treatment plan, in the setting of tremor, cognition, migraine, and seizure. She asks if it is possible to switch the Ajovy back to Emgality for migraine prevention, as now that she has been on it for some time, she feels that the Emgality was actually more effective. She states that on Ajovy, she is having 3-4 migraine attacks per month, more than she was previously having when on Emgality. She also reports more bothersome BUE arm numbness. Her tremor is intermittent. She also reports increased falls, 4 times in the last several weeks. Typically, she falls sideways, but once she fell backwards. Before each fall, she had stood up and walked forward, taking small steps as she approached the stairs. She felt frozen and then fell. On questioning, she thinks the falls may have occurred just before her next dose of CD-LD was due. One of the falls was associated with lightheadedness. She is trying to take enough fluids, but this can be not easy. She is again concerned about the interval [employer] SALES EXECUTIVE evaluation for dysphagia and voice therapy, which concluded that she would not benefit from speech therapy s ervices. She continues to be followed closely by her psychiatrist. 03/27/2025, HPI: She had a month long in-pt medical/psychiatric hospitalization from [facility] to [place]. She notes she is still prone to some paranoia and is hesitant to leave the house. She would like to revisit having in-lab sleep study, as she is very sleepy during the day- sometimes wonders if somebody is putting something in her tea, or maybe she is, but then she is not sure. She wonders if he has diffuse Lewy body dementia- recently saw a film regarding Brad Tyree. She is still working closely w/ her psychiatrist and therapist- and has signed consent for us to speak w/ her. Pt has reported she is continuing to have cognitive difficulties. Making medication mistakes while filling her med box- does not help w/ this. Pt underwent MEDICARE SALES EXECUTIVE eval- who did not feel that pt required MEDICARE SALES EXECUTIVE services. Thus, we referred pt for OT cognitive tx. She did start the vitamin B12 and D supplements, her she thinks that this was not resumed after her hospitalization. [facility] has authorized pt to have a patient advocate attend her medical appointments. Tremor is stable. States somebody told her that her dose of carbidopa levodopa is quite low. Continues to have difficulty with balance. However, has moved, so now has more ability to move freely. Has difficulty initiating turning to the left. No falls. Is hoping to try a new home PT. She states her headaches are more like tension headaches. Ajovy was switched Emgality d/t insurance preference, pt reports it is as effective as Ajovy. Continues to have > 30% in monthly migraine days since starting anti-CGRP MaB tx. She did start Oxcarbazapine. Recent serum Na level was normal. She saw a spine clinic for neck pain and was offered trigger point injections- she is considering. She has had one other gadiel vu episode since the fall. In Nov, she had one episode of full body shaking. She is compliant w/ oxcarbazapine. Previous seizure hx: In December 2023 pt reported episode of full body shakes with arms and legs all involved. which only lasted a moment. This was similar to a full body tics she started noticing last fall, but had worsened since started and then increased wellbutrin (started in Jul, used for smoking cessation). She had 15 episodes in Nov- lasting moments. January 2024 EEG was suggestive of seizure activity. She had 15 episodes in Jul 2023. She denies being able to suppress the episode, has no warning. Usually happens if very tired. Does not feel she could talk during the episode, but has not been witnessed. She has episodes of spacing out and being disassociating. She is not sure if this happens w/ the tic like episodes. Had 13 episodes in November- and none since she stopped Wellbutrin. She has not had any episodes since stopping Wellbutrin a week or 2 ago. Her son has been dx'd w/ absence seizures. Pt does not drive. Previous work-up: 01/30/24, IMPRESSION: This EEG is considered mildly abnormal due to intermittent sharp transients seen predominantly from the left temporal region, which could correlate with the seizure focusing the left temporal region. Clinical correlation is suggested. Note pt had not held Gabapentin prior to EEG. 10/23/2023, HST showed AHI 2.9/hr w/ O2 artis 82%, w/ SpO2 < 90% for 19% of the study. She was advised to undergo f/u in-lab PSG, which she was unable to do as her PT- 1 request was denied. Pt denies dx of COPD or asthma. Believes her PCP has recently referred her for pulmonology consult. REPLACED BY [facility] Medical History (Updated 09/14/25 @ 16:12 by NANCI Pardo) Anemia Overactive bladder Alcoholism Polyneuropathy Family History Mother Thyroid disease CHF (congestive heart failure) Afib PAD (peripheral artery disease) Maternal Grandfather HTN (hypertension) Paternal Grandmother Cancer Daughter No problems noted. Social History Alcohol intake: current Alcohol intake frequency: holidays/special occasions only Patient Tobacco Use Status: Current someday Tobacco user Cigarettes Per Day: 10 Years Smoked: 20 Substance Use Type: Marijuana Physical Exam Vital Signs: Last Vital Signs Pulse 81 09/05/25 12:29 BP 116/82 09/05/25 12:29 Pulse Ox 99 09/05/25 12:29 Oxygen Delivery Method Room Air 09/05/25 12:29 Const General: cooperative and no acute distress Orientation/consciousness: patient oriented x3 Resp Effort & Inspection: normal respiratory effort and able to speak in complete sentences Neuro Other: A&O x's 3 w/ mild STM lapses and intermittent word swapping. Mild decreased expression No BUE postural tremor appreciated today. FFM slightly decreased. Foot taps slightly decreased today. Stands slowly, decreased arm swing, shoulder dropped, shorter steps, multiple steps to turn. General: patient oriented x3 Cranial nerves: Yes CN's II-XII intact bilaterally Cognition (Neuro): normal cognition Motor exam (neuro): 5/5 motor strength present throughout Psych Appearance: grossly normal Mental Status: mental status grossly normal Speech and movement: Clear speech present Affect: normal affect Attitude: cooperative Assessment & Plan Assessment & Plan (1) Chronic migraine without aura: Code(s): G43.709 - Chronic migraine without aura, not intractable, without status migrainosus Category: Medical Qualifiers: Intractability: not intractable Status migrainosus presence: without status migrainosus Qualified Code(s): G43.709 - Chronic migraine without aura, not intractable, without status migrainosus (2) Cognitive dysfunction: Code(s): F09 - Unspecified mental disorder due to known physiological condition Category: Medical (3) Word finding difficulty: Code(s): R47.89 - Other speech disturbances Category: Medical (4) Tremor: Comment: ? chronic neuroleptic exposure. 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 Code(s): R25.1 - Tremor, unspecified Category: Medical (5) Seizure: Comment: Episodes of involuntary movements- Likely induced by Bupropion use. Code(s): R56.9 - Unspecified convulsions Category: Medical (6) Involuntary movements: Code(s): R25.9 - Unspecified abnormal involuntary movements Category: Medical (7) Snoring: Code(s): R06.83 - Snoring Category: Medical (8) Sleep difficulties: Code(s): G47.9 - Sleep disorder, unspecified Category: Medical Plan For increased falls in the setting of neuroleptic induced movement disorders and RLS s/s: * Previous autoimmune encephalitis lab results- normal. * Discontinue CD-LD 25-100mg 1.5 - 1 - 1.5 - 1 tab(s) order. * Start carbidopa-levodopa IR 25-100 m tabs 4 times per day. * Advised to monitor for potential adverse effects, such as GI upset, orthostatic lightheadedness, increase hallucinations, dyskinesias * Advised to notify her psychiatrist of this change * Increase fluids to at least 64-80 fluid oz per day, including 16-24 fluid oz of electrolyte replacement beverage, such as Gatorade or Powerade or liquid IV. * Discussed simple strategies to break freezing episodes and advised to turn with her upper and lower body and alignment * We will request home PT eval and treat, for gait, falls, home safety eval. * Patient is homebound due to requires assistance to leave her home, due to high-risk for falls, gait difficulty, cognitive difficulties. For cognition difficulties: 08/10/2024, Brain MRI w/o: Minimal nonspecific white matter changes most commonly seen with mild underlying microangiopathy. Re-reviewed MEDIC[employer] SALES EXECUTIVE evaluation- respectfully disagree that patient does not have insight or capacity to benefit from structured cognitive therapy program. Upon review, consider resuming vitamin-D and vitamin B12 supplements. Future considerations: Trial of Namenda- which may help headaches as well. For transient episodes of involuntary movements: Previous EEG: mildly abnormal due to intermittent sharp transients seen predominantly from the left temporal region. These episodes occurred while pt was on Bupropion, which can lower seizure threshold. Thus, it is likely that the Bupropion use did induce seizure activity. Pt advised to avoid using Bupropion in the future. Pt has had additional episode which appears c/w seizure activity. Continue Oxcarbazepine 300mg bid- ordered for facial pain initially. For sleep difficulties: Previous HST- AHI 2.9/hr w/ O2 artis 82%, w/ SpO2 < 90% for 19% of the study. Reviewed 04/29/2025, in-lab PSG:? Showed no evidence of obstructive or central sleep apnea, or significant movement disorder of sleep. ?AHI 2 per hour, O2 artis 80%, with average SpO2 92%, SpO2 under 88% for 22 minutes of study time. ?Periodic limb movement of sleep (PLMS) 6 per hour with PLMS arousal index 1.2 per hour. Results of sleep study were sent to the patient's shoeshiner, at [place]. For facial pain and paresthesias: Continue oxcarbamazepine 300 mg bid. Pt aware we will need to monitor WBC and Na + levels. Continue Gabapentin 600mg tid. Check CBC and CMP. For chronic migraine occipital-cervical pain prevention: Discontinue Ajovy, as this has not been as effective as Emgality previously was. Start Emgality 120mg/ml auto-injection: * Loading dose: 240mg (2 120mg/ml auto-injections) via subcutaneous injection in 2 different sites). * Then 30 days after loading dose, start Maintenance dose: 120mg (120mg/ml autoinjector) subcutaneous injection every month. Continue?amitriptyline 75 mg q.h.s.- could consider reducing this future, as this may be negatively impacting mood and cognition. Continue cyclobenzaprine 5 mg at bedtime as needed Follow-up with pain management as scheduled Previous migraine prevention trials- topiramate- caused confusion, depakote- not tolerated, tegretol/trileptal- electrolyte disturbance in setting of polypharmacy, and lisinopril- ineffective. Botox- was not tolerated and was ineffective. Migraine tx contraindications: Would avoid BBs- as pt is currently on amlodipine w/ low and on multiple medications that can induce orthostatic hypotension- such as carbidolopa-levodopa, rexulti Future considerations: indomethacin for stabbing LOPEZ. For acute migraine treatment: Continue rizatriptan as needed. Continue as needed Aleve or Advil at headache onset Tylenol prn at onset of stabbing headache. ?Will follow-up upon review of above and patient to follow-up in clinic in 6 months or sooner prn. 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 120 mg subcut Q30D 30 days 1 mL 6RF G43.009 - Migraine without aura, not intractable, without status migrainosus To galcanezumab-gnlm (Emgality Pen) 240mg loading dose to be f/b 120mg monthly maintenance dose, subcu q.month. 240 mg (2 mL) subcut ONCE 2 mL 0RF 30 days G43.009 - Migraine without aura, not intractable, without status migrainosus Coding Level of Care Code Est Pt Level 4 (87434) Complex EM visit Add On G2211 Diagnoses Chronic migraine without aura without status migrainosus, not intractable G43.709 Intractability: not intractable Status migrainosus presence: without status migrainosus Cognitive dysfunction F09 Word finding difficulty R47.89 Tremor R25.1 Seizure R56.9 Involuntary movements R25.9 Snoring R06.83 Sleep difficulties G47.9
[2025-09-05 12:29] VITALS: BP 116/82; PULSE 81; O2SAT 99
== END 2025-09-05 13:22 | disposition home or self-care (01) ==
LOC: HO.HSMS 12:19
PROVIDERS: PCP Internal Medicine Geriatric Medicine; Visit Provider Nurse Practitioner Family
DX: G43.709 Chronic migraine without aura, not intractable, without status migrainosus (principal); R41.89 Other symptoms and signs involving cognitive functions and awareness; R47.89 Other speech disturbances; R25.1 Tremor, unspecified; R56.9 Unspecified convulsions; R25.9 Unspecified abnormal involuntary movements; R06.83 Snoring; G47.9 Sleep disorder, unspecified
CPT/HCPCS: 99214; G2211

== ENCOUNTER → 2025-09-05 12:18 | Outpatient (BNVA) | payer OTHER, SELFPAY | PROVIDERS: PCP Internal Medicine Geriatric Medicine; Visit Provider Nurse Practitioner Family | DX: G43.709 Chronic migraine without aura, not intractable, without status migrainosus (principal); R25.1 Tremor, unspecified; R47.89 Other speech disturbances; R56.9 Unspecified convulsions; R25.9 Unspecified abnormal involuntary movements; R06.83 Snoring; G47.9 Sleep disorder, unspecified | CPT/HCPCS: 99212 ==

== ENCOUNTER 2025-09-17 11:31 | Outpatient (REF) | payer OTHER, SELFPAY ==
--- OUTSIDE RECORDS SUMMARY | 2024-10-30 07:00 | XMS_ITS ---
Author Organization [facility] Address [address] [place] [address] Care Team Providers Care Sales Clerk Supervisor Name Role Phone Charlene Angulo Primary Care Provider Unavaila Noah Fried Unavailable [phone] Encounters Encounter Location Date [facility] [address] [place] [id number] 10/30/2024 Noah Obregon Plan Of Treatment No Information Progress Notes * Susy CRANEOB:1970 (55 yo F)Acc No.[id number]:10/30/2024 Progress Note Patient: Sharon L[address] Provider: Rupinder Obregon DPM :1970 A ge:54 Y S ex:Female Date:10/30/2024 Address:[address] [place] [address] Pcp:Charlene Angulo Subjective: * Chief Complaints: * * Medical History: Objective: * Vitals: Assessment: Plan: * Treatment: * Images: * The named appointment provid er may or may not be the originator of this progress note, and it is not deemed complete until electronically signed by the appointment provider. Sign off status: Pending * Provider: Rupinder Obregon DPM Date: 12/31/2023 Generated for Shadyi ng/Faadilsong/eTransmitting on: 11/17/2024 02:12 PM EST
--- OUTSIDE RECORDS SUMMARY | 2025-02-10 09:00 | XMS_ITS ---
Author Organization [facility] Address [address] [place] [address] Care Team Providers Care Greens Planter Name Role Phone Charlene Angulo Primary Care Provider Unavaila Noah Fried Unavailable [phone] Encounters Encounter Location Date Provider [facility] [address] [place] [phone] 02/10/2025 Noah Obregon Plan Of Treatment No Information Progress Notes * Susy CRANEOB:1970 (55 yo F)Acc No.[id number]:02/10/2025 Progress Note Patient: Sharon L[address] Provider: Rupinder Obregon DPM :1970 A ge:54 Y S ex:Female Date:02/10/2025 Address:[address] [place] [address] Pcp:Charlene Angulo Subjective: * Chief Complaints: * * Medical History: Objective: * Vitals: Assessment: Plan: * Treatment: * Images: * The named appointment provid er may or may not be the originator of this progress note, and it is not deemed complete until electronically signed by the appointment provider. Sign off status: Pending * Provider: Rupinder Obregon DPM Date: 0 02/10/2025 Generated for Printi ng/Faadilsong/eTransmitting on: 11/17/2024 02:13 PM EST
--- OUTSIDE RECORDS SUMMARY | 2025-04-22 08:30 | XMS_ITS ---
Author Organization [facility] Address [address] [place] [address] Care Team Providers Care Metal Pattern Maker Name Role Phone Charlene Angulo Primary Care Provider Unavaila Noah Fried Unavailable [phone] Safia Mcintyre [phone] Batista Encounters Encounter Location Date [facility] [address] [place] [address] 04/22/2025 Safia Mcintyre Plan Of Treatment No Information Progress Notes * Susy CRANEOB:1970 (55 yo F)Acc No.[id number]:04/22/2025 Progress Note Patient: Sharon LANE Provider: Sushma Mcintyre DPM :1970 A ge:54 Y S ex:Female Date:04/22/2025 Address:[address] [place], [place] [id number] Pcp:Charlene Angulo Subjective: * Chief Complaints: * [address] Batista[address] * Medical History: Objective: * Vitals: Assessment: Plan: * Treatment: * Images: * The named appointment provid er may or may not be the originator of this progress note, and it is not deemed complete until electronically signed by the appointment provider. Sign off status: Pending * Provider: Sushma Mcintyre DPM Date: 0 04/22/2025 Generated for Apolinar sroiano/Vandana/eTransmitting on: 1 11/17/2024 02:13 PM EST
--- OUTSIDE RECORDS SUMMARY | 2025-09-11 22:59 | XMS_ITS | Continuity of Care Document ---
Author Organization [facility] Address [address] [place] [id number] Support Name Relationship Address Phone CONSTANTINO BARRON Unknown Unavailable CRANE, KRYSTLE Personal Relationship Unknown Unava ilable CRANE, DOMINIQUE spouse Unknown Unavailable CRANE, DOMINIQUE E Personal Relationship Unknown Dalia vailable NONE, GIVEN Other Unknown Unavailable CRANE, DOMINIQUE spouse Unknown Unavailable CRANE, DOMINIQUE spouse Unknown Unavailable CRANE, DOMINIQUE Personal Relationship Unknown Unava ilable CRANE, DOMINIQUE Personal Relationship Unknown Unava ilable CRANE, DOMINIQUE A spouse Unknown Unavailable CRANE, DOMINIQUE Personal Relationship Unknown Unava ilable CRANE, DOMINIQUE Personal Relationship Unknown Unava ilable CRANE, KRYSTLE A Personal Relationship Unknown Dalia vailable CRANE, DOMINIQUE spouse Unknown Unavailable CRANE, DOMINIQUE A Personal Relationship Unknown Dalia vailable CRANE JR, DOMINIQUE Personal Relationship Unknown Un available CRANE, DOMINIQUE E Personal Relationship Unknown Dalia vailable CRANE, KRYSTLE Personal Relationship Unknown Unava ilable CRANE, KRYSTLE A Personal Relationship Unknown Dalia vailable CRANE, DOMINIQUE Personal Relationship Unknown Unava ilable CRANE, DOMINIQUE Personal Relationship Unknown Unava ilable CRANE, DOMINIQUE Personal Relationship Unknown Unava ilable CRANE, DOMINIQUE A spouse Unknown Unavailable CRANE, DOMINIQUE Other Unknown Unavailable CRANE, DOMINIQUE A spouse Unknown Unavailable CRANE, DOMINIQUE Personal Relationship Unknown Unava ilable CRANE, DOMINIQUE E Personal Relationship Unknown Dalia vailable Care Team Providers Care Roller Printer Name Role Phone Massiel Rodriguez Primary Care Physician Encounter [facility] Date(s): 08/12/25 - 09/11/[address] [address]- Attending Physician: AdmtrZeb Admitting Physician: Admtr, Ar8 Referring Physician: Zeb Mello Encounter Type: Triage Allergies, Adverse Reactions, Alerts Substance Criticality Severity Reaction Reaction Severity Status predniSONE Emotional labil ity Angie Active rOPINIRole psychosis Active baclofen confusion, dizziness Active Topamax confusion,dizzi ness Baclofen Active topiramate confusion, dizz iness Topiramate Active Immunizations Given and Recorded Vaccine Date Status Refusal Reason influenza virus vaccine, inactivated 09/26/23 Micheal rded influenza virus vaccine, inactivated 01/24/22 Give n influenza virus vaccine, inactivated 10/31/14 Micheal rded SARS-CoV-2(COVID-19)mRNA-LNP vac([id number]) 09/26/23 Recorded SARS-CoV-2 (COVID-19) mRNA-1273 vaccine 10/04/21 R ecorded SARS-CoV-2 (COVID-19) mRNA-1273 vaccine 01/06/21 R ecorded SARS-CoV-2 (COVID-19) mRNA-1273 vaccine 12/09/20 R ecorded zoster vaccine, inactivated 09/11/20 Recorded zoster vaccine, inactivated 1 09/08/20 Recorded Influenza Virus Vaccine (oldterm) 08/19/20 Recorde d Influenza Virus Vaccine (oldterm) 09/06/19 Recorde d Influenza Virus Vaccine (oldterm) 01/14/19 Recorde d Influenza Virus Vaccine (oldterm) 08/31/14 Recorde d Influenza Virus Vaccine (oldterm) 08/28/12 Recorde d Influenza Virus Vaccine (oldterm) 08/15/11 Recorde d tetanus-diphtheria toxoids (Td) 11/24/15 Recorded tetanus/diphtheria/pertussis, acel(Tdap) 11/24/15 Recorded tetanus/diphtheria/pertussis, acel(Tdap) 08/15/11 Recorded 1Result Comment: [facility] Albuterol (Eqv-ProAir HFA) 90 mcg/inh inhalation aerosol 2 puffs, Inhalation, Every 6 hours, PRN NEEDED FOR WHEEZING AND SHORTNESS OF BREATH, # 8.5 Gm, 5Refills, Maintenance, 06/10/24 10:23:00 AM EDT, [id number], 20, INHALE 2 PUFFS EVERY 6 HOURS NEEDED FOR WHEEZING AND SHORTNESS OF BREATH, 163, cm, 06/04/24 15:05:00 EDT, Height, 102.2, kg, 04/24/24 13:11:00 EDT, Dry Weight Start Date: 06/10/24 Status: Ordered Medication Dispense Status: Completed Quantity: 8.5 Unit: g Total Allowed Fills: 1 Fills Dispensed: 0 amitriptyline 50 mg oral tablet 1.5 tablet = 75 mg, By Mouth, Daily at bedtime, # 90 tablet, 0 Refills, Maintenance, 12/26/24 10:29:00 PM EST, Tablet, Partial fill upon patient request if the prescription is for a schedule II opioiddrug. Start Date: 12/26/24 Status: Ordered Medication Dispense Status: Completed Quantity: 90.0 Unit: tablet Total Allowed Fills: 1 Fills Dispensed: 0 amLODIPine 5 mg oral tablet 1 tablet, By Mouth, Daily, ^1R2., # 30 tablet, 5 Refills, Maintenance, 06/26/25 7:10:00 AM EDT, [facility], 161, cm, 06/03/25 10:48:00 EDT, Height, 91.6, kg, 12/28/24 6:27:00 EST, Dry Weight Start Date: 06/26/25 Status: Ordered Medication Dispense Status: Completed Quantity: 30.0 Unit: tablet Total Allowed Fills: 1 Fills Dispensed: 0 Ankle Support See Instructions, # 1 each, Maintenance, DX: M25.571. Use when up, to improve ankle support, 05/01/23 8:24:00 AM EDT, Supply Start Date: 05/01/23 Status: Ordered Medication Dispense Status: Completed Quantity: 1.0 Unit: each Total Allowed Fills: 1 Fills Dispensed: 0 Indications: Pain in right ankle and joints of right foot; atorvastatin 20 mg oral tablet 1 tablet, By Mouth, Daily, # 90 tablet, 1 Refills, Maintenance, 08/14/25 2:37:00 PM EDT, [facility], 161, cm, 08/04/25 14:14:00 EDT, Height, 90.2, kg, 08/04/25 14:14:00 EDT, Dry Weight Start Date: 08/14/25 Status: Ordered Medication Dispense Status: Completed Quantity: 90.0 Unit: tablet Total Allowed Fills: 2 Fills Dispensed: 0 BLOOD PRESSURE MACHINE BLOOD PRESSURE MACHINE, See Instructions, # 1 each, Refills 0, Tot. Refills 0, Maintenance, USE DIRECTED, 07/12/21 4:21:00 PM EDT, Supply, 162, cm, 07/12/21 10:52:00 EDT, Height, 88.7, kg, 07/10/2114:47:00 EDT, Dry Weight Start Date: 07/12/21 Status: Ordered Medication Dispense Status: Completed Quantity: 1.0 Unit: each Total Allowed Fills: 1 Fills Dispensed: 0 Indications: Essential (primary) hypertension; carbidopa-levodopa 25 mg-100 mg oral tablet 1 tablet, By Mouth, 3 times a day, # 240 tablet, 0 Refills, Maintenance, 12/27/24 10:08:00 PM EST, Tablet, Partial fill upon patient request if the prescription is for a schedule II opioid drug. Start Date: 12/27/24 Status: Ordered Medication Dispense Status: Completed Quantity: 240.0 Unit: tablet Total Allowed Fills: 1 Fills Dispensed: 0 Catheter Supplies See Instructions, # 90 each, Maintenance, Perform straight catheterization 3 times daily, 10/12/22 4:33:00 PM EST, DX Urinary retention after surgery. Catheters that are 8 inches in length., Supply Start Date: 10/12/22 Status: Ordered Medication Dispense Status: Completed Quantity: 90.0 Unit: each Total Allowed Fills: 1 Fills Dispensed: 0 cetirizine 10 mg oral tablet 1 tablet = 10 mg, By Mouth, Daily, # 90 tablet, 1 Refills, Maintenance, 09/04/25 2:16:00 PM EDT, Tablet, [facility], Partial fill upon patient request if the prescription is for a schedule IIopioid drug., 161, cm, 09/04/25 14:04:00 EDT, Height, 93.7, kg, 09/04/25 14:04:00 EDT, Dry Weight Start Date: 09/04/25 Status: Ordered Medication Dispense Status: Completed Quantity: 90.0 Unit: tablet Total Allowed Fills: 2 Fills Dispensed: 0 cholecalciferol 5000 intl units oral capsule 1 capsule = 125 mcg, By Mouth, Daily, with food, # 100 capsule, 0 Refills, Maintenance, 07/31/25 12:32:00 AM EDT, Capsule, [facility], Partial fill upon patient request if the prescription is for a schedule II opioid drug., 161, cm, 07/29/25 11:28:00 EDT, Height, 91.6, kg, 12/28/24 6:27:00 EST, Dry Weight Start Date: 07/31/25 Status: Ordered Medication Dispense Status: Completed Quantity: 100.0 Unit: capsule Total Allowed Fills: 1 Fills Dispensed: 0 Indications: Vitamin D deficiency, unspecified; clonazePAM 0.5 mg oral tablet 1 tablet = 0.5 mg, By Mouth, 2 times a day, PRN Anxiety, 0 Refills, Maintenance, 12/27/24 10:00:00 PM EST, Tablet, Partial fill upon patient request if the prescription is for a schedule II opioid drug. Start Date: 12/27/24 Status: Ordered Medication Dispense Status: Completed Total Allowed Fills: 1 Fills Dispensed: 0 Compression Stockings See Instructions, # 4 each, Maintenance, 2 pair. surgical, knee length 20-30 mm Hg. DX: I87.2. Sig:Use daily for leg swelling., 08/19/24 2:44:00 PM EDT, Supply Start Date: 08/19/24 Status: Ordered Medication Dispense Status: Completed Quantity: 4.0 Unit: each Total Allowed Fills: 1 Fills Dispensed: 0 cyclobenzaprine 5 mg oral tablet 1 tablet = 5 mg, By Mouth, 3 times a day, PRN Spasm, # 150 tablet, 1 Refills, Maintenance, 06/27/25 7:05:00 AM EDT, [facility], Partial fill upon patient request if the prescription is for a schedule II opioid drug., 161, cm, 06/03/25 10:48:00 EDT, Height, 91.6, kg, 12/28/24 6:27:00 EST, DryWeight Start Date: 06/27/25 Status: Ordered Medication Dispense Status: Completed Quantity: 150.0 Unit: tablet Total Allowed Fills: 2 Fills Dispensed: 0 Donning device Donning device, See Instructions, # 1 each, Refills 1, Tot. Refills 1, Maintenance, DX peripheral edema I87.2 use as directed for compression stockings, 09/03/24 12:02:00 PM EDT, Supply Start Date: 09/03/24 Status: Ordered Medication Dispense Status: Completed Quantity: 1.0 Unit: each Total Allowed Fills: 2 Fills Dispensed: 0 Donning device for compression stockings Donning device for compression stockings, See Instructions, # 1 each, Refills 0, Tot. Refills 0, Maintenance, Use daily to help apply compression stockings., 06/04/24 3:31:00 PM EDT, Supply Start Date: 06/04/24 Status: Ordered Medication Dispense Status: Completed Quantity: 1.0 Unit: each Total Allowed Fills: 1 Fills Dispensed: 0 Indications: Venous insufficiency (chronic) (peripheral); Emgality Prefilled Pen 120 mg/mL subcutaneous solution PLEASE SEE ATTACHED FOR DETAILED DIRECTIONS Start Date: 12/26/24 Status: Ordered Medication Dispense Status: Completed Total Allowed Fills: 1 Fills Dispensed: 0 esomeprazole 40 mg oral enteric coated capsule 1 capsule = 40 mg, By Mouth, Daily, # 90 capsule, 1 Refills, Maintenance, 04/22/25 2:23:00 PM EDT, EC Capsule, [facility], Partial fill upon patient request if the prescription is for a schedule II opioid drug., 161, cm, 04/09/25 17:32:00 EDT, Height, 91.6, kg, 12/28/24 6:27:00 EST, Dry Weight Start Date: 04/22/25 Status: Ordered Medication Dispense Status: Completed Quantity: 90.0 Unit: capsule Total Allowed Fills: 2 Fills Dispensed: 0 FLUoxetine 20 mg oral capsule 20 mg, 1, capsule, By Mouth, Daily, # 30 capsule, Refills 0, Maintenance, 12/27/24 9:48:00 PM EST, Partial fill upon patient request if the prescription is for a schedule II opioid drug. Start Date: 12/27/24 Status: Ordered Medication Dispense Status: Completed Quantity: 30.0 Unit: capsule Total Allowed Fills: 1 Fills Dispensed: 0 fluticasone 50 mcg/inh nasal spray 2 sprays = 100 mcg, Nares, Both, Daily, # 16 Gm, 0 Refills, Maintenance, 12/26/24 10:33:00 PM EST, [place], Partial fill upon patient request if the prescription is for a schedule II opioid drug. Start Date: 12/26/24 Status: Ordered Medication Dispense Status: Completed Quantity: 16.0 Unit: g Total Allowed Fills: 1 Fills Dispensed: 0 gabapentin 600 mg oral tablet 1 tablet = 600 mg, By Mouth, 3 times a day Start Date: 06/25/23 Status: Ordered Medication Dispense Status: Completed Total Allowed Fills: 1 Fills Dispensed: 0 hydrochlorothiazide-triamterene 25 mg-37.5 mg oral capsule 1 capsule, By Mouth, Daily, PRN NEEDED FOR SWELLING, # 90 capsule, 1 Refills, Maintenance, 07/15/25 12:34:00 PM EDT, [facility], 90, 1 capsule By Mouth Daily,PRN: NEEDED FOR SWELLING, 161,cm, 06/03/25 10:48:00 EDT, Height, 91.6, kg, 12/28/24 6:27:00 EST, Dry Weight Start Date: 07/15/25 Status: Ordered Medication Dispense Status: Completed Quantity: 90.0 Unit: capsule Total Allowed Fills: 2 Fills Dispensed: 0 Knee Support See Instructions, # 1 each, Maintenance, DX: M25.561. Compression sleeve. Use when up to support knee, 05/01/23 8:24:00 AM EDT, Supply Start Date: 05/01/23 Status: Ordered Medication Dispense Status: Completed Quantity: 1.0 Unit: each Total Allowed Fills: 1 Fills Dispensed: 0 Indications: Pain in right knee; Lasix 20 mg oral tablet 20 mg, 1, tablet, By Mouth, Every Monday, Monday and Monday, PRN, leg edmea, # 39 tablet, Refills 1, Tot. Refills 1, Maintenance, Other, 07/15/25 12:35:00 PM EDT, Route to Pharmacy Electronically, [facility], Partial fill upon patient request if the prescription is for a schedule II opioiddrug., 161, cm, 06/03/25 10:48:00 EDT, Height, 91.6, kg, 12/28/24 6:27:00 EST, Dry Weight Start Date: 07/15/25 Status: Ordered Medication Dispense Status: Completed Quantity: 39.0 Unit: tablet Total Allowed Fills: 2 Fills Dispensed: 0 levothyroxine 0.088 mg oral tablet 1 tablet, By Mouth, Daily, # 90 tablet, 1 Refills, Maintenance, 07/29/24 2:57:00 PM EDT, [facility] #[id number], 163, cm, 07/25/24 12:21:00 EDT, Height, 102.2, kg, 04/24/24 13:11:00 EDT, Dry Weight Start Date: 07/29/24 Status: Ordered Medication Dispense Status: Completed Quantity: 90.0 Unit: tablet Total Allowed Fills: 2 Fills Dispensed: 0 losartan 25 mg oral tablet 25 mg, 1, tablet, By Mouth, Daily, Do not take if SPB less 130, # 90 tablet, Refills 1, Tot. Refills 1, Maintenance, 07/15/25 12:35:00 PM EDT, Route to Pharmacy Electronically, [facility], Partial fill upon patient request if the prescription is for a schedule II opioid drug., 161, cm, 06/03/25 10:48:00 EDT, Height, 91.6, kg, 12/28/24 6:27:00 EST, Dry Weight Start Date: 07/15/25 Status: Ordered Medication Dispense Status: Completed Quantity: 90.0 Unit: tablet Total Allowed Fills: 2 Fills Dispensed: 0 Lubricating jelly tube Lubricating jelly tube, See Instructions, # 2 each, Refills 0, Tot. Refills 0, Maintenance, DX Urinary retention, 10/12/22 4:43:00 PM EST, Supply Start Date: 10/12/22 Status: Ordered Medication Dispense Status: Completed Quantity: 2.0 Unit: each Total Allowed Fills: 1 Fills Dispensed: 0 Indications: Other postprocedural complications and disorders of genitourinary system; methylphenidate 20 mg/8 hr oral tablet, extended release 30 mg, 1.5, tablet, By Mouth, Daily, Refills 0, Tot. Refills 0, Maintenance, 12/26/24 10:28:00 PM EST, Partial fill upon patient request if the prescription is for a schedule II opioid drug. Start Date: 12/26/24 Status: Ordered Medication Dispense Status: Completed Total Allowed Fills: 1 Fills Dispensed: 0 olanzapine 5 mg oral tablet, disintegrating = 5 mg, By Mouth, 2 times a day, PRN Other, hallucination or agitation, # 30 tablet, 0 Refills, Maintenance, 12/31/24 7:54:00 AM EST, [facility] Tablet, Partial fill upon patient request if the prescription is for a schedule II opioid drug. Start Date: 12/31/24 Stop Date: 01/30/25 Status: Ordered Medication Dispense Status: Completed Quantity: 30.0 Unit: tablet Total Allowed Fills: 1 Fills Dispensed: 0 Overnight Oximetry ([employer]) Overnight Oximetry ([employer]), See Instructions, # 1 each, Refills 0, Tot. Refills 0, Maintenance, Please perform overnight oximetry test on room air Dx: Paraseptal Emphysema J43.8, 09/09/22 5:33:00 PM EDT, Supply Start Date: 09/09/22 Status: Ordered Medication Dispense Status: Completed Quantity: 1.0 Unit: each Total Allowed Fills: 1 Fills Dispensed: 0 Indications: Other emphysema; OXcarbazepine 150 mg oral tablet Refills 0, Maintenance, 04/17/25 3:16:00 PM EDT, Partial fill upon patient request if the prescription is for a schedule II opioid drug. Start Date: 04/17/25 Status: Ordered Medication Dispense Status: Completed Total Allowed Fills: 1 Fills Dispensed: 0 Prolia 60 mg/mL subcutaneous solution 1 mL = 60 mg, Subcutaneous Injection, Every 6 months, # 1 mL, 0 Refills, Maintenance, 09/19/23 4:16:00 PM EST, Solution, Partial fill upon patient request if the prescription is for a schedule II opioid drug. Start Date: 09/19/23 Status: Ordered Medication Dispense Status: Completed Quantity: 1.0 Unit: mL Total Allowed Fills: 1 Fills Dispensed: 0 propranolol 10 mg oral tablet Refills 0, Maintenance, 04/17/25 3:17:00 PM EDT, Partial fill upon patient request if the prescription is for a schedule II opioid drug. Start Date: 04/17/25 Status: Ordered Medication Dispense Status: Completed Total Allowed Fills: 1 Fills Dispensed: 0 Shower Chair See Instructions, # 1 each, Refills 0, Tot. Refills 0, Maintenance, 1 Shower Chair. For Life. Dx: Chronic low back pain (M54.4), Fibromyalgia (M9.7), Cognitive Impairment (G31.84), 12/29/20 7:07:00 AMEST, Supply Start Date: 12/29/20 Status: Ordered Medication Dispense Status: Completed Quantity: 1.0 Unit: each Total Allowed Fills: 1 Fills Dispensed: 0 Tylenol Extra Strength 500 mg oral tablet 2 tablet = 1,000 mg, By Mouth, 2 times a day, PRN for fever, # 120 tablet, 0 Refills, Maintenance, 02/16/23 1:26:00 PM EDT, Tablet, Partial fill upon patient request if the prescription is for a schedule II opioid drug. Start Date: 02/16/23 Status: Ordered Medication Dispense Status: Completed Quantity: 120.0 Unit: tablet Total Allowed Fills: 1 Fills Dispensed: 0 Vitamin B1 Daily, 0 Refills, Maintenance, 06/03/25 10:48:00 AM EDT, Partial fill upon patient request if the prescription is for a schedule II opioid drug. Start Date: 06/03/25 Status: Ordered Medication Dispense Status: Completed Total Allowed Fills: 1 Fills Dispensed: 0 Vitamin B12 0 Refills, Maintenance, 06/03/25 10:48:00 AM EDT, Partial fill upon patient request if the prescription is for a schedule II opioid drug. Start Date: 06/03/25 Status: Ordered Medication Dispense Status: Completed Total Allowed Fills: 1 Fills Dispensed: 0 Wixela Inhub 250 mcg-50 mcg inhalation powder 1 inhalation, Inhalation, 2 times a day, rinse mouth and throat after use, 0 Refills, Maintenance, 12/26/24 10:34:00 PM EST, Powder, Partial fill upon patient request if the prescription is for a schedule II opioid drug. Start Date: 12/26/24 Status: Ordered Medication Dispense Status: Completed Total Allowed Fills: 1 Fills Dispensed: 0 Problem List Condition Confirmation Course Effective Dates Status Health Status Informant Bilateral ankle pain Confirmed Active Anxiety Confirmed Active Bipolar disorder Confirmed Active Bone pain Confirmed Active Pain in both tibiae Confirmed Active Thrush Confirmed Active Chronic pain Confirmed Active Hair disorder Confirmed Active Leg edema Confirmed Active Essential hypertension Confirmed Active Sialorrhea Confirmed Active Fibromyalgia Confirmed Active Tongue burning sensation Confirmed Active Bilateral hand pain Confirmed Active Hyperlipidemia Confirmed Active 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 Active 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 Cognitive impairment Confirmed Active Psychomotor retardation Confirmed Active Intercostal neuralgia Confirmed Active Chronic joint pain Confirmed Active Bilateral knee pain Confirmed Active Mood disorder Confirmed Active Neck muscle spasm Confirmed Active Neck pain Confirmed Active Cigarette nicotine dependence, uncomplicated Confirmed Active Osteoporosis Confirmed Active Right arm pain Confirmed Active Bilateral arm pain Confirmed Active Right wrist pain Confirmed Active Paraseptal emphysema Confirmed Active Annual physical exam Confirmed Active Frequent falls Confirmed Active MDD (major depressive disorder), recurrent episode, moderate Confirmed Active Restless legs syndrome Confirmed Active Secondary hyperparathyroidism Confirmed Active Severe obesity (BMI 35.0-39.9) with comorbidity Confirmed Active 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 Smoking Status 10 or more cigarette s (1/2 pack or more)/day in last 30 days entered on: 04/24/24 Sex Female Sex Representation Female (finding) Patient Care team information Care Team Personnel Name: Geovanna An NP Position: [facility] Associate Professional Member Role: Primary Care Nurse Address: [address] [place] [address] [place] [address]- Telecom: Name: Wendy Kang RN Position: [facility] RN Member Role: Primary Care Nurse Name: Marilin Peck RN Position: [facility] RN Member Role: Primary Care Nurse Name: Razia Aponte RN Position: [facility] RN Member Role: Primary Care Nurse Name: Brenda Fung Position: S Outreach Member Role: Lifetime Consulting Physician Name: Massiel Rodriguez Position: [facility] PCO Associate Professional Member Role: PCP Address: [address] [place] [id number] Telecom: Care Team Related Persons Name: CONSTANTINO BARRON Name: NONE, GIVEN Name: DOMINIQUE CRANE Name: DOMINIQUE CRANE Insurance Providers Guarantor name: KRYSTLE CRANE Health Plan Information #: 1 Payer: [facility] Payer Identifier: NA Member Number: [id number] Group Number: [id number] Subscriber Identifier: NA Relationship to Subscriber: self Coverage Type: Medicare Managed Care (Includes Medicare Advantage Plans) Coverage Verification Date: NA Telecom: NA Address: NA
--- OUTSIDE RECORDS SUMMARY | 2025-09-11 22:59 | XMS_ITS | Continuity of Care Document ---
Author Organization [facility] [place] Address [address] [place] [address]- Support Name Relationship Address Phone CONSTANTINO BARRON [...] Unknown Dalia vailable Care Team Providers Care Consultant In Ergonomics And Safety Name Role Phone Masseil Rodriguez Primary Care Physician Encounter [facility] Date(s): 08/12/25 - 09/11/25 [facility] [address] [place] [address]- Encounter Type: Triage Allergies, Adverse Reactions, Alerts Substance Criticality Severity Reaction Reaction Severity Status predniSONE Emotional labil ity Angie Active baclofen confusion, dizziness Active topiramate confusion, dizz iness Topiramate Active Topamax confusion,dizzi ness Baclofen Active rOPINIRole psychosis Active Immunizations Given and Recorded Vaccine Date Status Refusal Reason influenza virus vaccine, inactivated 09/26/23 Micheal rded influenza virus vaccine, inactivated 01/24/22 Give n influenza virus vaccine, inactivated 10/31/14 Micheal rded SARS-CoV-2(COVID-19)mRNA-LNP vac([id number]) 09/26/23 Recorded SARS-CoV-2 (COVID-19) mRNA-1273 vaccine 10/04/21 [...] Recorded tetanus/diphtheria/pertussis, acel(Tdap) 08/15/11 Recorded 1Result Comment: [facility] [place] Medications Albuterol (Eqv-ProAir HFA) 90 mcg/inh inhalation aerosol 2 puffs, Inhalation, Every 6 hours, PRN NEEDED FOR WHEEZING AND SHORTNESS OF BREATH, # 8.5 Gm, 5Refills, Maintenance, 06/10/24 10:23:00 AM EDT, [id number], 20, INHALE 2 PUFFS EVERY 6 HOURS [...] 5 Refills, Maintenance, 06/26/25 7:10:00 AM EDT, [facility], 161, cm, 06/03/25 10:48:00 EDT, Height, [...] 1 Refills, Maintenance, 08/14/25 2:37:00 PM EDT, [facility], 161, cm, 08/04/25 14:14:00 EDT, Height, [...] Refills, Maintenance, 09/04/25 2:16:00 PM EDT, Tablet, [facility], Partial fill upon patient request if [...] Refills, Maintenance, 07/31/25 12:32:00 AM EDT, Capsule, [facility], Partial fill upon patient request if [...] 1 Refills, Maintenance, 06/27/25 7:05:00 AM EDT, [facility], Partial fill upon patient request if [...] Maintenance, 04/22/25 2:23:00 PM EDT, EC Capsule, [facility], Partial fill upon patient request [...] 0 Refills, Maintenance, 12/26/24 10:33:00 PM EST, [facility], Partial fill upon patient request if the [...] 1 Refills, Maintenance, 07/15/25 12:34:00 PM EDT, [facility], 90, 1 capsule By Mouth Daily,PRN: [...] 12:35:00 PM EDT, Route to Pharmacy Electronically, [facility], Partial fill upon patient request if [...] 1 Refills, Maintenance, 07/29/24 2:57:00 PM EDT, [facility]/pharmacy #[id number], 163, cm, 07/25/24 12:21:00 EDT, Height, [...] 12:35:00 PM EDT, Route to Pharmacy Electronically, [facility], Partial fill upon patient request if [...] Care team information Care Team Personnel Name: Nataliya FINLEY, Geovanna Spicer Position: [facility] Associate Professional Member Role: Primary Care Nurse Address: [address] [place] [address] Cardiovascular Associate [place], [place] [address] Telecom: Name: Wendy Kang RN Position: [facility] RN Member Role: Primary Care Nurse Name: Marilin Peck RN Position: [facility] RN Member Role: Primary Care Nurse Name: Razia Aponte RN Position: [facility] RN Member Role: Primary Care Nurse Name: Brenda Fung Position: [facility] Outreach Member Role: Lifetime Consulting Physician Name: Massiel Rodriguez Position: [facility] PCO Associate Professional Member Role: PCP Address: [address] [place] [address] [place] Telecom: Care Team Related Persons Name: CONSTANTINO BARRON Name: NONE, GIVEN Name: DOMINIQUE CRANE Name: DOMINIQUE CRANE Insurance Providers Guarantor name: KRYSTLE CRANE Health Plan Information #: 1 Payer: [facility] Payer Identifier: NA Member Number: [id number] Group Number: [id number] Subscriber Identifier: NA Relationship to Subscriber: self Coverage Type: Medicare Managed Care (Includes Medicare Advantage Plans) Coverage Verification Date: NA Telecom: NA Address:
--- OUTSIDE RECORDS SUMMARY | 2025-09-13 22:59 | XMS_ITS | Continuity of Care Document ---
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 Name Role Phone Massiel Rodriguez Primary Care Physician Encounter [facility] Date(s): 08/14/25 - 09/13/25 [facility] [address] [place] [address]- Encounter Type: Triage Allergies, Adverse Reactions, Alerts [...] virus vaccine, inactivated 10/31/14 Micheal rded SARS-CoV-2(COVID-19)mRNA-LNP vac([id number]) 09/26/23 Recorded SARS-CoV-2 (COVID-19) mRNA-1273 vaccine 10/04/21 [...] Recorded tetanus/diphtheria/pertussis, acel(Tdap) 08/15/11 Recorded 1Result Comment: [facility] [place] Medications Albuterol (Eqv-ProAir HFA) 90 mcg/inh inhalation aerosol 2 puffs, Inhalation, Every 6 hours, PRN NEEDED FOR WHEEZING AND SHORTNESS OF BREATH, # 8.5 Gm, 5Refills, Maintenance, 06/10/24 10:23:00 AM EDT, [facility] #[id number], 20, INHALE 2 PUFFS EVERY 6 HOURS [...] 5 Refills, Maintenance, 06/26/25 7:10:00 AM EDT, [facility], 161, cm, 06/03/25 10:48:00 EDT, Height, [...] 1 Refills, Maintenance, 08/14/25 2:37:00 PM EDT, [facility], 161, cm, 08/04/25 14:14:00 EDT, Height, [...] Refills, Maintenance, 09/04/25 2:16:00 PM EDT, Tablet, [facility], Partial fill upon patient request if [...] Refills, Maintenance, 07/31/25 12:32:00 AM EDT, Capsule, [facility], Partial fill upon patient request if [...] 1 Refills, Maintenance, 06/27/25 7:05:00 AM EDT, [facility], Partial fill upon patient request [...] Maintenance, 04/22/25 2:23:00 PM EDT, EC Capsule, [facility], Partial fill upon patient request [...] 0 Refills, Maintenance, 12/26/24 10:33:00 PM EST, [facility], Partial fill upon patient request if the [...] 1 Refills, Maintenance, 07/15/25 12:34:00 PM EDT, [facility], 90, 1 capsule By Mouth [...] 12:35:00 PM EDT, Route to Pharmacy Electronically, [facility], Partial fill upon patient request [...] 1 Refills, Maintenance, 07/29/24 2:57:00 PM EDT, [facility]acy #[id number], 163, cm, 07/25/24 12:21:00 EDT, [...] 12:35:00 PM EDT, Route to Pharmacy Electronically, [facility], Partial fill upon patient request if [...] Personnel Name: Nataliya FINLEY, Geovanna Spicer Position: [facility] Associate Professional Member Role: Primary Care Nurse Address: [address] [place] [address] Cardiovascular Associate [place], [place] [address] Telecom: Name: Wendy Kang RN Position: [facility] RN Member Role: Primary Care Nurse Name: Marilin Peck RN Position: [facility] RN Member Role: Primary Care Nurse Name: Razia Aponte RN Position: [facility] RN Member Role: Primary Care Nurse Name: Brenda Fung Position: [facility] Outreach Member Role: Lifetime Consulting Physician Name: Massiel Rodriguez Position: [facility] PCO Associate Professional Member Role: PCP Address: [address] [place] [address] [place] Telecom: Care Team Related Persons Name: CONSTANTINO BARRON Name: NONE, GIVEN Name: DOMINIQUE CRANE Name: DOMINIQUE CRANE Insurance Providers Guarantor name: KRYSTLE CRANE Health Plan Information #: 1 Payer: [facility] Payer Identifier: NA Member Number: [id number] Group Number: [id number] Subscriber Identifier: NA Relationship to Subscriber: self Coverage Type: Medicare Managed Care (Includes Medicare Advantage Plans) Coverage Verification Date: NA Telecom: NA Address:
--- OUTSIDE RECORDS SUMMARY | 2025-09-13 22:59 | XMS_ITS | Continuity of Care Document ---
Author Organization [facility] [place] Address [address] [place] [address]- Support Name Relationship Address Phone CONSTANTINO BARRON [...] CRANE, DOMINIQUE Personal Relationship Unknown Unava ilable CARNE, DOMINIQUE Personal Relationship Unknown Unava ilable CRANE, DOMINIQUE A spouse Unknown Unavailable CRANE, DOMINIQUE Other Unknown Unavailable CRANE, DOMINIQUE A spouse Unknown Unavailable CRANE, DOMINIQUE Personal Relationship Unknown Unava ilable CRANE, DOMINIQUE E Personal Relationship Unknown Dalia vailable Care Team Providers Care Architectural Drafting Instructor Name Role Phone Massiel Rodriguez Primary Care Physician Encounter [facility] Date(s): 08/14/25 - 09/13/25 [facility] [place] [address] [place] [address]- Encounter Type: Triage Allergies, Adverse Reactions, Alerts Substance Criticality Severity Reaction Reaction Severity Status predniSONE Emotional labil ity Angie Active topiramate confusion, dizz iness Topiramate Active rOPINIRole psychosis Active baclofen confusion, dizziness Active Topamax confusion,dizzi ness Baclofen Active Immunizations Given and Recorded Vaccine Date Status Refusal Reason influenza virus vaccine, inactivated 09/26/23 Micheal rded influenza virus vaccine, inactivated 01/24/22 Give n influenza virus vaccine, inactivated 10/31/14 Micheal rded SARS-CoV-2(COVID-19)mRNA-LNP vac([id number]) 09/26/23 Recorded SARS-CoV-2 (COVID-19) mRNA-1273 vaccine 10/04/21 [...] Recorded tetanus/diphtheria/pertussis, acel(Tdap) 08/15/11 Recorded 1Result Comment: [facility] [place] Medications Albuterol (Eqv-ProAir HFA) 90 mcg/inh inhalation aerosol 2 puffs, Inhalation, Every 6 hours, PRN NEEDED FOR WHEEZING AND SHORTNESS OF BREATH, # 8.5 Gm, 5Refills, Maintenance, 06/10/24 10:23:00 AM EDT, [id number], 20, INHALE 2 PUFFS EVERY 6 HOURS [...] 5 Refills, Maintenance, 06/26/25 7:10:00 AM EDT, [facility], 161, cm, 06/03/25 10:48:00 EDT, [...] 1 Refills, Maintenance, 08/14/25 2:37:00 PM EDT, [facility], 161, cm, 08/04/25 14:14:00 EDT, [...] Refills, Maintenance, 09/04/25 2:16:00 PM EDT, Tablet, [facility], Partial fill upon patient request if [...] Refills, Maintenance, 07/31/25 12:32:00 AM EDT, Capsule, [facility], Partial fill upon patient request if [...] 1 Refills, Maintenance, 06/27/25 7:05:00 AM EDT, [facility], Partial fill upon [...] Maintenance, 04/22/25 2:23:00 PM EDT, EC Capsule, [facility], Partial fill upon patient request [...] 0 Refills, Maintenance, 12/26/24 10:33:00 PM EST, [place], Partial fill upon patient request if the [...] 1 Refills, Maintenance, 07/15/25 12:34:00 PM EDT, [facility], 90, 1 capsule [...] 12:35:00 PM EDT, Route to Pharmacy Electronically, [facility], Partial fill upon [...] 1 Refills, Maintenance, 07/29/24 2:57:00 PM EDT, [facility] #[id number], 163, cm, 07/25/24 12:21:00 EDT, Height, [...] 12:35:00 PM EDT, Route to Pharmacy Electronically, [facility], Partial fill upon patient request [...] Personnel Name: Nataliya FINLEY, Geovanna Spicer Position: [facility] Associate Professional Member Role: Primary Care Nurse Address: [address] [place] [address] Cardiovascular Associate [place], [place] [address] Telecom: Name: Wendy Kang RN Position: [facility] RN Member Role: Primary Care Nurse Name: Marilin Peck RN Position: [facility] RN Member Role: Primary Care Nurse Name: Razia Aponte RN Position: [facility] RN Member Role: Primary Care Nurse Name: Brenda Fung Position: [facility] Outreach Member Role: Lifetime Consulting Physician Name: Massiel Rodriguez Position: [facility] PCO Associate Professional Member Role: PCP Address: [address] [place] [address] [place] Telecom: Care Team Related Persons Name: CONSTANTINO BARRON Name: NONE, GIVEN Name: DOMINIQUE CRANE Name: DOMINIQUE CRANE Insurance Providers Guarantor name: KRYSTLE CRANE Health Plan Information #: 1 Payer: [facility] Payer Identifier: NA Member Number: [id number] Group Number: [id number] Subscriber Identifier: NA Relationship to Subscriber: self Coverage Type: Medicare Managed Care (Includes Medicare Advantage Plans) Coverage Verification Date: NA Telecom: NA Address:
--- NOTE | 2025-09-17 11:37 | EMG_ITS ---
Chief complaint: Complains that she drops things from her hands all the time. Chronic right-sided neck pain. She remembers that she had an EMG by me at [facility], more than 4 years ago. I do not had have that EMG available for comparison today. Status post right carpal tunnel release and ulnar nerve surgery under Dr. Evans. Also around that time, patient was already complaining of neck pain and underwent cervical spine injections. She also reports that she had a recent MRI done and she is now following with [facility]. On exam today, reflexes are 3+ bilateral upper and lower extremities, with positive bilateral Ta's sign. Reason for referral: Evaluate for Carpal Tunnel Syndrome or ulnar neuropathy Referred by: Dr. Evans Procedure done: Bilateral upper extremities NCS/EMG Precautions and/or limitations: None The limb temperature was monitored continuously and remained between 32-36 degrees C during the performance of the NCS. Nerve Conduction Studies Anti Sensory Summary Table ?Stim Site NR Onset (ms) Norm Onset (ms) Peak (ms) Norm Peak (ms) O-P Amp (?V) Norm O-P Amp Site1 Site2 Delta-0 (ms) Dist (cm) Faraz (m/s) Norm Faraz (m/s) Left Median Anti Sensory (2nd Digit) Wrist ? 2.8 3.6 <3.6 70.8 >10 Wrist 2nd Digit 2.8 14.0 50 Right Median Anti Sensory (2nd Digit) Wrist ? 2.4 3.3 <3.6 76.5 >10 Wrist 2nd Digit 2.4 14.0 58 Right Radial Anti Sensory (Thumb) Forearm ? 1.8 2.4 <3.1 17.3 Forearm Thumb 1.8 0.0 Left Ulnar Anti Sensory (5th Digit) Wrist ? 2.6 3.5 <3.7 20.6 >15.0 Wrist 5th Digit 2.6 14.0 54 Right Ulnar Anti Sensory (5th Digit) Wrist ? 2.8 3.7 <3.7 17.3 >15.0 Wrist 5th Digit 2.8 14.0 50 Motor Summary Table ?Stim Site NR Onset (ms) Norm Onset (ms) O-P Amp (mV) Norm O-P Amp iAmp (mV) Amp (1st) (%) Site1 Site2 Delta-0 (ms) Dist (cm) Faraz (m/s) Norm Faraz (m/s) Left Median Motor (Abd Poll Brev) Wrist ? 3.4 <3.9 12.0 >4.5 13.9 100.0 Elbow Wrist 3.6 17.5 49 >45 Elbow ? 7.0 10.2 12.5 85.0 Right Median Motor (Abd Poll Brev) Wrist ? 3.8 <3.9 15.7 >4.5 19.4 100.0 Elbow Wrist 3.6 20.0 56 >45 Elbow ? 7.4 15.3 18.6 97.5 Left Ulnar Motor (Abd Dig Minimi) Wrist ? 3.1 <3.0 10.1 >5 12.6 100.0 B Elbow Wrist 2.8 16.0 57 >45 B Elbow ? 5.9 8.9 12.3 88.1 A Elbow B Elbow 1.9 10.0 53 >45 A Elbow ? 7.8 9.2 13.1 91.1 Right Ulnar Motor (Abd Dig Minimi) Wrist ? 3.0 <3.0 7.8 >5 9.6 100.0 B Elbow Wrist 3.2 18.5 58 >45 B Elbow ? 6.2 6.4 7.9 82.1 A Elbow B Elbow 2.2 10.0 45 >45 A Elbow ? 8.4 6.6 7.6 84.6 EMG ?Side Muscle Nerve Root Ins Act Fibs Psw Amp Dur Poly Recrt Int Pat Comment Right 1stDorInt Ulnar C8-T1 Nml Nml Nml Nml Nml 0 Nml Complete Right FlexCarRad Median C6-7 Nml Nml Nml Nml Nml 0 Nml Complete Right Biceps Musculocut C5-6 Nml Nml Nml Nml Nml 0 Nml Complete Right Triceps Radial C6-7-8 Nml Nml Nml Nml Nml 0 Nml Complete Right Deltoid Axillary C5-6 Nml Nml Nml Nml Nml 0 Nml Complete Left 1stDorInt Ulnar C8-T1 Nml Nml Nml Nml Nml 0 Nml Complete Left FlexCarRad Median C6-7 Nml Nml Nml Nml Nml 0 Nml Complete Left Biceps Musculocut C5-6 Nml Nml Nml Nml Nml 0 Nml Complete Left Triceps Radial C6-7-8 Nml Nml Nml Nml Nml 0 Nml Complete Left Deltoid Axillary C5-6 Nml Nml Nml Nml Nml 0 Nml Complete Paraspinal EMG ?Side Muscle Nerve Root Ins Act Fibs Psw Comment Right Cervical Upper Rami Nml Nml Nml Right Cervical Mid Rami Nml Nml Nml Right Cervical Lower Rami Nml Nml Nml Left Cervical Upper Rami Nml Nml Nml Left Cervical Mid Rami Nml Nml Nml Left Cervical Lower Rami Nml Nml Nml FINDINGS: All motor and sensory nerves tested showed normal latencies, amplitudes and conduction velocities. Concentric needle EMG was performed in selected muscles of the bilateral upper extremities and cervical paraspinals. Study did not reveal signs of electric abnormalities as shown in the table above. IMPRESSION: 1. This is a normal study. 2. There is no electrodiagnostic evidence for median neuropathy, ulnar neuropathy, brachial plexopathy, or cervical radiculopathy. CLINICAL COMMENT: Please note that cervical spinal stenosis or cervical myelopathy do not show findings on EMG. Clinically, she presents with hyper reflexia. She confirms that a recent MRI showed cord compression. Thank you for your kind referral. Lana Carpenter MD, MELANIE Board Certified, [place] Board of Physical Medicine and Rehabilitation (ABPMR) Board Certified, [place] Board of Electrodiagnostic Medicine (ABEM) CODIN [phone] x 2 MTDD
--- OUTSIDE RECORDS SUMMARY | 2025-09-17 14:12 | XMS_ITS | Continuity of Care Document ---
Author Name [facility], Medical Address [address] [place] [id number] Organization Unknown Address [address] [place] [address] Medications No known medications Problems No known problems
--- OUTSIDE RECORDS SUMMARY | 2025-09-17 14:12 | XMS_ITS | Clinical Summary ---
Author Organization [facility] Address [address] [place] [address] Care Team Providers Care Real Estate Attorney Name Role Phone Unavailable Primary Care Provider [...] 102 07/03/2020 3:29 PM EDT Temperature 36.3 C (97.3 F) 07/03/2020 3:29 PM EDT Respiratory Rate - - Oxygen Saturation - [...] Cancer Screening (Mammogram) 2020 Influenza Vaccine (#1) 2025 , 01/14/2019, 08/31/2017, Additional history exists DTap / Tdap / Td (3 - Td or Tdap) 11/24/2025 11/24/2015, 08/15/2011 RSV Ped < 20 months Aged Out No longe r eligible based on patient's age to complete this topic
--- OUTSIDE RECORDS SUMMARY | 2025-09-17 14:12 | XMS_ITS | Clinical Summary ---
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 Name Role Phone Unknown, Doctor Primary Care Provider Unavailabl e Allergies Active Allergy Reactions Criticality Noted Date Comments Baclofen Unknown 08/20/2021 Iodine Itching 05/27/2024 Milk Unknown 04/13/2021 powdered Oxcarbazepine Unknown 08/20/2021 Other reaction(s): mental confusion, slurred speech Prednisone Hallucinations 07/01/2024 Mood swings Mood swings Ropinirole Hallucinations,Unknown 06/09/2022 Topiramate Unknown 08/20/2021 Medications venlafaxine XR (EFFEXOR XR) 37.5 mg capsule SMARTSI Capsule(s) By Mouth Daily 4 Active venlafaxine XR (EFFEXOR XR) 75 mg capsule TAKE 1 CAPSULE BY MOUTH ONCE A DAY FOR 1 WEEK THEN TAKE WITH THE 37.5 MG CAPSULE DAILY THERAFTER FOR TOTAL DAILY DOSE OF 112.5 MG 4 Active Incruse Ellipta 62.5 mcg/actuation blister with device Inhale 1 puff by mouth daily. 5 Active triamterene-hydro chlorothiazid (DYAZIDE) 37.5-25 mg per capsule 5 Active tiZANidine (ZANAFLEX) 4 mg tablet Take 4 mg by mouth. Active Vitamin B-1, mononitrate, 100 mg tablet SMARTSI Tablet(s) By Mouth Daily 5 Active Saline Mist 0.65 % nasal spray SMARTSI [place](s) Both Nares Twice Daily 5 Active riboflavin, vitamin B2, 400 mg tablet SMARTSI Tablet(s) By Mouth Daily 5 Active rizatriptan (MAXALT) 10 mg tablet 5 Active propranoloL (INDERAL) 10 mg tablet Take 10 mg by mouth 3 times daily as needed. 5 Active OXcarbazepine (TRILEPTAL) 150 mg tablet 5 Active OLANZapine (ZyPREXA) 20 mg tablet SMARTSI Tablet(s) By Mouth Every Morning Active norethindrone (MICRONOR) 0.35 mg tablet Take 1 tablet by mouth once a day. Active methylphenidate ER (METADATE ER) 20 mg tablet SMARTSI Tablet(s) By Mouth Daily 5 Active lurasidone (LATUDA) 40 mg tablet SMARTSI Tablet(s) By Mouth Daily 4 Active methocarbamoL (ROBAXIN) 750 mg tablet SMARTSI Tablet(s) By Mouth 3 Times Daily PRN Active lisinopriL (PRINIVIL,ZESTRIL ) 5 mg tablet Take 5 mg by mouth daily. Active losartan (COZAAR) 25 mg tablet Take 25 mg by mouth. 5 Active levothyroxine (SYNTHROID, LEVOTHROID) 88 mcg tablet 1 tablet, orally six days/week, 2 tablets on the 7th day, or as directed. 5 Active gabapentin (NEURONTIN) 600 mg tablet Take 600 mg by mouth 3 times daily. Active furosemide (LASIX) 20 mg tablet Take 20 mg by mouth daily. Active FLUoxetine (PROzac) 10 mg capsule SMARTSI Capsule(s) By Mouth Daily 5 Active esomeprazole (NexIUM) 40 mg capsule Take 40 mg by mouth daily. Active denosumab (PROLIA) 60 mg/mL syringe subcutaneous syringe Inject 60 mg under the skin. 5 Active KlonoPIN 0.5 mg tablet SMARTSI Tablet(s) By Mouth Twice Daily PRN 5 Active Vraylar 4.5 mg capsule capsule Take 4.5 mg by mouth daily. 4 Active atorvastatin (LIPITOR) 20 mg tablet Take 20 mg by mouth daily. Active atomoxetine (STRATTERA) 60 mg capsule SMARTSI Capsule(s) By Mouth Daily 5 Active amitriptyline (ELAVIL) 50 mg tablet Active albuterol (PROAIR HFA,VENTOLIN HFA) 90 mcg inhaler Inhale 2 puffs by mouth every 6 hours as needed. Active Active Problems Patient Care Coordination No te Formatting of this note migh t be different from the original. No additional problems on file Encounters Date Type Department Care Team Description 06/18/2025 10:00 AM EDT Office Visit [facility] Urgent Care Department [address] [place] [address] Katelyn King MD Acute left ankle pain (Primary Dx); Left foot pain 06/18/2025 Results Follow-Up [address] Urgent Care Department [address] [place] [address] Katelyn King MD from Last 3 Months Social History Tobacco Use Types Packs/Day Years Used Date Smoking Tobacco: Never Smokeless Tobacco: Never Comments No Sex and Gender Information Value Date Recorded Sex Assigned at Female 06/18/2025 9:48 AM EDT Legal Sex Female 11:59 PM EDT Gender Identity Female 06/18/2025 9:56 AM EDT Sexual Orientation Not on file Last Filed Vital Signs Vital Sign Reading Time Taken Comments Blood Pressure 101/70 06/18/2025 10:04 AM EDT Pulse 72 06/18/2025 10:04 AM EDT Temperature 36.6 C (97.8 F) 06/18/2025 10:04 AM EDT Respiratory Rate - - Oxygen Saturation 96% 06/18/2025 10:04 AM EDT Inhaled Oxygen Concentration - - Weight - - Height - - Body Mass Index - - Plan of Treatment Health Maintenance Due Date Last Done Comments Cervical Cancer Screening 1970 Cologuard 1970 Colon Cancer Screening 1970 Colonoscopy 1970 FOBT / Fit Test 1970 HIV Screening 1970 HPV and Pap Smear 1970 Hepatitis C Screening 1970 Pap Smear 1970 Sigmoidoscopy 1970 Hepatitis B Vaccines (1 of 3 - 19+ 3-dose series) 1989 Pneumococcal Vaccine: 50+ Ye ars (1 of 2 - PCV) 1989 Mammogram 2010 Zoster Vaccines (2 of 2) 11/06/2020 09/11/2020, 08/14 Alcohol/Substance Use Screening 11/13/2024 Depression Screening and Follow-Up 11/13/2024 Social Drivers of Health Mayi ual Screening 11/13/2024 COVID-19 Vaccine (3 - 2024-2 6 season) 2025 01/06/2021, 12/09/2020 Influenza Vaccine (#1) 2025 , 01/24/2022, 2020, Additional history exists DTaP,Tdap,and Td Vaccines (4 - Td or Tdap) 11/24/2025 11/24/2015, 11/24/2015, 08/15/2011 RSV Vaccine (60+ years old a nd patients) (1 - 1-dose 75+ series) 2045 Procedures * Due to [place] [employer] law, this organization might not be sharing negative HIV tests. Procedure Name Priority Date/Time Associated Diagnosis Comments XR ANKLE 3+ VW LEFT Routine 06/18/2025 1 0:42 AM EDT Acute left ankle pain XR FOOT 3+ VW LEFT Routine 06/18/2025 10 :36 AM EDT Left foot pain from Last 3 Months Results * Due to [place] [employer] law, this organization might not be sharing negative HIV tests. * XR Ankle 3+ vw Left (06/18/2025 10:42 AM EDT) Anatomical Region Laterality Modality Lower Extremities, Ankle Left Radiogr aphic Imaging 06/18/2025 10:5 9 AM EDT Impressions 06/18/2025 11:06 AM EDT Left ankle AP lateral and bilateral oblique views. Soft tissue swelling more pronounced medially. Internally fixated healed fractures of the distal fibula and medial malleolus. Alignment maintained hardware is intact. No new fractures dislocations are identified in the views available. Ankle mortise and subtalar joints are within normal limits. No arthropathy. Small corticated nonspecific ossicle at the distal tibia medially. Left foot weightbearing AP lateral and oblique views. Mild osteopenia and soft tissue swelling. Very mild degenerative changes in some of the IP joints. No erosions suggestive off inflammatory arthropathy. No old or recent fractures dislocations or stress related changes. Mild pes planus. If this radiology report contains a blank impression section, it is an incomplete radiology report. Please contact the interpreting radiologist or applicable radiology division as soon as possible to obtain the completed interpretation. Workstation ID: [id number] Narrative 06/18/2025 11:06 AM EDT COMPARISON: There are no prior studies available for comparison at this time. FINDINGS AND Resulting Agency Comment [id number] Procedure Note Sarahi Jones MD - 06/18/2025 COMPARISON: There are no prior studies available for comparison at thistime. FINDINGS AND IMPRESSION: Left ankle AP lateral and bilateral oblique views. Soft tissue swelling more pronounced medially. Internally fixated healedfractures of the distal fibula and medial malleolus. Alignment maintainedhardware is intact. No new fractures dislocations are identified in the views available. Anklemortise and subtalar joints are within normal limits. No arthropathy.Small corticated nonspecific ossicle at the distal tibia medially. Left foot weightbearing AP lateral and oblique views. Mild osteopenia and soft tissue swelling. Very mild degenerative changesin some of the IP joints. No erosions suggestive off inflammatoryarthropathy. No old or recent fractures dislocations or stress related changes. Mildpes planus. If this radiology report contains a blank impression section, it is anincomplete radiology report. Please contact the interpreting radiologistor applicable radiology division as soon as possible to obtain thecompleted interpretation. Workstation ID: [id number] us Katelyn King MD IMG XR PROCEDURES Final Result * XR Foot 3+ vw Left (06/18/2025 10:36 AM EDT) Anatomical Region Laterality Modality Lower Extremities, Foot Left Radiogra phic Imaging 06/18/2025 10:5 9 AM EDT Impressions 06/18/2025 11:06 AM EDT Left ankle AP lateral and bilateral oblique views. Soft tissue swelling more pronounced medially. Internally fixated healed fractures of the distal fibula and medial malleolus. Alignment maintained hardware is intact. No new fractures dislocations are identified in the views available. Ankle mortise and subtalar joints are within normal limits. No arthropathy. Small corticated nonspecific ossicle at the distal tibia medially. Left foot weightbearing AP lateral and oblique views. Mild osteopenia and soft tissue swelling. Very mild degenerative changes in some of the IP joints. No erosions suggestive off inflammatory arthropathy. No old or recent fractures dislocations or stress related changes. Mild pes planus. If this radiology report contains a blank impression section, it is an incomplete radiology report. Please contact the interpreting radiologist or applicable radiology division as soon as possible to obtain the completed interpretation. Workstation ID: [id number] Narrative 06/18/2025 11:06 AM EDT COMPARISON: There are no prior studies available for comparison at this time. FINDINGS AND Resulting Agency Comment [id number] Procedure Note Sarahi Jones MD - 06/18/2025 COMPARISON: There are no prior studies available for comparison at thistime. FINDINGS AND IMPRESSION: Left ankle AP lateral and bilateral oblique views. Soft tissue swelling more pronounced medially. Internally fixated healedfractures of the distal fibula and medial malleolus. Alignment maintainedhardware is intact. No new fractures dislocations are identified in the views available. Anklemortise and subtalar joints are within normal limits. No arthropathy.Small corticated nonspecific ossicle at the distal tibia medially. Left foot weightbearing AP lateral and oblique views. Mild osteopenia and soft tissue swelling. Very mild degenerative changesin some of the IP joints. No erosions suggestive off inflammatoryarthropathy. No old or recent fractures dislocations or stress related changes. Mildpes planus. If this radiology report contains a blank impression section, it is anincomplete radiology report. Please contact the interpreting radiologistor applicable radiology division as soon as possible to obtain thecompleted interpretation. 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
--- OUTSIDE RECORDS SUMMARY | 2025-09-17 14:12 | XMS_ITS | Clinical Summary ---
Author Organization [facility] Address [address] [facility] [address] [place] [phone] Phone Care Team Providers Care Screen And Cyclone Repairer Name Role Phone Charlene Angulo MD Primary Care Provid er Allergies Active Allergy Reactions Criticality Noted Date Comments Baclofen 04/04/2022 Iodine Itching 06/13/2024 Milk 04/13/2021 powdered Oxcarbazepine 08/20/2021 Other reaction(s): mental confusion, slurred speech Prednisone 07/01/2024 Mood swings Ropinirole 06/09/2022 Topiramate 04/04/2022 Medications METHYLPHENIDATE HCL ORAL Take 40 mg by mouth every morning. 02/13/20 22 Active carbidopa-levodo pa (SINEMET) 25-100 mg per tablet 1.5 tabs 4 times day 05/23/20 22 Active lidocaine (LIDODERM) 5 % Place 1 patch onto the skin daily as needed. 10/26/20 21 Active gabapentin (NEURONTIN) 600 MG tablet Take 600 mg by mouth 3 (three) times a day. 12/20/19 23 Active atorvastatin (LIPITOR) 20 MG tablet Take 1 tablet by mouth daily. 07/31/20 22 Active clonazePAM (KLONOPIN) 0.5 MG tablet Take 0.5 mg by mouth 2 (two) times a day as needed for anxiety. 03/01/20 23 Active esomeprazole (NEXIUM) 40 MG capsule Take 40 mg by mouth daily before breakfast. Active albuterol 90 mcg/actuation inhaler INHALE 2 PUFFS EVERY 6 HOURS NEEDED FOR WHEEZING AND SHORTNESS OF BREATH 08/12/20 Active rizatriptan (MAXALT) 10 MG tablet TAKE [...] a day. AYR PRN 02/17/20 23 Active cyclobenzaprine (FLEXERIL) 5 MG tablet Take 5 mg by mouth 3 (three) times a day as needed. Active OXcarbazepine (TRILEPTAL) 150 MG tablet Take 1 tablet by mouth 2 (two) times a day. 03/07/20 24 Active riboflavin, vitamin B2, (RIBOFLAVIN ORAL) Take 400 mg by mouth daily. Active thiamine (VITAMIN B-1) 100 MG tablet Take 100 mg by mouth daily. Active denosumab (PROLIA) 60 mg/mL Syrg subcutaneous syringeIndicatio ns:postmenopausa l osteoporosis and high fracture risk Inject 1 mL (60 mg total) under the skin every 6 (six) months. 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 10/28/20 24 Active cyanocobalamin, vitamin B-12, (VITAMIN B-12) 500 MCG tablet Take 500 mcg by mouth daily. Active FLUoxetine (PROZAC) 40 MG capsule Take 40 mg by mouth daily. Active losartan (COZAAR) 25 MG tablet Take 25 mg by mouth daily. 02/20/20 25 Active propranoloL (INDERAL) 10 MG immediate release tablet Take 10 mg by mouth 3 (three) times a day. 02/26/20 25 Active OLANZapine (ZYPREXA) 20 MG tablet Take 20 mg by mouth daily. 04/29/20 25 Active INCRUSE ELLIPTA 62.5 mcg/actuation inhalation Inhale 1 puff into the lungs daily. 06/06/20 25 Active folic acid (FOLVITE) 1 MG tabletIndication s:Folate deficiency Take 1 tablet (1 mg total) by mouth daily. 90 tablet 3 09/12/20 25 Active cholecalciferol (VITAMIN D3) 5,000 unit capsuleIndicatio ns:Vitamin D insufficiency,Ag e-related osteoporosis without current pathological fracture Take 1 capsule (5,000 Units total) by mouth daily. 90 capsule 1 09/15/20 25 Active cholecalciferol (VITAMIN D3) 5,000 unit capsule Take 5,000 Units by mouth daily. 025 Discontin ued(Reord er) Active Problems Problem Noted Date Diagnosed Date Class 2 severe obesity due t o excess calories with serious comorbidity and body mass index (BMI) of 35.0 to 35.9 in adult 06/26/2025 Assessment & Plan (07/10/2025 4:48 PM EDT): Congratulations on 23 pounds weight loss from 219 on 07/01/2024 down to 196 today and keep it off. Continue diligent portion control. Limit concentrated sugars, saturated fats and calories in the diet. Keep well-hydrated. If unable to achieve expected goal consider formal dietary/nutritional support. Myalgia 07/01/2024 Assessment & Plan (07/02/2024 4:25 [...] monitoring denosumab therapy 09/18 Assessment & Plan (06/26/2025 5:04 PM EDT): I reviewed with her need for monitoring for side effects and clarifying that short lasting changes in her status do not represent side effects from Prolia injection I reminded her to get chemistry profile within 30 days prior to every 6 months subcutaneous Prol[facility] injections-[facility]. Assessment & Plan (07/01/2024 4:06 PM EDT): I reviewed with her need for monitoring for side effects and clarifying that short lasting changes in her status do not represent side effects from Prolia injection I reminded her to get chemistry profile within 30 days prior to every 6 months subcutaneous Prolia injections-standing orders in [facility]. Assessment & Plan (06/13/2024 11:54 AM EDT): I reviewed with her need for monitoring for side effects and clarifying that short lasting changes in her status do not represent side effects from Prolia injection I reminded her to get chemistry profile within 30 days prior to every 6 months subcutaneous Prolia injections-standing orders in [facility]. Assessment & Plan (03/20/2024 1:10 PM EDT): I reviewed with her need for monitoring for side effects and clarifying that short lasting changes in her status do not represent side effects from Prolia injection I reminded her to get chemistry profile within 30 days prior to every 6 months subcutaneous Prolia injections-standing orders in [facility]. Assessment & Plan (09/19/2023 10:13 AM EST): I reviewed with her need for monitoring for side effects and clarifying that short lasting changes in her status do not represent side effects from Prolia injection I reminded her to get chemistry profile within 30 days prior to every 6 months subcutaneous Prolia injections-standing orders in [facility]. NSAID long-term use 03/16/2023 Assessment & Plan [...] involving multiple joints 01/05/2023 Assessment & Plan (06/26/2025 5:03 PM EDT): Joint protection, energy conservation. Gentle, [...] for local steroid injection. Assessment & Plan (07/01/2024 4:05 PM EDT): [...] regular warm pool therapy such as at [facility] in [place] versus [facility] in [place] versus local [facility] or health club. Assessment & Plan (06/13/2024 [...] regular warm pool therapy such as at [facility] in [place] versus [facility] in [place] versus local [facility] or health club. Assessment & Plan (06/09/2022 [...] regular warm pool therapy such as at [facility] versus [place] [facility] [employer] [facility] versus [facility] or [facility]. Assessment & Plan (04/09/2022 10:49 AM EDT): [...] regular warm pool therapy such as at [facility] versus [place] [facility] [employer] [facility] versus [facility] or [facility]. Chronic fatigue 04/06/2022 Assessment & Plan (04/09/2022 [...] current pathological fracture 04/06/2022 Assessment & Plan (07/10/2025 4:47 PM EDT): According to her report she started Fosamax in October 2021. Most recent BMD from 11/03/2023 at [facility] revealed ongoing osteoporosis in lumbar spine: T [...] focus on complete smoking cessation. She is due for subcutaneous every 6 months Prolia dose today: Documentation to prescribe Prolia for postmenopausal osteoporosis at high risk for fracture should include but is not limited to the following: Are supplemental Calcium & Vitamin D prescribed?: (Required) Y Patient's Age and Sex: 54 yo F Menopausal Status: postmenopausal Is there documentation supporting the diagnosis of Osteoporosis?: Y Previous treatment of Osteoporosis: Y Agents used: Oral Fosamax Outcomes: Completed 5 years of therapy Adverse reactions (if any): History of previous fracture(s): N Type of fracture: Cause: Time since occurrence: Risk factors for future fracture, including preventive measures: Continues fracture prevention strategies, daily weightbearing exercises, proper calcium and vitamin D supplementation. 60 mg Prolia injected subcutaneously under sterile condition into her right arm uneventfully. PATIENT SUPPLIED Assessment & Plan (03/03/2025 4:42 PM EDT): Managed by rheumatology. Assessment & Plan (09/09/2024 5:26 PM EDT): Managed by rheumatology. Assessment & Plan (07/01/2024 4:06 PM EDT): According to her report she started Fosamax in October 2021. Most recent BMD from 11/03/2023 at [facility] revealed ongoing osteoporosis in lumbar spine: T [...] 2021. Most recent BMD from 11/03/2023 at [facility] revealed ongoing osteoporosis in lumbar spine: T [...] 2021. Most recent BMD from 11/03/2023 at [facility] revealed ongoing osteoporosis in lumbar spine: T [...] 2021. Most recent BMD from 10/20/2021 at [facility] revealed marked osteoporosis in lumbar spine: T [...] subcutaneous every 6 months Prolia dose today: D ocumentation to prescribe Prolia for postmenopausal osteoporosis at [...] 2021. Most recent BMD from 10/20/2021 at [facility] revealed marked osteoporosis in lumbar spine: T [...] subcutaneous every 6 months Prolia dose today: D ocumentation to prescribe Prolia for postmenopausal osteoporosis at [...] 2020. Most recent BMD from 10/20/2021 at [facility] revealed marked osteoporosis in lumbar spine: T [...] 2020. Most recent BMD from 10/20/2021 at [facility] revealed marked osteoporosis in lumbar spine: T [...] depressive d isorder 04/06/2022 Assessment & Plan (06/26/2025 5:41 PM EDT): Continue close follow-up with treating psychiatrist and take medications exactly as prescribed. Optimize laxation and stress management strategies Assessment & Plan (04/09/2022 10:35 AM EDT): Continue close follow-up with treating psychiatrist and take medications exactly as prescribed. Optimize laxation and stress management strategies Cough 04/06/2022 Assessment & Plan (04/09/2022 10:29 AM EDT): Possible multifactorial origin including allergies and or chronic bronchitis/COPD from over 3 decades ago cigarette smoking. See car construction superintendent as scheduled in mid April 2022. Gastroesophageal reflux dise ase with esophagitis without hemorrhage 04/06/2022 Assessment & Plan (06/26/2025 5:04 PM EDT): Avoid late, large, spicy meals. Keep headboard elevated at 45 angle for nighttime. Importance of complete smoking cessation strongly underscored. Assessment & Plan (07/01/2024 4:06 PM EDT): Avoid late, large, spicy meals. Keep headboard elevated at 45 angle for nighttime. Importance of complete smoking cessation strongly underscored. Assessment & Plan (06/13/2024 11:53 AM EDT): Avoid late, large, spicy meals. Keep headboard elevated at 45 angle for nighttime. Importance of complete smoking cessation strongly underscored. Assessment & Plan (03/24/2024 11:43 AM EDT): Avoid late, large, spicy meals. Keep headboard elevated at 45 angle for nighttime. Importance of complete smoking cessation strongly underscored. Assessment & Plan (09/18/2023 1:49 PM EST): Avoid late, large, spicy meals. Keep headboard elevated at 45 angle for nighttime. Assessment & Plan (03/16/2023 4:08 PM EDT): Avoid late, large, spicy meals. Keep headboard elevated at 45 angle for nighttime. Assessment & Plan (09/01/2022 11:51 AM EDT): Avoid late, large, spicy meals. Keep headboard elevated at 45 angle for nighttime. She was explained that cigarette smoking increases the severity of heartburn therefore cigarette smoking cessation will provide additional benefit in that regard. Assessment & Plan (06/09/2022 10:29 AM EDT): Avoid late, large, spicy meals. Keep headboard elevated at 45 angle for nighttime. Assessment & Plan (04/09/2022 10:34 AM EDT): Avoid late, large, spicy meals. Keep headboard elevated at 45 angle for nighttime. RLS (restless legs syndrome) 04/06/2022 Assessment & Plan (04/09/2022 10:34 AM EDT): Follow closely with neurologist and sleep medicine specialist as scheduled. Urinary frequency 04/06/2022 Tobacco dependence 04/06/2022 Assessment & Plan (06/26/2025 5:04 PM EDT): I have spent at least [...] with free service to quit smoking by [employer]. She admits that 10 minutes session every other week was certainly not enough for her. Assessment & Plan (07/01/2024 4:06 PM EDT): [...] with free service to quit smoking by [employer]in[employer]. She admits that 10 minutes session [...] with free service to quit smoking by [employer]. She admits that 10 minutes session [...] with free service to quit smoking by [employer]. She admits that 10 minutes session [...] with free service to quit smoking by [employer] Assessment & Plan (03/16/2023 4:08 PM EDT): [...] Encounters Date Type Department Care Team Description 09/12/2025 Orders Only [facility] Rheumatology [address] [place] [address] [place] [id number] Mandi Mcdonnell MD Folate deficiency (Primary Dx) 09/08/2025 Telephone [facility] Rheumatology [address] [place] [address] [place] [address] Mandi Mcdonnell MD X-Ray Results 09/01/2025 Telephone [facility] Rheumatology [address] [place] [address] Mandi Mcdonnell MD Advice Only 08/08/2025 Telephone [facility] Rheumatology [address] [place] [address] [place] [address] Mandi Mcdonnell MD Fall 08/04/2025 Telephone [facility] Rheumatology [address] [place] [address] [place] [address] Mandi Mcdonnell MD Results 07/31/2025 Telephone [facility] Rheumatology [address] [place] [address] [place] [address] Mandi Mcdonnell MD Forms & Paperwork; Appointment 07/17/2025 Telephone [facility] Endocrinology [address] [place] [address] [place] [address] Jovana Quintana RN 07/15/2025 Telephone [facility] Rheumatology [address] [place] [address] [place] [address] Mandi Mcdonnell MD Elbow Pain 06/26/2025 4:30 PM EDT Office Visit [facility] Rheumatology [address] [place] [address] [place] [address] Mandi Mcdonnell MD Age-related osteoporosis without current pathological fracture (Primary Dx); Primary osteoarthritis involving multiple joints; Gastroesophageal reflux disease with esophagitis without hemorrhage; Vitamin D insufficiency; Moderate episode of recurrent major depressive disorder; Encounter for monitoring denosumab therapy; Tobacco dependence; Class 2 severe obesity due to excess calories with serious comorbidity and body mass index (BMI) of 35.0 to 35.9 in adult 06/24/2025 Refill [facility] Endocrinology [address] [phone] Marilin Arcos MD Medication Refill from Last 3 Months Immunizations Immunization Administration Dates Next Due COVID-19 (Pre-09/04) Moderna Vaccine, mRNA, PF 01/06/2021,12/09/2020 INFLUENZA, SPLIT VIRUS, TRIV ALENT W/ PRESERVATIVE IM 01/24/2022,10/31/2014,08/28/2012,2010 Influenza Quadrivalent MDCK Preservative Free IM 2020,01/14/2019 Influenza Quadrivalent Prese rvative Free IM 09/06/2019 Influenza, whole 2020, 9,01/14/2019,2013,08/28/2012,08/15/2011 PPD Test 10/11/2007 Tdap 11/24/2015,08/15/2011,08/15/2011 Zoster recombinant 09/11/2020,09/08/2020 Family History Medical History Relation Comments Heart disease Mother Hypertension Mother Relation Status Comments Mother Social History Tobacco Use Types Packs/Day Years Used Date Smoking Tobacco: Every Day Cigarettes 1.3 39.8 Started: 1985 Passive Smoke Exposure: Current Smokeless [...] Sign Reading Time Taken Comments Blood Pressure 110/76 06/26/2025 4:35 PM EDT Pulse 67 06/26/2025 4:35 PM EDT Temperature 36.2 C (97.2 F) 10/02/2023 1:20 PM EST Respiratory Rate 16 04/06/2022 1:01 PM EDT Oxygen Saturation 95% 06/26/2025 4:35 PM EDT Inhaled Oxygen Concentration - - Weight 89.1 kg (196 lb 6.4 oz) 06/26/2025 4:35 P M EDT Height 158.4 cm (5' 2.36 ) 06/26/2025 4:35 PM ED T Body Mass Index 35.51 06/26/2025 4:35 PM EDT Plan of Treatment Upcoming Encounters Date Type Department Care Team (Late st Contact Info) Description 09/22/2025 11:40 AM EST Office Visit [facility] Endocrinology [address] [place] [address] Marilin Arcos MD [address] [place] [address] [address] [place] [address] 12/31/2025 11:00 AM EST Office Visit [facility] Rheumatology [address] [place] [address] [place] [address] Mandi Mcdonnell MD [address] [place] [address], [address] [place] [address] [email or web address] Health Maintenance Due Date Last Done Comments [...] 11/06/2020 09/11/2020, 08/14 LIPID PANEL 02/06/2024 02/05/2019 INFLUENZA VACCINE (#1) 2025 , 01/24/2022, 2020, Additional history exists TSH LEVEL 07/01/2025 07/01/2024, 03/04/2024 COVID-19 VACCINE ( season) 2025 09/26/2023, 10/04/2021, 01/06/2021, Additional history exists CREATININE LEVEL 08/27/2025 08/27/2024, , 03/04/2024, Additional history exists POTASSIUM LEVEL 08/27/2025 08/27/2024, 06/13, 03/04/2024, Additional history exists Adult Td,Tdap Booster 11/24/2025 11/24/2015 , 08/15/2011, 08/15/2011 MAMMOGRAM 02/26/2026 02/27/2024 SMOKING Hx and SMOKELESS TOBACCO SCREENING 06/26/2026 06/26/2025 SCREENING FOR DIABETES 08/27/2027 08/27/2024 RSV VACCINE (1 - 1-dose 75+ series) 2045 HEPATITIS A VACCINES Aged Out No long [...] Name Priority Date/Time Associated Diagnosis Comments XR KNEE (RIGHT) Routine 09/04/2025 10:43 AM EDT Age-related osteoporosis without current pathological fracture Primary osteoarthritis involving multiple joints XR KNEE (LEFT) Routine 09/04/2025 10:43 AM EDT Age-related osteoporosis without current pathological fracture Primary osteoarthritis involving multiple joints BD DXA SCREENING Routine 06/26/2025 5:25 PM EDT Age-related osteoporosis without current pathological fracture COMPREHENSIVE METABOLIC PANEL (CMP) Routine 08/27/2024 1:48 PM EDT Hyperparathyroidism, unspecified TSH WITH REFLEX Routine 07/01/2024 4:06 PM EDT 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 from Last 3 Months or Most Recently Relevant to Health Maintenance Results * XR Knee (Right) (09/04/2025 10:43 AM EDT) Anatomical Region Laterality Modality Knee Right XR Diagnostic Mandi Mcdonnell MD IMG XR LOWER EXTREMITY F inal Result * XR Knee (Left) (09/04/2025 10:43 AM EDT) Anatomical Region Laterality Modality Knee Left XR Diagnostic Mandi Mcdonnell MD IMG XR LOWER EXTREMITY F inal Result * (ABNORMAL) Comprehensive metabolic panel (08/27/2024 1:48 PM EDT) SODIUM 137 133 - 146 mmol/L [facility] POTASSIUM 3.4 3.3 - 5.1 mmol/L [facility] CHLORIDE 99 96 - 108 mmol/L [facility] CO2 28 21 - 35 mmol/L [facility] BUN 4(L) 6 - 19 mg/dL [facility] CREATININE 0.70 0.5 - 1.5 mg/dL [facility] GLUCOSE 93 70 - 99 mg/dL [facility] ALBUMIN 4.1 3.9 - 4.8 g/dL [facility] TOTAL PROTEIN 7.8 6.5 - 8.0 g/dL [facility] CALCIUM 9.9 8.4 - 10.3 mg/dL [facility] ALKALINE PHOSPHATASE 104 39 - 117 U/L [facility] TOTAL BILIRUBIN 0.3 0.0 - 1.2 mg/dL [facility] AST 18 0 - 37 U/L [facility] ALT 21 0 - 40 U/L [facility] GLOBULIN 3.7 1 - 4.8 g/dL [facility] EGFR 103 >59 mL/min/1.7 3m2 [facility] Comment:Estimated glomerular filtration rate calculated using the CKD-EPI refit equation. ANION GAP 13 10 - 20 mmol/L [facility] Blood 08/27/2024 1:48 PM EDT 08/27/2024 1:53 PM EDT Marilin Arcos MD LAB BLOOD BKR ORDERABL ES Final Result [address] [id number] * TSH with reflex (07/01/2024 4:06 PM EDT) TSH 2.44 0.27 - 4.20 uIU/mL [facility] Blood 07/01/2024 4:06 PM EDT 07/01/2024 4:08 PM EDT us Marilin Arcos MD LAB BLOOD BKR ORDERABL ES Final Result [address] [address] from Last 3 Months or Most Recently Relevant to Health Maintenance Insurance [facility] MEDICARE REPLACEMENT [facility] MEDICARE REPLACEMENT [facility] ONE CARE MEDICARE REPLACEMENT MISHA RAYMUNDO [id number] Care Teams Screen And Cyclone Repairer Relationship Specialty Start Date End Date Charlene Angulo MD [address] [facility] [place] [address] PCP - General Geriatric Psychiatry 10/29/21 Additional Source Comments The information contained in this document represents components of the legal health record. It is not the complete legal health record.[facility]
--- OUTSIDE RECORDS SUMMARY | 2025-09-17 14:12 | XMS_ITS | Patient Health Record ---
Author Organization [facility] Address [address] [place] [address] Care Team Providers Care Instrument Maintenance Supervisor Name Role Phone Charlene Angulo Primary Care Provider Noah Palomares Unavailable [phone] Safia Mcintyre Unavailable [phone] Allergies Allergen (clinical drug ingredient) Drug/Non Drug [...] Status Prempro Active Prolia Active Saline Nasal [place] A ctive Triamterene Active Tylenol Active Venlafaxine HCl Acti ve Vitamin D3 25 MCG (1000 UT) 1 capsule Or ally Once a day; Duration: 30 day(s) Active KlonoPIN 2 MG 1 tablet Orally Once a day Not-Taking Aspercreme Lidocaine 4 % 1 application Externally Three times a day; Duration: 30 days 06/23/2021 Not-Taking Amitriptyline HCl Ac tive BuSpar 15mg TID Not-Taking Concerta 54 MG 1 tablet in the morning Orally Once a day Active TEGretol 200 MG 1 tablet Orally Twice a day; Duration: 30 day(s) Not-Taking Nightsplint . . . AFO - L1930; Duration: . Active Glucosamine Not-Taki ng Pepcid Not-Taking Nauzene Not-Taking Adderall Not-Taking Chlorthalidone 25 MG 1 tablet in the morning with food Orally Once a day; Duration: 30 day(s) Not-Taking Glycopyrrolate Not-T aking Ammonium Lactate 12 % 1 application Externally Twice a day; Duration: 30 days Active Meloxicam Not-Taking NexIUM Not-Taking Ajovy Not-Taking Rexulti 1 MG 1 tablet Orally Once a day Not-Taking hydrOXYzine HCl 10 MG as directed Orally Not-Taking Methocarbamol 750 MG 1 tablet Orally every 4 hrs; Duration: 30 day(s) Not-Taking Focalin Not-Taking Cymbalta 60 MG 1 capsule Orally Once a day; Duration: 30 day(s) Not-Taking TEGretol 200 MG 1 tablet Orally Twice a day; Duration: 30 day(s) Not-Taking LORazepam Not-Taking Gabapentin 800 MG 1 tablet Orally Once a day; Duration: 30 day(s) Not-Taking Dicyclomine HCl Not- Taking Lisinopril 5 MG 1 tablet Orally Once a day; Duration: 30 day(s) Not-Taking tiZANidine HCl 4 MG 1 tablet as needed Orally Three times a day Not-Taking Meloxicam Not-Taking Lyrica 200 MG 1 capsule 1 to 3 hours before bedtime Orally Once a day Not-Taking Focalin 10 MG 1 tablet Orally Twice a day Not-Taking PROzac 40 MG 1 capsule Orally Once a day; Duration: 30 day(s) Not-Taking LORazepam 0.5 MG 1 tablet at bedtime as needed Orally Once a day Not-Taking Night Splint AFO - L1930 as directed 10/25/2021 Not-Taking hydroCHLOROthiazide Not-Taking Omeprazole 40mg Not-Takin g Pregabalin Not-Takin g Scopolamine Not-Taki ng amLODIPine Besylate 5 MG 1 tablet Orally Once a day; Duration: 30 day(s) Not-Taking Pantoprazole Sodium 40 MG 1 tablet Orall y Once a day; Duration: 30 day(s) nexium Not-Taking Atorvastatin Calcium 20 MG 1 tablet Oral ly Once a day; Duration: 30 day(s) Active Alendronate Sodium N ot-Taking Myrbetriq Not-Taking Fluoxetine Not-Takin g Geodon 120mg Not-Taking Calcium Active Carbidopa-Levodopa A ctive clonazePAM Active Esomeprazole Magnesium Active Estradiol Not-Taking Indomethacin Not-Rg ing Motley 3 Not-Taking Atrovent HFA PRN Not-Rg ing Lidocaine Not-Taking Gabapentin Active Latuda 80 MG 1 tablet in the evening with food Orally Once a day Active oxyBUTYnin Not-Takin g Levothyroxine Sodium 25 MCG 1 tablet in the morning on an empty stomach Orally Once a day; Duration: 30 day(s) Active VESIcare 10 MG 1 tablet Orally Once a day; Duration: 30 day(s) Not-Taking Nicoderm CQ PRN Active Nitro-Bid 2 % as directed Transdermal Twice a day; Duration: 30 days 07/05/2022 Not-Taking Dbqnemuhn-Tapmafhun-Qjftllu az Not-Taking Melatonin Not-Taking Benadryl Not-Taking Mucinex [...] Problem Status W/U Status Risk Notes Problem Neuropathy (242163137) Neuropathy (G62.9) Active confirmed Problem Raynaud's disease (302163314) Raynaud's disease without gangrene (I73.00) Active confirmed Problem Bilateral atherosclerosis of arteries of lower limbs (disorder) (76536184728869322 ) Atherosclerosis of [place] artery of both lower extremities, with unspecified presence of clinical manifestation (I70.203) Active confirmed Encounters Encounter Location Date Provider Diagnosis [facility] [address] [facility] [address] 02/10/2025 [facility] [place] [address] [place] [address] 04/22/2025 Noahana cristina CoronadoSabas Plan Of Treatment Pending Test Test Name Order Date X ray : Foot, left 3V 10/20/2021 X ray : Foot, left 3V 04/27/2023 X ray : Foot, right 3V 07/05/2022 [id number] NAIL, 6 OR MORE 10/10/2022 31740-[id number] NAIL, 6 OR MORE 03/22/2023 36275-[id number] NAIL, 6 OR MORE 06/14/2023 43359-[id number] NAIL, 6 OR MORE 10/25/2023 [id number] NAIL, 6 OR MORE 05/30/2022 33764-[id number] NAIL, 6 OR MORE 2021 [id number] NAIL, 6 OR MORE 08/26/2020 76843-[id number] NAIL, 6 OR MORE 04/22/2021 26125-[id number] NAIL, 6 OR MORE 02/26/2024 35434-[id number] NAIL, 6 OR MORE 07/01/2024 51377-CCOQ SKIN LESIONS, OVER 4 07/01/20 24 73682-WQRZ SKIN LESIONS, OVER 4 02/26/20 24 28509-XQTB SKIN LESIONS, OVER 4 08/19/20 21 00378-HGVI SKIN LESIONS, OVER 4 05/30/20 22 63642-VQAQ SKIN LESIONS, OVER 4 10/25/20 23 17955-KWSI SKIN LESIONS, OVER 4 06/14/20 23 41961-XXNP SKIN LESIONS, OVER 4 03/22/20 23 62649-AHVR SKIN LESIONS, OVER 4 10/10/20 22 77081-UYPQ SKIN LESIONS, 2 TO 4 04/22/20 21 31402-QJIG SKIN LESIONS, 2 TO 4 08/26/20 20 Insurance Providers Payer Name Payer Address Payer Phone Subscriber Number Group Number Insured Name Patient Relationship to Insured Coverage Start Date Coverage End Date [facility]ly [facility] [employer] Claims [address] M[place] Carr[place] [id number] Sharon Evans Self - patient is the [...]
--- OUTSIDE RECORDS SUMMARY | 2025-09-17 14:12 | XMS_ITS | Encounter Summary ---
Author Organization [facility] Address [address] [facility] [address] [place] [address] Phone Care Team Providers Care Restaurant Line Cook Name Role Phone Charlene Angulo MD Primary Care Provid er Encounter Details Date Type Department Care Team (Late st Contact Info) Description 07/17/2025 Telephone [facility] Endocrinology [address] [place] [address] Jovana Quintana, STEPHENIE [address] [place], [place] [id number] [email or web address] Social History Tobacco Use Types Packs/Day Years [...] as of this encounter Progress Notes * Jovana Blood LPN - 07/22/2025 11:37 AM EDT Left message for pt to return call * Marilin Arcos MD - 07/17/2025 3:41 PM EDT She should be getting a total of 1200 mg of calcium in per day through diet and/or supplement. I believe she doesn't get a lot of calcium (mostly dairy) in her diet so we have advised her to take thesupplement twice daily which I would continue to do unless getting more calcium in her diet. * Jovana Quintana RN - 07/17/2025 2:18 PM EDT Pt left voicemail, asking Dr. Arcos, if based off her last labs, does she need to take regular calcium supplement? documented in this encounter Plan of Treatment Upcoming Encounters Date Type Department Care Team (Late st Contact Info) Description 09/22/2025 11:40 AM EST Office Visit [facility] Endocrinology [address] [address] Marilin Arcos MD [address] [place] [address] 3rd [place] [address] [email or web address] 12/31/2025 11:00 AM EST Office Visit [facility] Rheumatology [address] [place] [address] [place] [address] Mandi Mcdonnell MD [address] [place] [address], [address] [place] [address] [email or web address] documented as of this encounter Visit Diagnoses Not on filedocumented in this encounter Care Teams Restaurant Line Cook Relationship Specialty Start Date End Date Charlene Angulo MD [address] [place] [address] PCP - General Geriatric Psychiatry 10/29/21 documented as of this encounter Additional Source Comments The information contained in this document represents components of the legal health record. It is not the complete legal health record.[facility]
--- OUTSIDE RECORDS SUMMARY | 2025-09-17 14:13 | XMS_ITS | Encounter Summary ---
Author Organization [facility] Address [address] [facility] [address] [place] [address] Phone Care Team Providers Care Portfolio Lead Name Role Phone Charlene Angulo MD Primary Care Provid er Encounter Details Date Type Department Care Team (Late st Contact Info) Description 09/12/2025 Orders Only [facility] Rheumatology [address] [place] [address] Mandi Mcdonnell MD [address] [facility], [address] [place] [address] [email or web address] Folate deficiency (Primary Dx) Social History Tobacco Use Types Packs/Day Years [...] Upcoming Encounters Date Type Department Care Team ([facility] st Contact Info) Description 09/22/2025 11:40 AM EST Office Visit [facility] Endocrinology [address] [address] Marilin Arcos MD 22 [facility] [address] [place] [address] 12/31/2025 11:00 AM EST Office Visit [facility] Rheumatology [address] [place] [address] Mandi Mcdonnell MD [address] [facility], [address] [place] [address] [email or web address] documented as of this encounter Visit Diagnoses Diagnosis Folate deficiency- Primary Other B-complex deficiencies documented in this encounter Care Teams Portfolio Lead Relationship Specialty Start Date End Date Charlene Angulo MD [address] [place] [address] PCP - General Geriatric Psychiatry 10/29/21 documented as of this encounter Additional Source Comments The information contained in this document represents components of the legal health record. It is not the complete legal health record.[facility]
--- OUTSIDE RECORDS SUMMARY | 2025-09-17 14:13 | XMS_ITS | Encounter Summary ---
Author Organization [facility] Address [address] [facility] [address] [place] [address] Phone Care Team Providers Care Apns Name Role Phone Charlene Angulo MD Primary Care Provid er Encounter Details Date Type Department Care Team (Latest Contact Info) Description 03/16/2023 Transcribe Orders [facility] [address] [place] [address] Mandi Mcdonnell MD [address] [facility], [address] [place] [address] [email or web address] Age-related osteoporosis without current pathological fracture [...] Description 09/22/2025 11:40 AM EST Office Visit [facility] Endocrinology [address] [address] Marilin Arcos MD [address] [place] [address] 3rd [place] [address] [email or web address] 12/31/2025 11:00 AM EST Office Visit [facility] Rheumatology [address] [place] [address] Mandi Mcdonnell MD [address] [facility], [address] [place] [address] [email or web address] documented as of this encounter Results * (ABNORMAL) CBC and differential (03/31/2023 2:26 PM EDT) WBC 9.97 4.00 - 11.00 K/uL [facility] RBC 5.06 3.72 - 5.30 M/uL [facility] HGB 14.9 10.6 - 15.5 g/dL [facility] HCT 46.2(H) 32.0 - 45.0 % [facility] PLT 288 140 - 430 K/uL [facility] MCV 91.3 78.0 - 97.0 fL [facility] MCH 29.4 25.0 - 33.0 pg [facility] MCHC 32.3 32.0 - 36.0 g/dL [facility] RDW 14.9 11.0 - 16.0 % [facility] MPV 11.8 8.4 - 12.8 fl [facility] DIFF METHOD Auto [facility] NEUTS 66.5 43.0 - 75.0 % [facility] LYMPHS 23.6 18.2 - 47.4 % [facility] MONOS 6.4 4.00 - 11.00 % [facility] EOS 1.8 0.0 - 8.0 % [facility] BASOS 1.0 0.0 - 2.0 % [facility] Granulocytes, immature (%) 0.7 0.0 - 0.9 % [facility] ABSOLUTE NEUTS 6.63 1.80 - 7.70 K/uL [facility] ABSOLUTE LYMPHS 2.35 1.00 - 3.10 K/uL [facility] ABSOLUTE MONOS 0.64 0.20 - 0.80 K/uL [facility] ABSOLUTE EOS 0.18 0.00 - 0.80 K/uL [facility] ABSOLUTE BASOS 0.10(H) 0.00 - 0.09 K/uL [facility] Granulocytes, immature 0.07(H) 0.00 - 0.05 K/uL [facility] Blood 03/31/2023 2:26 PM EDT 03/31/2023 2:30 PM EDT us Mandi Mcdonnell MD LAB BLOOD BKR ORDERABLES Final Result Performing Organization Address City/[facility]/ZIP Co de Phone Number [address] [address] * (ABNORMAL) Sedimentation rate (ESR) (03/31/2023 2:26 PM EDT) ESR 44(H) 0 - 30 mm/h [facility] Blood 03/31/2023 2:26 PM EDT 03/31/2023 2:30 PM EDT us Mandi Mcdonnell MD LAB BLOOD BKR ORDERABLES Final Result Performing Organization Address City/[facility]/ZIP Co de Phone Number [address] [address] * Uric acid (03/31/2023 2:26 PM EDT) URIC ACID 5.4 2.4 - 7.0 mg/dL [facility] Blood 03/31/2023 2:26 PM EDT 03/31/2023 2:30 PM EDT us Mandi Mcdonnell MD LAB BLOOD BKR ORDERABLES Final Result [address] [address] * Magnesium (03/31/2023 2:26 PM EDT) MAGNESIUM 2.2 1.6 - 2.6 mg/dL [facility] Blood 03/31/2023 2:26 PM EDT 03/31/2023 2:30 PM EDT us Mandi Mcdonnell MD LAB BLOOD BKR ORDERABLES Final Result [address] [address] * (ABNORMAL) C-Reactive Protein (03/31/2023 2:26 PM EDT) C REACTIVE PROTEIN 9.8(H) 0.0 - 4.0 mg/L [facility] Blood 03/31/2023 2:26 PM EDT 03/31/2023 2:30 PM EDT us Mandi Mcdonnell MD LAB BLOOD BKR ORDERABLES Final Result Performing Organization Address [facility]/ZIP Co de Phone Number [address] [address] * (ABNORMAL) Parathyroid hormone (PTH) (03/31/2023 2:26 PM EDT) PARATHYROID HORMONE 70(H) 15 - 65 pg/mL [facility] Blood 03/31/2023 2:26 PM EDT 03/31/2023 2:30 PM EDT us Mandi Mcdonnell MD LAB BLOOD BKR ORDERABLES Final Result [address] [address] * 25-OH vitamin D (03/31/2023 2:26 PM EDT) 25 OH VIT D (TOTAL) 42 30 - 60 ng/mL [facility] Blood 03/31/2023 2:26 PM EDT 03/31/2023 2:30 PM EDT us Mandi Mcdonnell MD LAB BLOOD BKR ORDERABLES Final Result Performing Organization Address City/State/[facility] Co de Phone Number [address] [address] documented in this encounter Visit Diagnoses Diagnosis Age-related osteoporosis without current pathological fracture- Primary Vitamin D insufficiency documented in this encounter Care Teams Apns Relationship Specialty Start Date End Date Charlene Angulo MD [address] [place] [address] PCP - General Geriatric Psychiatry 10/29/21 documented as of this encounter Additional Source Comments The information contained in this document represents components of the legal health record. It is not the complete legal health record.[facility]
--- OUTSIDE RECORDS SUMMARY | 2025-09-17 14:13 | XMS_ITS | Encounter Summary ---
Author Organization [facility] Address [address] [place] [address] [address] [place] [address] Phone Care Team Providers Care Filling Carrier Name Role Phone Charlene Angulo MD Primary Care Provid er Reason for Visit * Reason Onset Date Comments Advice Only 09/01/2025 Encounter Details Date Type Department Care Team (Late st Contact Info) Description 09/01/2025 Telephone [facility] Rheumatology [address] [place] [address] Mandi Mcdonnell MD 22 [facility], [address] [place] [address] [email or web address] Advice Only Social History Tobacco Use Types Packs/Day Years [...] as of this encounter Progress Notes * Kathy Cooper MA - 09/12/2025 8:42 AM EDT Spoke with patient and gave her the contact information for [facility]. * Myra Pena - 09/01/2025 5:41 PM EDT Pt LVM -- requested info: is there a neurology department nearby? Please call and inform per request and/or address as appropriate, thank you! documented in this encounter Plan of Treatment Upcoming Encounters Date Type Department Care Team (Late st Contact Info) Description 09/22/2025 11:40 AM EST Office Visit [facility] Endocrinology [address] [address] Marilin Arcos MD [address] [place] [address] [email or web address] 12/31/2025 11:00 AM EST Office Visit [facility] Rheumatology [address] [place] [address] [place] [address] Mandi Mcdonnell MD [address] [place] [address], [address] [place] [address] [email or web address] documented as of this encounter Visit Diagnoses Not on filedocumented in this encounter Care Teams Filling Carrier Relationship Specialty Start Date End Date Charlene Angulo MD [address] [place] [address] PCP - General Geriatric Psychiatry 10/29/21 documented as of this encounter Additional Source Comments The information contained in this document represents components of the legal health record. It is not the complete legal health record.[facility]
--- OUTSIDE RECORDS SUMMARY | 2025-09-17 14:13 | XMS_ITS | Encounter Summary ---
Author Organization [facility] Address [address] [place] [address] Phone Care Team Providers Care Chicken Catcher Name Role Phone Charlene Angulo MD Primary Care Provid er Encounter Details Date Type Department Care Team (Late st Contact Info) Description 07/02/2024 Transcribe Orders [facility] Specimen Processing [address] [place] [address] Charlene Angulo MD [address] [place], [place] [id number] Social History Tobacco Use Types Packs/Day Years [...] Description 09/22/2025 11:40 AM EST Office Visit [facility] Endocrinology [address] [place] [address] Marilin Arcos MD 22 [facility] 3[address] [place] [address] 12/31/2025 11:00 AM EST Office Visit [facility] Rheumatology [address] [place] [address] Mandi Mcdonnell MD 22 [facility], [address] [place] [address] [email or web address] documented as of this encounter Visit Diagnoses Not on filedocumented in this encounter Care Teams Chicken Catcher Relationship Specialty Start Date End Date Charlene Angulo MD [address] [place] [address] PCP - General Geriatric Psychiatry 10/29/21 documented as of this encounter Additional Source Comments The information contained in this document represents components of the legal health record. It is not the complete legal health record.[facility]
== END 2025-09-17 11:32 | disposition home or self-care (01) ==
LOC: HO.LAB 11:31
PROVIDERS: PCP Internal Medicine Geriatric Medicine; Visit Provider Orthopaedic Surgery
DX: R20.0 Anesthesia of skin (principal); R20.2 Paresthesia of skin; M79.641 Pain in right hand; M79.642 Pain in left hand
CPT/HCPCS: 95886; 95911

== ENCOUNTER → 2025-09-17 11:37 | Outpatient (BNV) | payer OTHER, SELFPAY | PROVIDERS: PCP Internal Medicine Geriatric Medicine; Visit Provider Physical Medicine & Rehabilitation | DX: R20.0 Anesthesia of skin (principal) | CPT/HCPCS: 95886; 95911 ==